=== PATIENT | female | born 1990 | race Caucasian/White ===

== ENCOUNTER → 2023-07-20 12:55 | Outpatient (BNVA) | payer OTHER, SELFPAY | PROVIDERS: PCP Internal Medicine; Visit Provider Physician Assistant Surgical ==

== ENCOUNTER 2023-08-16 13:16 | Outpatient (AMB) | payer OTHER, SELFPAY ==
[2023-08-16 13:33] VITALS: BP 130/92; PULSE 60; TEMP 36.4; O2SAT 100; BMI 37.6
--- NOTE | 2023-08-16 13:33 | MHC.OFFVISWM ---
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 Her goal is to improve her health as she is a single mother & she would like to learn healthy habits to pass to her children.? She reports first being concerned about his/her weight around age 13. She notes that she is at the heaviest of her adult life with the exception of when she was .? He/She has tried multiple methods of weight loss including Weight Watchcer's, multiple diets without permanent results. She lives with her 3 children and is not currently working; she reports her mother, who is on vacation, helps with her children. She does not currently have an established exercise program other than when she takes her children outside to play. The patient knows that a friend of hers named Leonila completed the surgical weight loss program and she is interested in a laparoscopic sleeve gastrectomy. PMH: BHANU, prescribed CPAP, but not compliant PSH: tubal She wakes at:???0600? bed at: 1100pm Breakfast: 0800, toast, eggs, or waffles Lunch: sandwich, mac & cheese Dinner: [place], pasta, After dinner: snacks: candy, chips, pastries Other snacks: sweets Liquids: Fruit juices, water, milk, coffee with sweeteners as a treat, no soda Alcohol intake: ?nil? nicotine: ?denies? marijuana:?denies? drugs:?denies? caffeine: coffee 1-2/day Exercise: nothing established Last mammogram: Last pap smear: control method: tubal Colonoscopy: MARINA: 0 ESS: 3 GERD: 0 QOL 82 PFSH Surgical History (Updated 08/16/23 @ 15:07 by Mitali Bright [facility]) Hx of rhinoplasty Hx of section Social History Alcohol intake: never Patient Tobacco Use Status: Never used Tobacco Review of Systems Const All systems reviewed & are unremarkable except as noted in HPI and below Reports as per HPI Physical Exam On exam, the patient is nontoxic She is in no acute respiratory distress She is anicteric Assessment & Plan Assessment & Plan (1) BMI 37.0-37.9, adult: Code(s): Z68.37 - Body mass index [BMI] 37.0-37.9, adult (2) BHANU (obstructive sleep apnea): Code(s): G47.33 - Obstructive sleep apnea (adult) (pediatric) (3) Non-restorative sleep: Code(s): G47.8 - Other sleep disorders Plan The patient acknowledged non restorative sleep and reports a history of obstructive sleep apnea, while her Howe sleep scale is only 3, I have ordered a sleep study due to her complaints of fatigue 7 non-restorative sleep. The patient also reports difficulty falling and staying asleep due to traumatic events that also interfere with her ability to use CPAP. Will set up with behavioral health. Using a teaching solar sales energy advisor we reviewed normal anatomy and physiology. The patient is interested in a laparoscopic sleeve gastrectomy, so we reviewed handouts regarding healthy diet as well as the need for engagement in diet and exercise or surgical weight loss will fail. The patient noted with her children present she would like to discuss the matter in greater detail since they were quite were restless through the visit. Handouts regarding diet, exercise, protein supplements were provided to the patient in reviewed. She notes that she has Premier protein shakes that her premade at home but seldom uses them. She is instructed to substitute at least 1 meal, preferably 2 and is interested in proceeding with a workup towards laparoscopic sleeve gastrectomy. Given her fixed income, she asked for time to evaluate options regarding the recommended celebrate rebuild protein shakes verses the Premier protein shakes that she has at home and would like to discuss this in greater detail. Handout regarding exercise tracking apps were also provided. I will see the patient back for 1 hour visit in 2 weeks. See orders Orders: Orders Insulin Today G47.33 - Obstructive sleep apnea (adult) (pediatric), G47.8 - Other sleep disorders, Z68.37 - Body mass index [BMI] 37.0-37.9, adult Lipid Panel Today G47.33 - Obstructive sleep apnea (adult) (pediatric), G47.8 - Other sleep disorders, Z68.37 - Body mass index [BMI] 37.0-37.9, adult Vitamin B12 and Folate Today G47.33 - Obstructive sleep apnea (adult) (pediatric), G47.8 - Other sleep disorders, Z68.37 - Body mass index [BMI] 37.0-37.9, adult Zinc Today G47.33 - Obstructive sleep apnea (adult) (pediatric), G47.8 - Other sleep disorders, Z68.37 - Body mass index [BMI] 37.0-37.9, adult Comprehensive Met. Panel Today G47.33 - Obstructive sleep apnea (adult) (pediatric), G47.8 - Other sleep disorders, Z68.37 - Body mass index [BMI] 37.0-37.9, adult Vitamin B1 Today G47.33 - Obstructive sleep apnea (adult) (pediatric), G47.8 - Other sleep disorders, Z68.37 - Body mass index [BMI] 37.0-37.9, adult Vitamin A Today G47.33 - Obstructive sleep apnea (adult) (pediatric), G47.8 - Other sleep disorders, Z68.37 - Body mass index [BMI] 37.0-37.9, adult C Reactive Protein Today G47.33 - Obstructive sleep apnea (adult) (pediatric), G47.8 - Other sleep disorders, Z68.37 - Body mass index [BMI] 37.0-37.9, adult Ferritin Today G47.33 - Obstructive sleep apnea (adult) (pediatric), G47.8 - Other sleep disorders, Z68.37 - Body mass index [BMI] 37.0-37.9, adult PTHI Today G47.33 - Obstructive sleep apnea (adult) (pediatric), G47.8 - Other sleep disorders, Z68.37 - Body mass index [BMI] 37.0-37.9, adult TSH reflex Free T4 Today G47.33 - Obstructive sleep apnea (adult) (pediatric), G47.8 - Other sleep disorders, Z68.37 - Body mass index [BMI] 37.0-37.9, adult H Pylori Breath Test Today G47.33 - Obstructive sleep apnea (adult) (pediatric), G47.8 - Other sleep disorders, Z68.37 - Body mass index [BMI] 37.0-37.9, adult Vitamin D 25-OH Total Today G47.33 - Obstructive sleep apnea (adult) (pediatric), G47.8 - Other sleep disorders, Z68.37 - Body mass index [BMI] 37.0-37.9, adult Hemoglobin A1c Today G47.33 - Obstructive sleep apnea (adult) (pediatric), G47.8 - Other sleep disorders, Z68.37 - Body mass index [BMI] 37.0-37.9, adult ECG 12 lead EKG Today G47.33 - Obstructive sleep apnea (adult) (pediatric), G47.8 - Other sleep disorders, Z68.37 - Body mass index [BMI] 37.0-37.9, adult FL upper GI w air Today G47.33 - Obstructive sleep apnea (adult) (pediatric), G47.8 - Other sleep disorders, Z68.37 - Body mass index [BMI] 37.0-37.9, adult IRON PROFILE Today G47.33 - Obstructive sleep apnea (adult) (pediatric), G47.8 - Other sleep disorders, Z68.37 - Body mass index [BMI] 37.0-37.9, adult Complete Blood Count Auto Diff Today G47.33 - Obstructive sleep apnea (adult) (pediatric), G47.8 - Other sleep disorders, Z68.37 - Body mass index [BMI] 37.0-37.9, adult US abdomen comp w elastography Today G47.33 - Obstructive sleep apnea (adult) (pediatric), G47.8 - Other sleep disorders, Z68.37 - Body mass index [BMI] 37.0-37.9, adult XR chest 2V Today G47.33 - Obstructive sleep apnea (adult) (pediatric), G47.8 - Other sleep disorders, Z68.37 - Body mass index [BMI] 37.0-37.9, adult RT home sleep study Today G47.33 - Obstructive sleep apnea (adult) (pediatric), G47.8 - Other sleep disorders, Z68.37 - Body mass index [BMI] 37.0-37.9, adult Referrals Behavioral Health Referral G47.33 - Obstructive sleep apnea (adult) (pediatric), G47.8 - Other sleep disorders, Z68.37 - Body mass index [BMI] 37.0-37.9, adult Nutrition/Dietitian Referral G47.33 - Obstructive sleep apnea (adult) (pediatric), G47.8 - Other sleep disorders, Z68.37 - Body mass index [BMI] 37.0-37.9, adult Coding Level of Care Code New Pt Level 4 (45487) Diagnoses BMI 37.0-37.9, adult Z68.37 BHANU (obstructive sleep apnea) G47.33 Non-restorative sleep G47.8
[2023-08-25 14:26] LABS: H Pylori Breath Test Negative (Negative)
== END 2023-08-16 15:10 | disposition home or self-care (01) ==
PROVIDERS: PCP Internal Medicine; Visit Provider Surgery
DX: E66.09 Other obesity due to excess calories (principal); Z68.37 Body mass index [BMI] 37.0-37.9, adult; G47.33 Obstructive sleep apnea (adult) (pediatric); G47.8 Other sleep disorders
CPT/HCPCS: 99204

== ENCOUNTER → 2023-08-16 13:16 | Outpatient (BNVA) | payer OTHER, SELFPAY | PROVIDERS: PCP Internal Medicine; Visit Provider Surgery | DX: G47.33 Obstructive sleep apnea (adult) (pediatric) (principal); G47.8 Other sleep disorders; Z11.0 Encounter for screening for intestinal infectious diseases | CPT/HCPCS: 83013; 99202 ==

== ENCOUNTER 2023-08-24 11:00 | Outpatient (AMB) | payer OTHER, SELFPAY ==
--- NOTE | 2023-08-24 11:06 | MHC.OFFVISWM ---
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 Her goal is to improve her health as she is a single mother & she would like to learn healthy habits to pass to her children.? She reports first being concerned about his/her weight around age 13. She notes that she is at the heaviest of her adult life with the exception of when she was .? He/She has tried multiple methods of weight loss including Weight Watchcer's, multiple diets without permanent results. She lives with her 3 children and is not currently working; she reports her mother, who is on vacation, helps with her children. She does not currently have an established exercise program other than when she takes her children outside to play. The patient knows that a friend of hers named Leonila completed the surgical weight loss program and she is interested in a laparoscopic sleeve gastrectomy. PMH: BHANU, prescribed CPAP, but not compliant PSH: tubal She wakes at:???0600? bed at: 1100pm Breakfast: 0800, toast, eggs, or waffles Lunch: sandwich, mac & cheese Dinner: [place], pasta, After dinner: snacks: candy, chips, pastries Other snacks: sweets Liquids: Fruit juices, water, milk, coffee with sweeteners as a treat, no soda Alcohol intake: ?nil? nicotine: ?denies? marijuana:?denies? drugs:?denies? caffeine: coffee 1-2/day Exercise: nothing established Last mammogram: not due Last pap smear: unsure, asymptomatic control method: tubal Colonoscopy: not due/asymptomatic MARINA: 0 ESS: 3 GERD: 0 QOL 82 The patient has lost approximately 10 lb since her initial weight of 247.2 lb/BMI 37.6. At today's weight a.m., she is 237.6 lb with a BMI of 36.1. She is a single mom with toddler aged twins and a 10-year-old at home. 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 She is on a fixed income and notes that she cannot afford Celebrate protein shakes but is using Premier protein which is covered by her assistance. She is also unable to purchase a on body composition scale. Current meal plan: Patient is using 2 premade Premier protein shakes 10 forkfuls protein/vegs Snacks: hardboiled eggs PFSH Surgical History Hx of rhinoplasty Hx of section Social History Alcohol intake: never Patient Tobacco Use Status: Never used Tobacco Review of Systems Const All systems reviewed & are unremarkable except as noted in HPI and below Reports as per HPI Physical Exam Vital Signs: Last Vital Signs Temp 97.3 F 08/24/23 11:21 Pulse 94 08/24/23 11:21 BP 141/92 H 08/24/23 11:21 Pulse Ox 99 08/24/23 11:21 Oxygen Delivery Method Room Air 08/24/23 11:21 BMI result Body Mass Index 36.1 On exam, the patient is nontoxic She is in no acute respiratory distress She is anicteric Assessment & Plan Assessment & Plan (1) BMI 37.0-37.9, adult: Code(s): Z68.37 - Body mass index [BMI] 37.0-37.9, adult (2) BHANU (obstructive sleep apnea): Code(s): G47.33 - Obstructive sleep apnea (adult) (pediatric) (3) Non-restorative sleep: Code(s): G47.8 - Other sleep disorders Plan The patient remains interested in moving forward with laparoscopic sleeve gastrectomy. 71 minutes were spent reviewing the patient's meal plan, exercise options and the importance of following a high-protein/high-fiber diet and avoiding carbohydrates and concentrated fats. The pt had questions re: childcare, activity restrictions that seemed to be answered. Typical postoperative course and the inherent risks of surgery including bleeding, infection, dehydration with the risk of DVT and fatal PE was discussed; the importance of following the diet postoperatively and the risk of weight regain if maladaptive eating and sedentary behavior resume was discussed and apparently understood. As the patient is a single mom, the importance of obtaining assistance regarding her toddlers/twins for a couple weeks postoperatively was reviewed. Activity restrictions were also reviewed and apparently understood. Patient is advised to wean herself off of caffeine since she is currently using caffeinated protein drinks (1/day) before surgery. See orders. The pt will text weekly weights & questions. Meal plan updated at today's visit. The patient will follow-up with me at the end of August. Preop Bariatric Plan 1.?? Nutritional counseling:?Be sure to careful read the number of scoops per shake if you are using powdered mix.? Premier premixed or powdered shakes & the protein bar of your choice.? Remember to be sure the bar has twice as much protein as sugar/carbs! Start with? Premier Protein shakes First shake at 7-9am Second shake, (1 scoops in 8 oz low fat milk) at Noon-2pm 1 protein bar ?bars at 3-4pm. Dinner at 4pm (10 forks of protein and 10 forks of salad/vegetables). Meal to include lean meat (beef, fish, pork, turkey, chicken), cooked vegetables or a salad with olive oil and/or fruits (berries, pears, apples, kiwi). Avoid breads, potatoes, starches, rice, pasta, desserts.? The sooner you decrease carbohydrates & excess fats, the sooner you will reach your goal. 2.?? You must closely monitor your blood glucose/pressure if appropriate due to diabetes or HTN. After dinner snacking should be protein bar if needed. Try to drink 64 oz of water daily and avoid soda and juices. ?2. Each shake would be drunk slowly, like coffee in a period of 2 hours. ?3. Cut each bar in 4 pieces and eat each piece in 30 min to make each bar last 2 hours. ?4. I emphasized the importance of measuring accurately the food portion and measure it carefully when serving the food on the plate ?5. The meal portions include 10 full-size forks of meat and 10 full-size forks of salad. You should always eat the meat portion but you can skip the forks of salad/vegetables and replace with a fruit if you like. The less you do it the better weight loss will be. ?6. One full-size fork is what can be scooped on the fork without falling aside and not what can be bit with the fork. Use regular forks like those you find in a typical restaurant. ?7.? Please send me weight measurements as soon as possible and then once a week. Always include your diet and exercise plan. Alternatively come weekly at the office for weight checks and send me the measurements. ?8. Exercise counseling:? Begin by watching a stretching for beginner?s video.? Start slowly and begin to stretch your muscles.? You should do this before and after each exercise session to prevent injury.? Please use the exercise equipment at your building. Start elliptical with a resistance of 2. Increase resistance by 1 every 3 min to your most comfortable resistance with a max resistance of 8.? Reduce the resistance by 1 every 3 minutes back down to 2 and repeat cycles for 300 calories. Alternatively, start treadmill with a speed of 3.0 and incline of 0, increasing incline by 1 every 3 minutes to the highest comfortable level (max 6 for now) then decrease in the same fashion.? Repeat process to a goal of 300 calories.? Goal of 2000 calories burned or more weekly.? You may also consider use of the stationary bike.? The easiest would be to choose the fat-burn or interval training program on the machine and do this until you reach the 300 calorie goal.? Alternatively, you can manually adjust the resistance in a similar fashion as mentioned above, (resistance of 2-8 with a goal speed of 12 mph).?Tracking calories is essential. 9. Alternatively, start walking outside daily, tracking calories with a goal of 300 calories per day, daily. If [id number] is needed, you can start there, but the goal is DAILY. You can download the [place]?BOND?which can track your time, distance and calories while walking outside.? You press start in the [place] when you start and then stop when you are finished. ? 10.? It is important to avoid and for at least 18 months postoperatively and it has been discussed at the information session 11. Please get labs, EKG and chest X-Ray within 1 week. 12. Discussed and answered all questions regarding?obtained consent to participate in the [facility]?Registry. 13. Please follow the diet plan exactly, without any change.? If you do not like something about the plan or you feel hungry, you need to communicate with me so I can help you revise the plan.? You should not change the plan yourself. 14. Goal is to lose 1.5-2.0 lbs/week 15. Goal is to lose 10% of your weight before surgery, which is about 25 lbs. Ultimate weight goal: 222 lbs before surgery.? Remember that you may need to lose more weight to qualify for surgery if your abdominal ultrasound shows your liver or spleen are enlarged or if your upper GI shows a hiatal hernia. IF YOU EXPERIENCE PAIN, SEVERE SHORTNESS OF BREATH, DIZZINESS OR LIGHTHEADEDNESS, OR SIGNIFICANT CONSTIPATION OR DIARRHEA, (DIARRRHEA CAN OCCUR FROM SOME ARTIFICIAL SWEETENERS) PLEASE NOTIFY THE OFFICE! If you have diabetes, you will need to follow your blood sugars at least twice a day (morning & evening, or as needed if you are shaky/sweaty or feel hypoglycemic).? Please discuss with Dr. Strange.? Text Dr. Strange at [phone] If you have hypertension/high blood pressure, you will need to monitor your blood pressure regarding adjusting medications.? Please discuss with Dr. Strange.? Coding Level of Care Code Tele Est Pt Level 5 (82294) Diagnoses BMI 37.0-37.9, adult Z68.37 BHANU (obstructive sleep apnea) G47.33 Non-restorative sleep G47.8
[2023-08-24 11:21] VITALS: BP 141/92; PULSE 94; TEMP 36.3; O2SAT 99; BMI 36.1
== END 2023-08-24 13:01 | disposition home or self-care (01) ==
PROVIDERS: PCP Internal Medicine; Visit Provider Surgery
DX: E66.9 Obesity, unspecified (principal); Z68.36 Body mass index [BMI] 36.0-36.9, adult; G47.33 Obstructive sleep apnea (adult) (pediatric); G47.8 Other sleep disorders
CPT/HCPCS: 99214

== ENCOUNTER → 2023-08-24 11:00 | Outpatient (BNVA) | payer OTHER, SELFPAY | PROVIDERS: PCP Internal Medicine; Visit Provider Surgery | DX: G47.33 Obstructive sleep apnea (adult) (pediatric) (principal); G47.8 Other sleep disorders | CPT/HCPCS: 99212 ==

== ENCOUNTER 2023-08-28 08:51 | Outpatient (REF) | payer OTHER, SELFPAY ==
--- NOTE | ~2023-08-28 | XR_ITS ---
EXAMINATION: XR CHEST CLINICAL INFORMATION: Overweight COMPARISON: None available. TECHNIQUE: 2 views of the chest were obtained. FINDINGS: No significant abnormality is noted involving the heart, lungs, mediastinum, bony thorax or soft tissues. XR/XR chest 2V IMPRESSION: Unremarkable examination.
--- NOTE | 2023-08-28 08:57 | ECG_ITS ---
Test Reason : bmi 37.6 37.9 Blood Pressure : / mmHG Vent. Rate : 078 BPM Atrial Rate : 078 BPM P-R Int : 168 ms QRS Dur : 084 ms QT Int : 392 ms P-R-T Axes : 014 006 050 degrees QTc Int : 446 ms Normal sinus rhythm Normal ECG No previous ECGs available Referred By: Humza Strange Electronically Signed By:STEPHANIE VAZQUEZ
[2023-08-28 09:42] LABS: MANUAL DIFF FLAG NO
[2023-08-28 10:32] LABS: Basophils Percent Auto 0.5 % (0-2); Eosinophils Absolute Auto 0.1 X10*3/uL (0.0-0.4); Eosinophils Percent Auto 1.4 % (0-4); Hematocrit 42.9 % (37.0-47.0); Hemoglobin 14.1 g/dl (12.0-16.0); Imm Gran Abs Auto 0.02 X10*3/uL (0.00-0.03); Imm Gran Pct Auto 0.3 % (0.0-0.4); Lymphocytes Percent Auto 31.6 % (20-40); Mean Corpuscular HGB Conc 32.9 g/dl (31.0-35.0); Mean Corpuscular Hemoglobin 29.6 pg (27.0-33.0); Mean Corpuscular Volume 89.9 fL (80.0-98.0); Mean Platelet Volume 9.8 fL (9.4-12.3); Monocytes Absolute Auto 0.4 X10*3/uL (0.1-1.2); Monocytes Percent Auto 5.6 % (2-11); Neutrophils Absolute Auto 3.9 x10*3/uL (2.0-8.3); Neutrophils Percent Auto 60.6 % (45-73); Platelet Count 390 X10*3/uL (160-400); Red Blood Count 4.77 X10*6/uL (4.20-5.50); Red Cell Distribution Width 12.6 % (11.0-16.0); White Blood Count 6.4 X10*3/uL (4.8-10.8)
[2023-08-28 10:43] LABS: Estimated Average Glucose 94 mg/dL; Hemoglobin A1c % 4.9 % (<6.0)
[2023-08-28 11:22] LABS: Alanine Aminotransferase 16 U/L (0-31); Albumin Level 4.1 g/dL (3.5-5.0); Alkaline Phosphatase 93 U/L (39-117); Anion Gap 11 (12-20); Aspartate Amino Transferase 17 U/L (5-31); Bilirubin Total 0.4 mg/dL (0.0-1.0); Blood Urea Nitrogen 18 mg/dL (9-16); C Reactive Protein 0.56 mg/dL (< or = 0.50); Calcium 9.4 mg/dL (8.4-10.2); Carbon Dioxide 25 mmol/L (22-29); Chloride 106 mmol/L (96-108); Cholesterol 165 mg/dL (<200); Estimated Glomerular Filt Rate > 60; Glucose Random 83 mg/dL (60-115); HDL Cholesterol 44 mg/dL (>40); Iron 75 mcg/dL (30-160); LDL Cholesterol Calculated 103 mg/dL (<100); Percent Iron Saturation 23 % (15-50); Potassium 3.9 mmol/L (3.3-5.1); Sodium 138 mmol/L (135-145); Total Iron Binding Capacity 325 mcg/dL (228-428); Total Protein 7.7 g/dL (6.5-8.0); Triglycerides 90 mg/dL (<150); Unsaturated Iron Binding 250 ug/dL
[2023-08-28 11:28] LABS: Ferritin 21 ng/mL (10-122); Insulin 6 uU/mL (2-29); TSH reflex Free T4 0.73 uIU/mL (0.32-4.0); Vitamin D 25-OH Total 42.8 ng/mL (>30)
[2023-08-28 11:32] LABS: Folate 14.9 ng/mL (> or = 4.0); Vitamin B12 485 pg/mL (200-900)
[2023-08-29 16:09] LABS: Calcium (PTHI) 9.5 mg/dL (8.6-10.2); PTHI 30 pg/mL (16-77)
[2023-08-31 14:53] LABS: Zinc 78 mcg/dL (60-130)
[2023-09-01 16:18] LABS: Vitamin A 44 mcg/dL (38-98)
[2023-09-02 08:44] LABS: Vitamin B1 12 nmol/L (8-30)
== END 2023-08-28 08:52 | disposition home or self-care (01) ==
LOC: HO.XRAY 08:51
PROVIDERS: PCP Internal Medicine; Visit Provider Surgery
DX: G47.33 Obstructive sleep apnea (adult) (pediatric) (principal); G47.8 Other sleep disorders; E66.9 Obesity, unspecified
CPT/HCPCS: 36415; 71046; 80053; 80061; 82306; 82607; 82728; 82746; 83036; 83525; 83540; 83970; 84425; 84443; 84590; 84630; 85025; 86140; 93005

== ENCOUNTER 2023-08-30 12:13 | Outpatient (AMB) | payer OTHER, SELFPAY ==
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
== END 2023-08-30 12:38 | disposition home or self-care (01) ==
LOC: HO.HBST 12:14
PROVIDERS: PCP Internal Medicine; Visit Provider Counselor Mental Health
DX: F41.1 Generalized anxiety disorder (principal); Z68.37 Body mass index [BMI] 37.0-37.9, adult
CPT/HCPCS: 90791

== ENCOUNTER → 2023-08-30 12:13 | Outpatient (BNVA) | payer OTHER, SELFPAY | PROVIDERS: PCP Internal Medicine; Visit Provider Counselor Mental Health ==

== ENCOUNTER 2023-09-19 12:06 | Outpatient (AMB) | payer OTHER, SELFPAY ==
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
== END 2023-09-19 14:52 | disposition home or self-care (01) ==
LOC: HO.HBST 12:06
PROVIDERS: PCP Internal Medicine; Visit Provider Counselor Mental Health
DX: F41.1 Generalized anxiety disorder (principal); Z68.37 Body mass index [BMI] 37.0-37.9, adult
CPT/HCPCS: 90832

== ENCOUNTER → 2023-09-19 12:06 | Outpatient (BNVA) | payer OTHER, SELFPAY | PROVIDERS: PCP Internal Medicine; Visit Provider Counselor Mental Health ==

== ENCOUNTER → 2023-09-21 11:03 | Outpatient (BNVA) | payer OTHER, SELFPAY | PROVIDERS: PCP Internal Medicine; Visit Provider Dietitian, Registered | DX: E66.9 Obesity, unspecified (principal) | CPT/HCPCS: 97802 ==

== ENCOUNTER → 2023-09-24 11:08 | Outpatient (BNVA) | payer OTHER, SELFPAY | PROVIDERS: PCP Internal Medicine; Visit Provider Surgery ==

== ENCOUNTER → 2023-09-27 14:00 | Outpatient (REF) | payer OTHER, SELFPAY | LOC: HO.SL 14:00 | PROVIDERS: PCP Internal Medicine; Visit Provider Surgery | DX: G47.33 Obstructive sleep apnea (adult) (pediatric) (principal) | CPT/HCPCS: 95806 ==

== ENCOUNTER → 2023-09-27 14:08 | Outpatient (BNV) | payer OTHER, SELFPAY | PROVIDERS: PCP Internal Medicine; Visit Provider Internal Medicine | DX: R06.83 Snoring (principal) | CPT/HCPCS: 95806 ==

== ENCOUNTER 2023-10-03 11:04 | Outpatient (AMB) | payer OTHER, SELFPAY ==
--- NOTE | 2023-10-03 11:11 | MHC.OFFVISWM ---
Intake VS Expanded 10/03/23 11:21 BP 119/56 L Blood Pressure Location Rt brachial Blood Pressure Position Sitting Pulse 67 Pulse Source Pulse Oximeter Temp 96.9 F Temperature Source Tympanic Pulse Oximetry 97 Oxygen Delivery Method Room Air Height 5 ft 8 in Weight 229 lb 3.2 oz BMI 34.8 Body Fat % 42.1 Body Fat Mass 96.4 Fat Free Mass 132.8 Visceral Fat Rating 9.0 Body Water % 41.5 Body Water Mass 95.0 Muscle Mass/Score 126.2 Basal Metabolic Rate/Score 1,864 Intake Visit Reasons: ov f/u SWL Allergies No Known Allergies Allergy (Verified 10/03/23 11:17) HPI HPI Comments History of Present Illness Details This is a 32 year old woman who is here to start SWL program with SWL classes. Her goal is to improve her health as she is a single mother & she would like to learn healthy habits to pass to her children.? She reports first being concerned about his/her weight around age 13. She notes that she is at the heaviest of her adult life with the exception of when she was .? He/She has tried multiple methods of weight loss including Weight Watchcer's, multiple diets without permanent results. She lives with her 3 children and is not currently working; she reports her mother, who is on vacation, helps with her children. She does not currently have an established exercise program other than when she takes her children outside to play. The patient knows that a friend of hers named Leonila completed the surgical weight loss program and she is interested in a laparoscopic sleeve gastrectomy. PMH: BHANU, prescribed CPAP, but not compliant PSH: tubal Preop work-up SWL classes BH f/u pending RD cleared Labs MVI wnl, CRP 0.56 H. pylori neg EKG NSR CXR NAD Abd U/S UGI MARINA: 0 ESS: 3 GERD: 0 QOL 82 The patient has lost 18 lb since her initial weight of 247.2 lb/BMI 37.6. At today's weight a.m., she is 229.2/BMI 34.8 & is congratulated on her 18 lb weight loss since entering the program. She denies any hunger or concerns regarding the meal plan. We reviewed her goal of 25 lb weight loss and weight of 222 lb. She is a single mom with toddler-aged twins and a 10-year-old at home. 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 She is on a fixed income and notes that she cannot afford Celebrate protein shakes but is using Premier protein which is covered by her assistance. She is also unable to purchase a on body composition scale. Current meal plan: Patient is using 2 premade Premier protein shakes 10 forkfuls protein/vegs Snacks: hardboiled eggs Using Flintstones chewable MVI 2/day She's drinking about 30 oz of water/day Exercise: She is exercising several times a week, mostly at home with videos and exercise equipment due to childcare. She goes to the gym roughly twice a week, per her exercise watch, is burning approximately 250-350 kcal per exercise session. At this time, she is exercising approximately 4 times a week but not trending calories each time. [facility] Surgical History Hx of rhinoplasty Hx of section Social History Alcohol intake: never Patient Tobacco Use Status: Never used Tobacco Review of Systems Const All systems reviewed & are unremarkable except as noted in HPI and below Results Reviewed Results Reviewed: labs 08/28/23 Hb 14.4 N/N Fe wnl; wbc 6.4, Plts 390K H pylori neg CRP elevated at 0.56, Insulin 6, HbA1C 4.9, LDL slightly high, Chol 165 MVI WNL BUN 18 (elevated), Cr 0.65 CXR NAD U/S pending UGI pending Repeat sleep study was negative for BHANU, but the patient carries the diagnosis from previous sleep study Assessment & Plan Assessment & Plan (1) BMI 34.0-34.9,adult: Code(s): Z68.34 - Body mass index [BMI] 34.0-34.9, adult (2) Non-restorative sleep: Code(s): G47.8 - Other sleep disorders (3) BHANU (obstructive sleep apnea): Code(s): G47.33 - Obstructive sleep apnea (adult) (pediatric) Plan No changes are made to the patient's meal plan. Because of her limited funds, she again noted that she will not be able to afford celebrate rebuild at this time and cannot afford a body composition scale nor protein products other than what she is using. The importance of hydration to minimize risk of dehydration and DVT/fatal PE was discussed and apparently understood. The importance of more accurately tracking calorie burned by exercise was discussed. Patient is congratulated on her ongoing healthy lifestyle changes and the importance of diet and exercise as part of surgical weight loss was again reviewed. The patient remains interested in a laparoscopic sleeve gastric and will follow-up with me in 3 weeks. Coding Level of Care Code Est Pt Level 4 (61688) Diagnoses BMI 34.0-34.9,adult Z68.34 Non-restorative sleep G47.8 BHANU (obstructive sleep apnea) G47.33
[2023-10-03 11:21] VITALS: BP 119/56; PULSE 67; TEMP 36.1; O2SAT 97; BMI 34.8
== END 2023-10-03 12:02 | disposition home or self-care (01) ==
PROVIDERS: PCP Internal Medicine; Visit Provider Surgery
DX: E66.9 Obesity, unspecified (principal); Z68.34 Body mass index [BMI] 34.0-34.9, adult; G47.8 Other sleep disorders; G47.33 Obstructive sleep apnea (adult) (pediatric)
CPT/HCPCS: 99214

== ENCOUNTER → 2023-10-03 11:04 | Outpatient (BNVA) | payer OTHER, SELFPAY | PROVIDERS: PCP Internal Medicine; Visit Provider Surgery | DX: G47.8 Other sleep disorders (principal); G47.33 Obstructive sleep apnea (adult) (pediatric) | CPT/HCPCS: 99212 ==

== ENCOUNTER 2023-10-09 10:25 | Outpatient (AMB) | payer OTHER, SELFPAY ==
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
== END 2023-10-09 10:29 | disposition home or self-care (01) ==
LOC: HO.HBST 10:25
PROVIDERS: PCP Internal Medicine; Visit Provider Counselor Mental Health
DX: F41.1 Generalized anxiety disorder (principal); Z68.37 Body mass index [BMI] 37.0-37.9, adult
CPT/HCPCS: 90832

== ENCOUNTER → 2023-10-09 10:25 | Outpatient (BNVA) | payer OTHER, SELFPAY | PROVIDERS: PCP Internal Medicine; Visit Provider Counselor Mental Health ==

== ENCOUNTER 2023-10-25 11:00 | Outpatient (AMB) | payer OTHER, SELFPAY ==
--- NOTE | 2023-10-25 11:14 | A.OFFVIS_ITS ---
Intake VS Expanded 10/25/23 11:32 BP 146/76 H Blood Pressure Location Rt brachial Blood Pressure Position Sitting Pulse 67 Pulse Source Pulse Oximeter Temp 96.0 F L Temperature Source Tympanic Pulse Oximetry 99 Oxygen Delivery Method Room Air Height 5 ft 8 in Weight 224 lb 6.4 oz BMI 34.1 Body Fat % 41.9 Body Fat Mass 93.0 Fat Free Mass 131.0 Visceral Fat Rating 9.0 Body Water % 41.9 Body Water Mass 94.0 Muscle Mass/Score 124.6 Basal Metabolic Rate/Score 1,836 Intake Visit Reasons: ov f/u SWL Lump Maker Required: No Fare Register Repairer: Fare Register Repairer offered & declined Allergies No Known Allergies Allergy (Verified 10/25/23 11:40) Medication List - Last Reconciled 10/25/23 by Humza Strange MD, FACS, FASMBS ibuprofen 600 mg PO TID oxycodone-acetaminophen 5-325 mg 1 tab PO DAILY PRN sumatriptan succinate mg PO DAILY HPI HPI Comments History of Present Illness Details The patient presents for f/u SWL; initial weight of 247.2 lb/BMI 37.6 and prior h/o BHANU (non-compliant with CPAP) was noted on entry into the program but retesting did not show BHANU. At today's weight she is 224.4/BMI 34.1 & is congratulated on her 23 lb weight loss since entering the program. She denies any hunger or concerns regarding the meal plan. We reviewed her goal of 25 lb weight loss and weight of 222 lb. Her UGI & Abd U/S elastography are scheduled for next week. She is interested in surgery this year, if possible. Her mom will help with her 17 month old children. She is a single mom with toddler-aged twins and a 10-year-old at home. 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 She is on a fixed income and notes that she cannot afford Celebrate protein shakes but is using Premier protein which is covered by her assistance. She is also unable to purchase a on body composition scale. Current meal plan: Patient is using 2 premade Premier protein shakes 10 forkfuls protein/vegs Snacks: hardboiled eggs Using Flintstones chewable MVI 2/day She's drinking about 30 oz of water/day Exercise: She is exercising several times a week, mostly at home with videos and exercise equipment due to childcare. She goes to the gym roughly twice a week, per her exercise watch, is burning approximately 250-350 kcal per exercise session. At this time, she is exercising approximately 4 times a week but not trending calories each time. PMH: BHANU (non-compliant with CPAP) reported PSH: tubal MARINA: 0 ESS: 3 GERD: 0 QOL 82 Preop work-up SWL classes 07/[address] cleared Labs MVI wnl, CRP 0.56 H. pylori neg EKG NSR CXR NAD Abd U/S UGI PFSH Surgical History Hx of rhinoplasty Hx of section Social History Alcohol intake: never Patient Tobacco Use Status: Never used Tobacco Review of Systems Const All systems reviewed & are unremarkable except as noted in HPI and below Physical Exam On exam, the patient is nontoxic She is in no acute respiratory distress She is anicteric Results Reviewed Results Reviewed: labs 08/28/23 Hb 14.4 N/N Fe wnl; wbc 6.4, Plts 390K H pylori neg CRP elevated at 0.56, Insulin 6, HbA1C 4.9, LDL slightly high, Chol 165 MVI WNL BUN 18 (elevated), Cr 0.65 CXR NAD U/S UGI Repeat sleep study was negative for BHANU, but the patient carries the diagnosis from previous sleep study Assessment & Plan Assessment & Plan (1) BMI 34.0-34.9,adult: Code(s): Z68.34 - Body mass index [BMI] 34.0-34.9, adult (2) Generalized anxiety disorder: Code(s): F41.1 - Generalized anxiety disorder (3) Non-restorative sleep: Code(s): G47.8 - Other sleep disorders (4) BHANU (obstructive sleep apnea): Code(s): G47.33 - Obstructive sleep apnea (adult) (pediatric) Plan The patient is congratulated on her ongoing healthy lifestyle changes. She continues to note challenges related to her fixed income and purchasing of protein products. She notes that she is exercising to 300-350 kcal per session, 3 days a week and is interested in proceeding with laparoscopic or open sleeve gastrectomy, possible hiatal hernia repair, possible ventral hernia repair, intraoperative upper endoscopy. We briefly reviewed the typical postoperative course including overnight stay in the hospital as well as the unlikely but possible risks of bleeding or need for reoperation, dehydration that could cause DVT and fatal PE and the option of medical management instead of surgery. The patient is hopeful to proceed with surgery this month. Will submit to insurance Coding Level of Care Code Est Pt Level 4 (00785) Diagnoses BMI 34.0-34.9,adult Z68.34 Generalized anxiety disorder F41.1 Non-restorative sleep G47.8 BHANU (obstructive sleep apnea) G47.33
[2023-10-25 11:32] VITALS: BP 146/76; PULSE 67; TEMP 35.6; O2SAT 99; BMI 34.1
== END 2023-10-25 11:48 | disposition home or self-care (01) ==
PROVIDERS: PCP Internal Medicine; Visit Provider Surgery
DX: E66.9 Obesity, unspecified (principal); Z68.34 Body mass index [BMI] 34.0-34.9, adult; G47.33 Obstructive sleep apnea (adult) (pediatric); F41.1 Generalized anxiety disorder; G47.8 Other sleep disorders
CPT/HCPCS: 99214

== ENCOUNTER → 2023-10-25 11:00 | Outpatient (BNVA) | payer OTHER, SELFPAY | PROVIDERS: PCP Internal Medicine; Visit Provider Surgery | DX: G47.33 Obstructive sleep apnea (adult) (pediatric) (principal); F41.1 Generalized anxiety disorder; G47.8 Other sleep disorders | CPT/HCPCS: 99212 ==

== ENCOUNTER 2023-11-01 15:30 | Outpatient (AMB) | payer OTHER, SELFPAY ==
[2023-11-01 15:39] VITALS: BP 122/72; PULSE 75; TEMP 35.9; O2SAT 99; BMI 33.1
--- NOTE | 2023-11-01 15:39 | MHC.OFFVISWM ---
Intake VS Expanded 11/01/23 15:39 BP 122/72 Blood Pressure Location Rt brachial Blood Pressure Position Sitting Pulse 75 Pulse Source Pulse Oximeter Temp 96.7 F L Temperature Source Temporal Artery Scan Pulse Oximetry 99 Oxygen Delivery Method Room Air Height 5 ft 8 in Weight 218 lb BMI 33.1 Body Fat % 42.1 Body Fat Mass 91.8 Fat Free Mass 126.2 Visceral Fat Rating 9.0 Body Water % 41.5 Body Water Mass 90.4 Muscle Mass/Score 119.8 Basal Metabolic Rate/Score 1,770 Intake Visit Reasons: pre op SWL Chemical Processing Equipment Repairer Required: No Community Music Therapist: Community Music Therapist offered & declined Allergies No Known Allergies Allergy (Verified 11/01/23 15:42) Medication List - Last Reconciled 11/01/23 by Humza Strange MD, FACS, FASS oxycodone-acetaminophen 5-325 mg 1 tab PO DAILY PRN sumatriptan succinate mg PO DAILY HPI HPI Comments History of Present Illness Details The patient presents for f/u SWL; initial weight of 247.2 lb/BMI 37.6 and prior h/o BHANU (non-compliant with CPAP) was noted on entry into the program but retesting did not show BHANU. At today's weight she is 224.4/BMI 34.1 & is congratulated on her 23 lb weight loss since entering the program. She denies any hunger or concerns regarding the meal plan. We reviewed her goal of 25 lb weight loss and weight of 222 lb. Her UGI & Abd U/S elastography are scheduled for next week. She is interested in surgery this year, if possible. Her mom will help with her 17 month old children. She is a single mom with toddler-aged twins and a 10-year-old at home. 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 She is on a fixed income and notes that she cannot afford Celebrate protein shakes but is using Premier protein which is covered by her assistance. She is also unable to purchase a on body composition scale. Current meal plan: Patient is using 2 premade Premier protein shakes Using Flintstones chewable MVI 2/day She's drinking about 50-60 oz of water/day Exercise: She is exercising several times a week, mostly at home with videos and exercise equipment due to childcare. She goes to the gym roughly twice a week, per her exercise watch, is burning approximately 250-350 kcal per exercise session. At this time, she is exercising approximately 4 times a week but not trending calories each time. PMH: BHANU (non-compliant with CPAP) reported PSH: tubal MARINA: 0 ESS: 3 GERD: 0 QOL 82 Preop work-up SWL classes 07/[address] cleared Labs MVI wnl, CRP 0.56 H. pylori neg EKG NSR CXR NAD Abd U/S UGI PFSH Surgical History Hx of rhinoplasty Hx of section Social History Alcohol intake: never Patient Tobacco Use Status: Never used Tobacco Review of Systems Const All systems reviewed & are unremarkable except as noted in HPI and below Reports as per HPI Physical Exam Vital Signs: Last Vital Signs Temp 96.7 F L 11/01/23 15:39 Pulse 75 11/01/23 15:39 BP 122/72 11/01/23 15:39 Pulse Ox 99 11/01/23 15:39 Oxygen Delivery Method Room Air 11/01/23 15:39 BMI result Body Mass Index 33.1 On exam, the patient is nontoxic She is in no acute respiratory distress She is anicteric Results Reviewed Results Reviewed: labs 08/28/23 Hb 14.4 N/N Fe wnl; wbc 6.4, Plts 390K H pylori neg CRP elevated at 0.56, Insulin 6, HbA1C 4.9, LDL slightly high, Chol 165 MVI WNL BUN 18 (elevated), Cr 0.65 CXR NAD U/S UGI Repeat sleep study was negative for BHANU, but the patient carries the diagnosis from previous sleep study Assessment & Plan Assessment & Plan (1) BMI 34.0-34.9,adult: Code(s): Z68.34 - Body mass index [BMI] 34.0-34.9, adult (2) Generalized anxiety disorder: Code(s): F41.1 - Generalized anxiety disorder (3) Non-restorative sleep: Code(s): G47.8 - Other sleep disorders (4) BHANU (obstructive sleep apnea): Code(s): G47.33 - Obstructive sleep apnea (adult) (pediatric) Plan The patient has her upper GI and abdominal ultrasound pending. The patient would like to proceed with a laparoscopic sleeve gastrectomy, possible hiatal hernia repair, intraoperative upper endoscopy and possible ventral hernia repair. Options of medical management were reviewed. At this point in time, we are awaiting input from her insurance. I reviewed the inherent risks of this procedure which include, but are not limited to: Bleeding that could require another operation or blood transfusion; the inherent risks of transfusion reaction infectious disease from blood transfusions; the risk of staple line leaks that could cause sepsis, multi-system organ failure and ; the risk of mesenteric or deep vein thrombosis of the lower extremities that could cause a fatal pulmonary embolism was reviewed; the risk of GERD that could require conversion to gastric bypass was discussed; the risk of recurrent hiatal hernia, especially in the setting of weight regain was reviewed. The risk of weight regain if maladaptive eating and sedentary behavior continue was discussed. The importance of proper diet and increased activity to augment surgical weight loss and the fact that no operation would result in weight loss of poor dietary decisions and sedentary behavior are resumed were discussed at length and apparently understood. The patient had the option of having a frame wirer present and declined this option. The importance of following the recommended meal plan and exercise program were reviewed. Typical preop including 2 day bowel prep, pain management, early ambulation, hydrating to 50-60 oz water per day not including protein shakes was discussed. The risk of weight regain if she resumes maladaptive eating and sedentary behavior was reviewed. Prescriptions were sent as she requested to her pharmacy. Patient notes she is currently having some back issues and is taking oxycodone and Flexeril. The risks of nausea and constipation as well as Sleepiness and my recommendation to postpone surgery until her back issue his settle down was discussed. Patient noted that she will stop taking these medications. She also periodically takes ibuprofen and naproxen her back and also for migraines. The fact that she cannot take this medication due to sleeve gastrectomy was discussed and apparently understood. 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 She will receive Ancef, 2 g IV on-call. Orders: Orders Vitamin B1 Today F41.1 - Generalized anxiety disorder, G47.33 - Obstructive sleep apnea (adult) (pediatric), G47.8 - Other sleep disorders, Z68.34 - Body mass index [BMI] 34.0-34.9, adult Lipid Panel Today F41.1 - Generalized anxiety disorder, G47.33 - Obstructive sleep apnea (adult) (pediatric), G47.8 - Other sleep disorders, Z68.34 - Body mass index [BMI] 34.0-34.9, adult Type and Screen Today F41.1 - Generalized anxiety disorder, G47.33 - Obstructive sleep apnea (adult) (pediatric), G47.8 - Other sleep disorders, Z68.34 - Body mass index [BMI] 34.0-34.9, adult Vitamin B12 Today F41.1 - Generalized anxiety disorder, G47.33 - Obstructive sleep apnea (adult) (pediatric), G47.8 - Other sleep disorders, Z68.34 - Body mass index [BMI] 34.0-34.9, adult Partial Thromboplastin Time Today F41.1 - Generalized anxiety disorder, G47.33 - Obstructive sleep apnea (adult) (pediatric), G47.8 - Other sleep disorders, Z68.34 - Body mass index [BMI] 34.0-34.9, adult Vitamin D 25-OH Total Today F41.1 - Generalized anxiety disorder, G47.33 - Obstructive sleep apnea (adult) (pediatric), G47.8 - Other sleep disorders, Z68.34 - Body mass index [BMI] 34.0-34.9, adult Complete Blood Count Auto Diff Today F41.1 - Generalized anxiety disorder, G47.33 - Obstructive sleep apnea (adult) (pediatric), G47.8 - Other sleep disorders, Z68.34 - Body mass index [BMI] 34.0-34.9, adult IRON PROFILE Today F41.1 - Generalized anxiety disorder, G47.33 - Obstructive sleep apnea (adult) (pediatric), G47.8 - Other sleep disorders, Z68.34 - Body mass index [BMI] 34.0-34.9, adult Comprehensive Met. Panel Today F41.1 - Generalized anxiety disorder, G47.33 - Obstructive sleep apnea (adult) (pediatric), G47.8 - Other sleep disorders, Z68.34 - Body mass index [BMI] 34.0-34.9, adult TSH reflex Free T4 Today F41.1 - Generalized anxiety disorder, G47.33 - Obstructive sleep apnea (adult) (pediatric), G47.8 - Other sleep disorders, Z68.34 - Body mass index [BMI] 34.0-34.9, adult Vitamin A Today F41.1 - Generalized anxiety disorder, G47.33 - Obstructive sleep apnea (adult) (pediatric), G47.8 - Other sleep disorders, Z68.34 - Body mass index [BMI] 34.0-34.9, adult Hemoglobin A1c Today F41.1 - Generalized anxiety disorder, G47.33 - Obstructive sleep apnea (adult) (pediatric), G47.8 - Other sleep disorders, Z68.34 - Body mass index [BMI] 34.0-34.9, adult Prothrombin Time INR Today F41.1 - Generalized anxiety disorder, G47.33 - Obstructive sleep apnea (adult) (pediatric), G47.8 - Other sleep disorders, Z68.34 - Body mass index [BMI] 34.0-34.9, adult C Reactive Protein Today F41.1 - Generalized anxiety disorder, G47.33 - Obstructive sleep apnea (adult) (pediatric), G47.8 - Other sleep disorders, Z68.34 - Body mass index [BMI] 34.0-34.9, adult Ferritin Today F41.1 - Generalized anxiety disorder, G47.33 - Obstructive sleep apnea (adult) (pediatric), G47.8 - Other sleep disorders, Z68.34 - Body mass index [BMI] 34.0-34.9, adult Zinc Today F41.1 - Generalized anxiety disorder, G47.33 - Obstructive sleep apnea (adult) (pediatric), G47.8 - Other sleep disorders, Z68.34 - Body mass index [BMI] 34.0-34.9, adult Medications: New ondansetron HCl 4 mg PO Q6H PRN 20 tabs 0RF nausea and vomiting sucralfate 10 mL PO BID 30 days 600 mL 2RF acetaminophen 500 mg (15 mL) PO Q6H PRN 237 mL 2RF fever or pain polyethylene glycol 3350 (Miralax) Take 7 packets 2 days before surgery and 7 packets 1 day before surgery. Mix each packet with 8 oz's of water before surgery. 14 packets 0RF pantoprazole 40 mg PO QAM 30 days 30 tabs 2RF Coding Level of Care Code Est Pt Level 4 (21943) Diagnoses BMI 34.0-34.9,adult Z68.34 Generalized anxiety disorder F41.1 Non-restorative sleep G47.8 BHANU (obstructive sleep apnea) G47.33
== END 2023-11-01 16:25 | disposition home or self-care (01) ==
PROVIDERS: PCP Internal Medicine; Visit Provider Surgery
DX: E66.9 Obesity, unspecified (principal); Z68.33 Body mass index [BMI] 33.0-33.9, adult; G47.33 Obstructive sleep apnea (adult) (pediatric)
CPT/HCPCS: 99024

== ENCOUNTER → 2023-11-01 15:30 | Outpatient (BNVA) | payer OTHER, SELFPAY | PROVIDERS: PCP Internal Medicine; Visit Provider Surgery | DX: Z01.818 Encounter for other preprocedural examination (principal); G47.33 Obstructive sleep apnea (adult) (pediatric); G47.8 Other sleep disorders; F41.1 Generalized anxiety disorder | CPT/HCPCS: 99212 ==

== ENCOUNTER 2023-11-02 08:32 | Outpatient (REF) | payer OTHER, SELFPAY ==
--- NOTE | ~2023-11-02 | US_ITS ---
EXAMINATION: US COMPLETE ABDOMEN WITH LIVER ELASTOGRAPHY CLINICAL INFORMATION: Obesity COMPARISON: None available. TECHNIQUE: Real-time imaging of the abdominal viscera. Noninvasive ultrasound liver fibrosis assessment is performed using Angela ElastPQ point quantification shear wave elastography (2D-SWE) with a C5-2 MHz transducer. Multiple elastography samples are obtained. FINDINGS: PANCREAS: Normal. ABDOMINAL AORTA: The proximal, middle, and distal aortic segments are normal in caliber. INFERIOR VENA CAVA: Visualized portions are normal. LIVER: The liver demonstrates normal size, contour and echogenicity. No intrahepatic biliary duct dilatation. 2.7 x 2.2 x 2.9 cm echogenic lesion in the right lobe of the liver probably representing a hemangioma. The right lobe measures 15 cm in length. The left lobe measures 9.6 cm in length. Portal flow is normal/hepatopedal Shear wave liver elastography median stiffness is 1.27 m/s (reference: normal median stiffness is 1.3 m/s or less). IQR/median stiffness to assess sampling precision is 0.06 (reference: good quality data set is IQR/median stiffness of 0.15 or less). GALLBLADDER: Small gallstones. The gallbladder is otherwise normal. COMMON BILE DUCT: Normal in caliber measuring 0.2 cm in diameter. RIGHT KIDNEY: Normal. No hydronephrosis. No renal calculi or focal parenchymal lesions. The kidney measures 9.4 cm in maximum dimension. LEFT KIDNEY: Normal. No hydronephrosis. No renal calculi or focal parenchymal lesions. The kidney measures 11 cm in maximum dimension. SPLEEN: Normal. The spleen measures 10 cm in maximum dimension. FREE FLUID: None. US/US abdomen comp w elastography IMPRESSION: 1. Impression: 2.7 x 2.2 x 2.9 cm echogenic lesion in the right lobe of the liver. This probably represents a benign hemangioma. This could be confirmed with liver MRI if clinically indicated. Gallstones. 2. Liver elastography: Adequate liver sampling. Normal liver stiffness. REFERENCE: Society of Radiologists in Ultrasound Liver Stiffness Thresholds (2020): LIVER STIFFNESS THRESHOLDS: *Liver Stiffness equal or less than 1.3 m/s: High probability of being normal. *Liver Stiffness less than 1.7 m/s: In the absence of other known clinical signs, rules out compensated advanced chronic liver disease. *Liver Stiffness 1.7-2.1 m/s: Suggestive of compensated advanced chronic liver disease but need further test for confirmation. *Liver Stiffness over 2.1 m/s: Rules in compensated advanced chronic liver disease. *Liver Stiffness over 2.4 m/s: Suggestive of clinically significant portal hypertension. QUALITY OF DATA SET: *IQR/Median value equal or less than 0.15 implies a quality data set. *IQR/Median value over 0.15 implies a poor quality data set. SIGNIFICANT CHANGE FROM PRIOR EXAM: Significant change if liver stiffness measurement is 10% or greater from prior exam. OTHER CONSIDERATIONS: The stage of liver fibrosis may be overestimated in the setting of acute hepatitis, liver inflammation, elevated liver function tests, hepatic vascular congestion, obstructive cholestasis, non-fasting state, and infiltrative diseases such as amyloidosis and lymphoma. In some patients with NAFLD, the liver stiffness thresholds for compensated advanced chronic liver disease may be lower. In causes other than viral hepatitis and NAFLD, liver stiffness thresholds are not well established.
--- NOTE | ~2023-11-02 | FL_ITS ---
EXAMINATION: XR FLUOROSCOPY UPPER GI WITH AIR CLINICAL INFORMATION: Preop evaluation prior to back surgery COMPARISON: None TECHNIQUE: Fluoroscopic air contrast upper GI examination was performed utilizing standard techniques with thin and thick barium and effervescent granules. Numerous spot images were obtained. FINDINGS: Lateral cine images of the oropharynx and hypopharynx demonstrate normal swallow mechanism with normal epiglottic inversion and soft palate elevation. No tracheal penetration, glottic or subglottic aspiration identified. No nasopharyngeal reflux present. Hypopharyngeal structures appear normal without evidence of mass or diverticulum. There was no significant cricopharyngeal achalasia. Dual and single contrast images of the esophagus demonstrate normal caliber, contour, and mucosal pattern. No evidence of stricture, mass, or ulcerations identified. Esophageal peristalsis was normal. No evidence of hiatus hernia identified. Gastroesophageal reflux is seen up to the midesophagus. Dual contrast and single contrast images of the stomach demonstrated normal contour and mucosal pattern without evidence of mass, ulceration, or other abnormality. Contrast freely passed into the gastric antrum and duodenal bulb without delay. Single and air-contrast images of the duodenal bulb demonstrate no abnormality. The duodenal sweep has a normal appearance, course, and mucosal fold appearance. The imaged proximal jejunum has a normal fold pattern and caliber. FLUOROSCOPY TIME: 4 minutes 10 seconds Number of Spot Images: 9 Number of Cine: 10 DOSE AREA PRODUCT: 2986 uGy-m2 (microgray-meter squared) FL/FL upper GI w air IMPRESSION: Gastroesophageal reflux, otherwise unremarkable examination This procedure was performed by Jaya Blanco PA-C, and supervised by Dr. Reveles
== END 2023-11-02 08:33 | disposition home or self-care (01) ==
LOC: HO.US 08:32
PROVIDERS: PCP Internal Medicine; Visit Provider Surgery
DX: Z01.818 Encounter for other preprocedural examination (principal); G47.33 Obstructive sleep apnea (adult) (pediatric); K21.9 Gastro-esophageal reflux disease without esophagitis; G47.8 Other sleep disorders
CPT/HCPCS: 74246; 76705; 76981

== ENCOUNTER → 2023-11-02 08:34 | Outpatient (BNV) | payer OTHER, SELFPAY | PROVIDERS: PCP Internal Medicine; Visit Provider Radiology Diagnostic Radiology | DX: Z01.818 Encounter for other preprocedural examination (principal) | CPT/HCPCS: 74246 ==

== ENCOUNTER 2023-11-03 08:52 | Outpatient (REF) | payer OTHER, SELFPAY ==
[2023-11-03 09:35] LABS: MANUAL DIFF FLAG NO
[2023-11-03 09:58] LABS: Basophils Percent Auto 0.5 % (0-2); Eosinophils Absolute Auto 0.1 X10*3/uL (0.0-0.4); Hematocrit 44.4 % (37.0-47.0); Imm Gran Abs Auto 0.01 X10*3/uL (0.00-0.03); Imm Gran Pct Auto 0.2 % (0.0-0.4); Lymphocytes Percent Auto 31.6 % (20-40); Mean Corpuscular HGB Conc 33.8 g/dl (31.0-35.0); Mean Corpuscular Hemoglobin 29.7 pg (27.0-33.0); Mean Corpuscular Volume 87.9 fL (80.0-98.0); Mean Platelet Volume 9.6 fL (9.4-12.3); Monocytes Absolute Auto 0.4 X10*3/uL (0.1-1.2); Neutrophils Absolute Auto 3.7 x10*3/uL (2.0-8.3); Neutrophils Percent Auto 59.7 % (45-73); Platelet Count 375 X10*3/uL (160-400); Red Blood Count 5.05 X10*6/uL (4.20-5.50); Red Cell Distribution Width 12.3 % (11.0-16.0); White Blood Count 6.2 X10*3/uL (4.8-10.8)
[2023-11-03 10:04] LABS: Estimated Average Glucose 97 mg/dL
[2023-11-03 10:06] LABS: Prothrombin Time 11.9 SEC (11.1-13.3)
[2023-11-03 10:08] LABS: Partial Thromboplastin Time 38.4 SEC (26.0-36.4)
[2023-11-03 10:27] LABS: Alanine Aminotransferase 19 U/L (0-31); Albumin Level 4.3 g/dL (3.5-5.0); Alkaline Phosphatase 99 U/L (39-117); Anion Gap 18 (12-20); Aspartate Amino Transferase 22 U/L (5-31); Bilirubin Total 0.5 mg/dL (0.0-1.0); Blood Urea Nitrogen 17 mg/dL (9-16); C Reactive Protein 0.88 mg/dL (< or = 0.50); Calcium 9.8 mg/dL (8.4-10.2); Carbon Dioxide 23 mmol/L (22-29); Chloride 104 mmol/L (96-108); Cholesterol 169 mg/dL (<200); Estimated Glomerular Filt Rate > 60; Glucose Random 62 mg/dL (60-115); HDL Cholesterol 46 mg/dL (>40); Iron 95 mcg/dL (30-160); LDL Cholesterol Calculated 106 mg/dL (<100); Percent Iron Saturation 30 % (15-50); Potassium 4.1 mmol/L (3.3-5.1); Sodium 141 mmol/L (135-145); Total Iron Binding Capacity 321 mcg/dL (228-428); Total Protein 8.1 g/dL (6.5-8.0); Triglycerides 88 mg/dL (<150); Unsaturated Iron Binding 226 ug/dL
[2023-11-03 10:46] LABS: Ferritin 44 ng/mL (10-122); Vitamin D 25-OH Total 55.9 ng/mL (>30)
[2023-11-03 10:51] LABS: Vitamin B12 1308 pg/mL (200-900)
[2023-11-06 06:18] LABS: Zinc 99 mcg/dL (60-130)
[2023-11-08 04:58] LABS: Vitamin A 39 mcg/dL (38-98)
[2023-11-10 15:28] LABS: Vitamin B1 10 nmol/L (8-30)
== END 2023-11-03 08:53 | disposition home or self-care (01) ==
LOC: HO.LAB 08:52
PROVIDERS: Visit Provider Surgery
DX: G47.33 Obstructive sleep apnea (adult) (pediatric) (principal); F41.1 Generalized anxiety disorder; G47.8 Other sleep disorders
CPT/HCPCS: 36415; 80053; 80061; 82306; 82607; 82728; 83036; 83540; 84425; 84443; 84590; 84630; 85025; 85610; 85730; 86140

== ENCOUNTER 2023-11-05 11:21 | Inpatient (IN) | payer OTHER, SELFPAY ==
--- NOTE | 2023-11-02 12:01 | P.CONAN_ITS ---
Documented by User: Abida Dumont NP 11/02/23 12:03 HPI - Anesthesia Eval Consult details Narrative: 33yo F for Gastrectomy Sleeve-EGD, possible diaphragmatic hernia, possible ventral hernia, possible open PMFSH Active Problems Active Problems: All Active Problems (Updated 10/03/23 @ 12:21 by Humza Strange MD, FACS, FASMBS) BMI 34.0-34.9,adult (Acute) Generalized anxiety disorder (Acute) Non-restorative sleep (Acute) BHANU (obstructive sleep apnea) (Acute) BMI 37.0-37.9, adult (Acute) Surgical History Surgical History (Updated 11/06/23 @ 07:09 by Humza Strange MD, FACS, FASMBS) Hx of tubal ligation Hx of rhinoplasty Hx of section Social History Social History Household Members: Family Housing: House Do you presently have visiting nurse or other home services: No Alcohol intake: never Patient Tobacco Use Status: Never used Tobacco service: No Meds Allergies Allergy/AdvReac Type Severity Reaction Status Date / Time No Known Allergies Allergy Verified 11/05/23 11:31 Home Medications Medication Instructions Recorded Confirmed Last Taken Type loratadine 10 mg tablet 10 mg PO DAILY 11/05/23 11/05/23 Unknown History Exam Pertinent Lab Results Pertinent Lab Results: Laboratory Tests 08/28/23 09:39 WBC 6.4 Hgb 14.1 Hct 42.9 Plt Count 390 Sodium 138 Potassium 3.9 Chloride 106 Carbon Dioxide 25 BUN 18 H Creatinine 0.65 Narrative Narrative: EKG 08/2023 Vent. Rate : 078 BPM Atrial Rate : 078 BPM P-R Int : 168 ms QRS Dur : 084 ms QT Int : 392 ms P-R-T Axes : 014 006 050 degrees QTc Int : 446 ms Normal sinus rhythm Normal ECG No previous ECGs available Assessment and Plan Assessment Anesthesia Assessment: Chart Reviewed Documented by User: Gonzalo Paiz MD 11/08/23 13:45 [facility] Past Medical History Patient : No Family History Family history of problems with anesthesia: No Surgical History Surgical History (Updated 11/06/23 @ 07:09 by Humza Strange MD, FACS, [facility]) Hx of tubal ligation Hx of rhinoplasty Hx of section History of Problems with Anesthesia: No Social History Social History Household Members: Family Housing: House Do you presently have visiting nurse or other home services: No Alcohol intake: never Patient Tobacco Use Status: Never used Tobacco service: No Meds Allergies Allergy/AdvReac Type Severity Reaction Status Date / Time No Known Allergies Allergy Verified 11/05/23 11:31 Home Medications Medication Instructions Recorded Confirmed Last Taken Type loratadine 10 mg tablet 10 mg PO DAILY 11/05/23 11/05/23 Unknown History Exam Airway Mallampati Class: II TM Dist: >3cm Neck ROM: Full Loose/Missing/Broken Teeth: No Heart: OK Lungs: OK Assessment and Plan Assessment Anesthesia Assessment: Anesthesia Plan Discussed Final Anesthetic Review Family History of Problems with Anesthesia: No History of Problems with Anesthesia: No NPO: Yes ASA Class: III Final Preanesthetic Review: No Changes in Pt Med Stat, Meds/Allgs Chart Reviewed, Consent Obtained/Reviewed and Anes Risks/Benef Reviewed Patient Risk: Intermediate Procedure Risk: Intermediate Anesthetic Plan Anesthetic Plan: GA and Agree w/ Assess. and Plan Disposition: Standard PACU
--- NOTE | 2023-11-04 07:12 | P.OP_ITS ---
Operative Note Operative Note Date of Service: 11/05/23 Narrative: Preop diagnosis: [Obesity, BHANU] Postop diagnosis: [same] Procedure: [Laparoscopic sleeve gastrectomy, gastropexy and intraoperative upper endoscopy] Surgeon: Humza Strange MD, FACS, [facility] Assist: [Shin Wood PA-C] Anesthesia: [GET, Marcaine, 0.5% plain] Estimated blood loss: [3cc] Specimen: [Portion of stomach with fundus] Intraoperative findings: [No evidence of hiatal hernia, no gross liver anomaly, grossly normal stomach] Indications: [The patient presents for f/u SWL; initial weight of 247.2 lb/BMI 37.6 and prior diagnosis of BHANU (non-compliant with CPAP) at her heaviest weight, however on entry into the SWL program following weight loss, retesting did not show BHANU which demonstrated her health benefit with weight loss as well as a more durable weight loss from sleeve gastrectomy. 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 After demonstrating healthy lifestyle choices with resultant weight loss and resolution of her BHANU, the patient had long discussion regarding options including medical management versus laparoscopic sleeve gastrectomy, possible hiatal hernia repair, intraoperative upper endoscopy and possible ventral hernia repair. She wished to proceed with surgical recommendations. The inherent risks of this procedure which include, but are not limited to: Bleeding that could require another operation or blood transfusion; the inherent risks of transfusion reaction infectious disease from blood transfusions; the risk of staple line leaks that could cause sepsis, multi-system organ failure and ; the risk of mesenteric or deep vein thrombosis of the lower extremities that could cause a fatal pulmonary embolism was reviewed; the risk of GERD that could require conversion to gastric bypass was discussed; the risk of recurrent hiatal hernia, especially in the setting of weight regain was reviewed. The risk of weight regain if maladaptive eating and sedentary behavior continue was discussed. The importance of proper diet and increased activity to augment surgical weight loss and the fact that no operation would result in weight loss of poor dietary decisions and sedentary behavior are resumed were discussed at length and apparently understood. The patient was also advised to post operative diet/hydration and activity restrictions and made arrangements with her mother to help care for her toddler aged children. The patient wanted to proceed with the surgical plan is recommended. Procedure: The patient was identified in the preoperative holding area by myself and again in the operating suite 6 by myself and the OR team. Patient was placed supine on the operating table. Safety straps were utilized and a footboard utilized. The patient was induced in general endotracheal anesthesia administered with excellent effect. An appropriate time-out was performed. The patient's abdomen was then widely prepped and draped in the usual manner for surgery using chlorprep. Antibiotics per protocol were administered by Anesthesia. After infiltrating preemptive local in the skin and subcutaneous tissues in the left upper quadrant, a stab incision was made sharply in the left subcostal abdomen and the Veress needle inserted without incident. An appropriate drop test was performed then a pneumoperitoneum of 15 mmHg was obtained using carbon dioxide. Opening pressures were 6 mmHg. Next, a 5 mm 0 degree scope over a 5 mm Optiview trocar was used to access the abdomen via the epigastric incision in the midline. Once the abdomen was entered, the the trocar obturator was removed and the laparoscope was used to confirm there was no injury from the Veress needle nor trocar insertion injury to the bowel or mesentery, then the scope was switched to a 5 mm 45 degree laparoscope. Next, using preemptive local, additional 5 mm trocars were placed under direct laparoscopic vision on the patient's left abdomen, then right and the 5 mm midline trocar upsized to a 12 mm to accommodate the stapler. The patient was then positioned in reverse Trendelenburg and the liver retractor deployed through the right lateral 5 mm trocar and secured. A 40 Montenegrin ViSiGi bougie was inserted by Anesthesia per os and advanced to the stomach to decompress. It was then withdrawn to the GE junction all under direct laparoscopic vision. Dissection was begun along the greater curvature using the 5 mm [place] LigaSure for hemostasis and continued to the left dottie of the diaphragm. Dissection was then carried towards the pylorus to 3-4 cm from the pylorus and retro gastric adhesions lysed. The gastroesophageal fat pad was carefully mobilized taking care to avoid injury to the esophagus and stomach and dissection carried towards the short gastrics taking care to avoid injury to the spleen and splenic artery. The diaphragmatic hiatus was carefully examined for a hernia, and no apparent hernia was appreciated. Next, the 40 Fr ViSiGi bougie was advanced by anesthesia under direct vision and laparoscopic guidance and positioned in the antrum approximately 3 cm from the pylorus using laparoscopic graspers to serve as a guide for a stapled sleeve gastrectomy. Stapling was performed with bMobilized power stapler Endo-TALITA stapler with a purple 45 and 60 loads as needed to keep the sleeve morphology uniform. The bougie served as a guide to maintain the same sleeve caliber to avoid stricture & sleeve distortion. The 10 mm clip store merchandiser was used to apply additional clips to the staple line. Care was taken to be sure that the sleeve laid flat and was without stricture. Once the sleeve was complete, the portion of stomach was placed in the lower abdomen to be sent for removal and permanent section. The staple line, gastrocolic omentum, spleen and short gastric areas were all inspected for hemostasis which was found to be good. The ViSiGi bougie used for a leak test by reducing the reverse Trendelenburg and instilling sterile tc ine. Next, the bougie was withdrawn under laparoscopic vision used to suction the esophagus and hypopharynx and then discarded. After inspecting again for hemostasis, a gastropexy was performed using 2-0 Polysorb suture to secure the sleeve gastrectomy to the gastrocolic omentum with intracorporeal suturing technique. Next, I broke scrub perform an on-table upper endoscopy to assess the sleeve and the esophagus and stomach. The patient was returned to neutral position and the Olympus 160 gastroscope was advanced per os taking care to preserve the endotracheal tube. The esophagus was intubated without incident. Minimal air was insufflated and the scope advanced into the newly formed sleeve. The staple line was inspected for hemostasis and the morphology of the sleeve appeared straight with a uniform diameter. Intraoperatively, there was no evidence of staple line leak seen during laparoscopy as air was insufflated via endoscope. The scope was then used to aspirate the air from the sleeve withdrawn and removed. I then rescrubbed to return to the operative field and again inspected the field for hemostasis. After final assessment for hemostasis, the patient was returned to neutral position, a Thea used to withdraw the resected gastric specimen which was sent for permanent section. The fascia of the 12 mm midline was closed using an 0 Polysorb figure of 8 on a suture passer under direct laparoscopic vision. The abdomen was then deflated and all trocars removed. The suture was then tied and the skin closed with 4-0 Monocryl subcuticular sutures. The abdomen was then washed and dried, benzoin and Steri-Strips applied followed by Tegaderms. The patient tolerated the procedure well was then extubated the recover in stable condition. All sponge needle and instrument counts were correct x2. At the patient's request, I called her mother Gemini at [phone] to apprise her of the operation and perioperative plan. Her questions seemed to be satisfactorily answered.]
--- NOTE | 2023-11-04 07:12 | MHC.SHP ---
Pre-Procedural Eval Section A Date of Service: 11/04/23 The patient is an INPATIENT: Yes The History & Physical has been completed within 30 days and I have reviewed it.: Yes Section B Chief Complaint: Obesity, unspecified Allergies: Allergies Allergy/AdvReac Type Severity Reaction Status Date / Time No Known Allergies Allergy Verified 11/01/23 15:42 Plan I have reviewed the history and physical and performed a pertinent physical examination on my patient. No changes have occurred unless specified. Time Spent With Patient Time: Total time managing care of this patient today ____ minutes.
[2023-11-05] VITALS (11 sets, daily range): BP systolic 108–152; BP diastolic 63–100; PULSE 66–93; RESP 11–18; TEMP 35.8–36.9; O2SAT 94–100; BMI 31.6
--- OUTSIDE RECORDS SUMMARY | 2023-11-05 11:28 | XMS_ITS | Continuity of Care Document ---
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 Name Role Phone Carmel Salguero MD Primary Care Physician Encounter [facility] Date(s): 01/03/22 - 02/02/[facility] [address] [place] [id number] Allergies, Adverse Reactions, Alerts No Known Allergies Immunizations Given and Recorded Vaccine Date Status Refusal Reason SARS-CoV-2 (COVID-19) mRNA BNT-162b2 vac 06/10/21 Recorded Influenza Virus Vaccine (oldterm) 09/07/19 Recorde d tetanus/diphtheria/pertussis, acel(Tdap) 1 05/16/13 Given 1Admin Note: 12/22/2011 Medications acetaminophen-HYDROcodone 325 mg-5 mg oral tablet 1-2 tablet, By Mouth, Every 6 hours, PRN for pain, May partial fill BS [id number], # 12 tablet, 0 Refills, Maintenance, 05/12/21 1:03:00 EDT, Tablet, [id number], Partial fill upon patient request if the prescription is for a schedule II opioid d... Start Date: 05/12/21 Status: Ordered Allergy = 25 mg, By Mouth, 3 times a day, 0 Refills, Maintenance, 03/01/17 10:39:34 Start Date: 03/01/17 Status: Ordered benzonatate 200 mg oral capsule 1 capsule = 200 mg, By Mouth, 3 times a day, PRN as needed for cough, # 40 capsule, 0 Refills, Maintenance, 09/13/21 12:29:00 EDT, Capsule, [id number], 175, cm, 05/12/21 1:24:00 EDT, Height, 114, kg, 05/11/21 23:04:00 EDT, Dry Weight Start Date: 09/13/21 Status: Ordered ferrous sulfate 325 mg oral tablet 1 tablet = 325 mg, By Mouth, 2 times a day, Take 1 daily with food x 1 week, if tolerates then take1 two times/day with food, # 60 tablet, 0 Refills, Maintenance, 03/28/17 13:07:37, Tablet Start Date: 03/28/17 Status: Ordered Mirena 52 mg intrauteral device 1 each = 52 mg, Once, 0 Refills, Maintenance, 03/01/17 11:59:06 Start Date: 03/01/17 Status: Ordered naproxen sodium Start Date: 03/01/17 Status: Ordered oxyCODONE 5 mg oral capsule 1 capsule = 5 mg, By Mouth, Every 6 hours, 0 Refills, Maintenance, 03/01/17 10:40:35 Start Date: 03/01/17 Status: Ordered ProAir HFA 90 mcg/inh inhalation aerosol 2 puffs, Inhalation, Every 6 hours, PRN Wheezing/Shortness of Breath, # 8.5 Gm, 0 Refills, Maintenance, 09/13/21 12:29:00 EDT, [id number], Partial fill upon patient request if the prescription is for a schedule II opioid drug., 2 puffs Inhalat... Start Date: 09/13/21 Status: Ordered SUMAtriptan 100 mg oral tablet See Instructions, TAKE 1 TABLET BY MOUTH ONCE, # 9 tablet, 4 Refills, Soft Stop, [id number], 175, cm, 07/09/19 15:48:00 EDT, Height, 113, kg, 07/09/19 15:48:00 EDT, Dry Weight Start Date: 12/27/20 Status: Ordered Problem List Condition Effective Dates Status Health Status Inform ant Amenorrhea(Confirmed) Active Obstructive sleep apnea(Confirmed) Active Healthcare maintenance(Confirmed) Active COVID-19 virus detected(Confirmed) Active Social History Social History Type Response Smoking Status Former smoker; Other : quit 2012; entered on: 03/01/17 Sex
--- OUTSIDE RECORDS SUMMARY | 2023-11-05 11:28 | XMS_ITS | Continuity of Care Document ---
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 Name Role Phone Carmel Salguero MD Primary Care Physician Encounter [facility] Date(s): 02/23/22 - 02/24/[address] [id number] Discharge Disposition: A-D/C Home Attending Physician: Jorge Holly MD Admitting Physician: Jorge Holly MD Referring Physician: Jorge Holly MD Allergies, Adverse Reactions, Alerts No Known Allergies Immunizations Given and Recorded Vaccine Date Status Refusal Reason SARS-CoV-2 (COVID-19) mRNA BNT-162b2 vac 06/10/21 Recorded Influenza Virus Vaccine (oldterm) 09/07/19 Recorde d tetanus/diphtheria/pertussis, acel(Tdap) 1 05/16/13 Given 1Admin Note: 12/22/2011 Medications acetaminophen-HYDROcodone 325 mg-5 mg oral tablet 1-2 tablet, By Mouth, Every 6 hours, PRN for pain, May partial fill [id number], # 12 tablet, 0 Refills, Maintenance, 05/12/21 [...] 0 Refills, Maintenance, 09/13/21 12:29:00 EDT, Capsule, [facility] #[id number], 175, cm, 05/12/21 1:24:00 EDT, Height, [...] Gm, 0 Refills, Maintenance, 09/13/21 12:29:00 EDT, [facility]pharm[facility] #[id number], Partial fill upon patient request if the prescription is for a schedule II opioid drug., 2 puffs Inhalat... Start Date: 09/13/21 Status: Ordered SUMAtriptan 100 mg oral tablet See Instructions, TAKE 1 TABLET BY MOUTH ONCE, # 9 tablet, 4 Refills, Soft Stop, [id number], 175, cm, 07/09/19 15:48:00 EDT, Height, 113, kg, 07/09/19 15:48:00 EDT, Dry Weight Start Date: 12/27/20 Status: Ordered Problem List Condition Effective Dates Status Health Status Inform ant Amenorrhea(Confirmed) Active Obstructive sleep apnea(Confirmed) Active Healthcare maintenance(Confirmed) Active COVID-19 virus detected(Confirmed) Active Vital Signs Most recent to oldest [Reference Range]: 1 Weight 119.6 kg (02/23/22 10:15 PM) Oxygen Saturation [94-100 %] 97 % (3/31/22 10:28 PM) Pulse Rate [55-90 bpm] 96 bpm *H* (02/23/22 10:28 PM) Blood Pressure [90-138/55-84 mm Hg] 112/ 53mm Hg (02/23/22 10:28 PM) Respiratory Rate [16-30 br/min] 18 br/mi n (02/23/22 10:28 PM) Temperature [96.8-100.4 DegF] 97.6 DegF (02/23/22 10:15 PM) Mode of Delivery (Oxygen) Room air (02/23/22 10:28 PM) Blood pressure sites Arm, left (02/23/22 10:28 PM) Temperature Route Oral (02/23/22 10:15 PM) Dry Weight 119.6 kg (02/23/22 10:15 PM) Weight Obtained Via Standing scale (02/23/22 10:15 PM) Dry Weight Obtained Via Standing scale (02/23/22 10:15 PM) Social History Social History Type Response Smoking Status Former smoker; Other : quit 2012; entered on: 03/01/17 Sex
--- OUTSIDE RECORDS SUMMARY | 2023-11-05 11:28 | XMS_ITS | Continuity of Care Document ---
Author Name Unknown Organization [facility] [employer] ter Address [address] [place] [id number]- Care Team Providers Care Leisure Studies Professor Name Role Phone Carmel Salguero MD Primary Care Physician [place] [facility] [place] Date(s): 06/09/23 - 06/11/[address] [id number] Discharge Disposition: A-D/C Home Attending Physician: Becka Mahajan MD Admitting Physician: Jean Pierre Sears DO Referring Physician: Not on Staff, Referring MD Allergies, Adverse Reactions, Alerts No Known Allergies Immunizations Given and Recorded Vaccine Date Status Refusal Reason influenza virus vaccine, inactivated 09/16/22 Ck rded influenza virus vaccine, inactivated 08/07/18 Ck rded influenza virus vaccine, inactivated 09/18/17 Ck rded influenza virus vaccine, inactivated 09/04/11 Ck rded [id number] 12y+ bivalent booster vax 09/16/22 Recorded SARS-CoV-2 mRNA ([id number]) vax 06/16/22 Recorded SARS-CoV-2 (COVID-19) mRNA BNT-162b2 vac 06/10/21 Recorded SARS-CoV-2 (COVID-19) mRNA BNT-162b2 vac 05/20/21 Recorded Influenza Virus Vaccine (oldterm) 09/07/19 Recorde d tetanus/diphtheria/pertussis, acel(Tdap) 1 05/16/13 Given 1Admin Note: 12/22/2011 Medications amoxicillin 500 mg oral capsule = 500 mg, By Mouth, Every 8 hours, for 3 days, # 10 capsule, 0 Refills, Acute 06/14/23 8:51:00 EDT,06/11/23 8:51:00 EDT, Capsule, [id number], Partial fill upon patient request if the prescription is for a schedule II opioid drug., 175, cm, 07... Start Date: 06/11/23 Stop Date: 06/14/23 Status: Ordered gabapentin 100 mg oral capsule 100 mg, Capsule, By Mouth, 06/11/23 9:00:00 EDT Start Date: 06/11/23 Stop Date: 06/11/23 Status: Completed Knee Support See Instructions, # 1 each, Maintenance, Left knee splint Dx M25.562 M23.50 dx, 01/19/23 10:25:00 EST, Supply, 175, cm, 12/25/22 13:55:00 EST, Height, 116, kg, 08/12/22 18:32:00 EDT, Dry Weight Start Date: 01/19/23 Status: Ordered oxyCODONE 5 mg oral tablet 5 mg, By Mouth, Every 6 hours, for 3 days, # 10 tablet, Refills 0, Tot. Refills 0, Acute 06/14/23 8:37:00 EDT, 06/11/23 8:37:00 EDT, Route to Pharmacy Electronically, [facility] #[id number], Partial fillupon patient request if the prescription is for a s... Start Date: 06/11/23 Stop Date: 06/14/23 Status: Ordered oxyCODONE 5 mg oral tablet 5 mg, Tablet, By Mouth, Hold for: lethargy, acute respiratory distress, 06/11/23 9:00:00 EDT Start Date: 06/11/23 Stop Date: 06/11/23 Status: Completed Splint See Instructions, # 1 each, Maintenance, Left carpal tunnel splint Dx R20.2 DX g56.00, 01/19/23 10:26:00 EST, Supply, 175, cm, 12/25/22 13:55:00 EST, Height, 116, kg, 08/12/22 18:32:00 EDT, Dry Weight Start Date: 01/19/23 Status: Ordered SUMAtriptan 100 mg oral tablet See Instructions, TAKE 1 TABLET BY MOUTH ONCE, # 9 tablet, 4 Refills, Maintenance, 05/24/23 18:58:00 EDT, [facility] STORE [id number], 175, cm, 12/25/22 13:55:00 EST, Height, 116, kg, 08/12/22 18:32:00 EDT, Dry Weight Start Date: 05/24/23 Status: Ordered tiZANidine 2 mg oral tablet 2 mg, By Mouth, 3 times a day, PRN, # 9 tablet, Refills 0, Tot. Refills 0, Maintenance, Spasm, 06/11/23 8:38:00 EDT, Route to Pharmacy Electronically, [facility]/pharmacy #[id number], Partial fill upon patient request if the prescription is for a schedule II opioi... Start Date: 06/11/23 Stop Date: 06/14/23 Status: Ordered Tylenol Extra Strength 500 mg oral tablet 2 tablet = 1,000 mg, By Mouth, 3 times a day, PRN for fever, for 5 days, # 30 tablet, 0 Refills, Acute 06/16/23 8:39:00 EDT, 06/11/23 8:39:00 EDT, Tablet, [facility]/pharmacy #[id number], Partial fill upon patient request if the prescription is for a schedule II o... Start Date: 06/11/23 Stop Date: 06/16/23 Status: Ordered Problem List Condition Confirmation Course Effective Dates Status H ealth Status Informant Abdominal pain Confirmed Active Elevated alkaline phosphatase level Confirmed Active Amenorrhea Confirmed Active Congenital vascular abnormality Confirmed Active Vaccine counseling Confirmed Active Ovarian cyst Confirmed Active Family history of glaucoma in mother Confirmed Active Hemangioma Confirmed Active History of COVID-19 Confirmed Active Liver mass Confirmed Active Polyarthralgia Confirmed Active Nausea Confirmed Active Obese class I Confirmed Active Obstructive sleep apnea Confirmed Active Pelvic pain Confirmed Active Left knee pain Confirmed Active Left hand paresthesia Confirmed Active Healthcare maintenance Confirmed Active Results Orders for Microbiology Reports Name Date Blood Culture 06/09/23 Blood Culture #2 06/09/23 Group A Strep Screen and Culture 06/09/23 Microbiology Reports TEST:Blood Culture, Second Order STATUS:Unauthenticated BODY SITE: SOURCE:Blood COLLECTED DATE/TIME:06/09/23 5:45 AM Blood Culture, Second Order SPECIMEN DESCRIPTION : BLOOD NONE SPECIAL REQUESTS : NONE CULTURE : NO GROWTH AFTER 48 HOURS REPORT STATUS : PRELIMINARY REPORT TEST:Group A Strep Screen and Culture STATUS:Modified/Amended/Corrected BODY SITE: SOURCE:THROAT COLLECTED DATE/TIME:06/09/23 5:44 AM Group A Strep Screen and Culture SPECIMEN DESCRIPTION : THROAT SWAB SPECIAL REQUESTS : NONE DIRECT EXAM : RAPID GROUP A RESULT IS NEGATIVE, REFER TO CULTURE RESULT. CULTURE : NO GROUP A BETA HEMOLYTIC STREPTOCOCCI ISOLATED REPORT STATUS : FINAL 06/11/2023 TEST:Blood Culture STATUS:Unauthenticated BODY SITE: SOURCE:Blood COLLECTED DATE/TIME:06/09/23 5:30 AM Blood Culture SPECIMEN DESCRIPTION : BLOOD NONE SPECIAL REQUESTS : NONE CULTURE : NO GROWTH AFTER 48 HOURS REPORT STATUS : PRELIMINARY REPORT Radiology Reports * Exam Date Time Procedure Performing Provider Status 06/09/23 1:12 AM MRI Lumbar Spine W+W/O Contrast Tatyana Burroughs; Auth (Verified) Notes: (MRI Lumbar Spine W+W/O Contrast) Reason For Exam: SEA ruleout - from [facility];Other: RESULT: MRI Lumbar Spine W+W/O Contrast MRI Lumbar Spine W+W/O Contrast INDICATION: Hx of Present Illness: c o back pain x2wks, tx from [facility] for r o sea, needs MRI; Reason: Other:; SEA ruleout - from [facility]; Clinical Question(s): Other:; Order Comment: Please see Reference Text for complete list of contraindications Other: TECHNIQUE: MRI of the lumbar spine was performed with and without intravenous contrast utilizing sagittal T1, sagittal T2, sagittal STIR, axial T1, and fat- saturated axial T2-weighted sequences, and post-contrast sagittal T1 and fat- saturated axial T1-weighted sequences. 20 mL of Clariscan was administered intravenously. COMPARISON: CT abdomen and pelvis 08/12/2022. FINDINGS: NUMBERING: The study assumes 5 [id number] lumbar type vertebral bodies. ALIGNMENT, VERTEBRAE, MARROW, AND DISCS: Alignment is normal. Vertebral body heights are preserved.There are minimal Modic type I signal changes at T11-T12. Otherwise, no significant marrow signal abnormality. Subtle disc desiccation with a posterior annular fissure towards the left of midline at L5-S1. Otherwise, intervertebral discs are maintained. CONUS: The conus is normal in signal and contour, with normal level of termination at L1. There is no abnormal enhancement. PARASPINAL TISSUES: The paraspinal soft tissues are unremarkable. Numerous collateral venous structures are partially imaged in the abdomen and upper pelvis, better assessed on previous CT. Partiallyimaged adnexal cystic structures seen on previous CT and ultrasound from 08/12/2022. 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 L1-L2: Minimal facet spurring and ligamentum flavum thickening. No significant canal stenosis or neural foraminal narrowing. L2-L3: Facet spurring and ligamentum flavum thickening. No significant canal stenosis or neural foraminal narrowing. L3-L4: Minimal disc bulge with facet spurring and ligamentum flavum thickening. Minimal spinal canal narrowing. No significant neural foraminal narrowing. L4-L5: Minimal disc bulge with ligamentum flavum thickening and facet spurring. Minimal spinal canal narrowing. Minimal bilateral neural foraminal narrowing. L5-S1: Minimal disc bulge and facet spurring. Mild left and minimal right neural foraminal narrowing. No significant canal stenosis. IMPRESSION: No evidence of discitis/osteomyelitis or epidural abscess. Minimal degenerative changes of the lumbar spine as described above. A similar preliminary report was provided by Franky. WSN: [id number] Ordering Physician: Nathaly Laird Dictated By: Lata Cortés MD Dictated Date/Time: 06/09/23 9:12 am Reviewed By: Lata Cortés MD Signed By: Lata Cortés MD Signed Date/Time: 06/09/23 9:12 am Transcribed By: MANNY Transcribed Date/Time: 06/09/23 9:06 am Vital Signs Most recent to oldest [Reference Range]: 1 2 3 Oxygen Saturation [94-100 %] 99 % (06/11/23 7:19 AM) 99 % (06/11/23 5:00 AM) 98 % (06/10/23 11: PM) Pulse Rate [55-90 bpm] 70 bpm (06/11/23 7: AM) 84 bpm (06/11/23 5:00 AM) 84 bpm (06/10/23 11: PM) Blood Pressure [90-138/55-84 mm Hg] 118/76mm Hg (06/11/23 7: AM) 111/65mm Hg (06/11/23 5:00 AM) 122/59mm Hg (06/10/23 11: PM) Respiratory Rate [16-30 br/min] 18 br/min (06/11/23 8:37 AM) 18 br/min (06/11/23 8:37 AM) 18 br/min (06/11/23 8:30 AM) Temperature [96.8-100.4 DegF] 98.0 DegF (06/11/23 7:19 AM) 97.6 DegF (06/11/23 5:00 AM) 97.7 DegF (06/10/23 11:26 PM) Mode of Delivery (Oxygen) Room air (06/11/23 7:19 AM) Room air (06/11/23 5:00 AM) Room air (06/10/23 11:26 PM) Blood pressure sites Arm, left (06/11/23 7:19 AM) Arm, left (06/11/23 5:00 AM) Arm, left (06/10/23 11:26 PM) Temperature Route Oral (06/11/23 7:19 AM) Oral (06/11/23 5:00 AM) Oral (06/10/23 11:26 PM) Social History Social History Type Response Smoking Status Former smoker; Other : quit 2012; entered on: 03/01/17 Sex Admission evaluation note * Fahad uLu MD: PERFORM Event Display: Admission Note Authored Date: [id number] Patient: ??JULIETA TURNER ? Age:??32 Years?Sex:??Female?:??1990?? Chief Complaint/Reason for Consultation cc back pain x2wks, seen at [place] [facility] [place] mri. 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 It was not associated with trauma.?? Denies any fevers.?? Denies any numbness in the groin area.?? Denies any bowel or bladder incontinence.?? Denies any chest pain or shortness of breath.?? Does have sore throat and was diagnosed with strep throat at an urgent care and was prescribed amoxicillin and got 1 dose of amoxicillin prior to presentation to the ER.?? Denies any urinary symptoms otherwise.?? Does take as needed sumatriptan for migraine.?? 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 Denies any dysuria or hematuria.?? Patient has had mildchronic back pain but this is significantly worse.?? During my interview rated her pain at 3/10, atworst before receiving pain medication her pain was 9/10.?? She is alert awake and oriented x4.?? Wants to be full code.?? Patient was initially seen at [place] emergency room and subsequently transferred to [facility] emergency room for urgent MRI. ?? Noted to be afebrile, Tmax 99.1.?? Received a dose of Zosyn at [facility].?? Heart rate initially on arrival was 134, most recently heart rate of 83 at rest during my interview.?? Movement makes her pain worse and heart rate increases.?? Overall no evidence of tachypnea, maintaining saturation on room air.?? On review of labs???noted to have white count of 18.4, hemoglobin 14.1, platelets 335, 83.3% neutrophils, INR 1.0, sodium 137, potassium 3.1, creatinine 0.7, alk phos 129, LFTs unremarkable, CRP 9.3, beta-hCG negative, urine drug screen unremarkable, patient denies any history of drug use.?? Quit smoking at age of 20, drinks alcohol very rarely, no signs of infection on UA.?? MRIwas obtained in the ER with and without contrast.?? Awaiting final read.?? Based on virtual radiology read minimal to mild lumbar spondylosis, multiple chronic findings but no acute infection, arachnoid cyst not excluded per radiology read. Review of Systems Positive for??acute lumbar back pain??and??sore throat??without any fever.?? Denies any chest pain or difficulty breathing.?? Denies any dysuria. ??Rest of the review of system is negative and per HPI Objective ? Vital Signs?? Temperature: 98.2 DegF (06/09/23 05:06:00) Temperature Route: Oral (06/09/23 05:06:00) Pulse Rate:??116 bpm??High (06/09/23 05:06:00) Respiratory Rate: 20 br/min (06/09/23 05:41:00) Systolic Blood Pressure: 138 mm Hg (06/09/23 05:06:00) Diastolic Blood Pressure: 79 mm Hg (06/09/23 05:06:00) Blood pressure sites: Arm, right (06/09/23 05:06:00) Mean Arterial Pressure: 99 mm Hg (06/09/23 05:06:00) Pulse Pressure: 59 mm Hg (06/09/23 05:06:00) Oxygen Saturation: 94 % (06/09/23 05:06:00) Mode of Delivery (Oxygen): Room air (06/09/23 05:06:00) Early Warning Score: 4 (06/09/23 05:42:39) ? Pain Scores 1 - 10 Pain Scale Score: 5 (22:28) ? Intake/Output? No Data Available ? Physical Exam ?? General appearance- alert, cooperative, no distress, appears stated age, oriented to time, placeand person, Head- Normocephalic, without obvious abnormality, atraumatic Eyes-conjunctivae/corneas clear. PERRL, EOM's intact. Nose- Nares normal. Septum midline. Mucosa normal. No drainage or sinus tenderness. Throat-Lips, mucosa, and tongue normal. Neck- supple, symmetrical, trachea midline, no adenopathy, thyroid: not enlarged, symmetric, no tenderness/mass/nodules, no carotid bruit and no JVD Back- symmetric, no curvature. ??No fluctuance or swelling in the lumbar area. ??Mild tenderness topalpation along midline, paraspinal??sensitivity according to patient. Lungs-??clear to auscultation bilaterally Chest wall- no tenderness, no skin rash or lesions or bruising, no crepitance Heart- regular rate and rhythm, S1, S2 normal, no click, rub or gallop Abdomen-??soft, non-tender. Bowel sounds normal. No masses,?? No organomegaly Extremities- extremities normal, atraumatic, no cyanosis or edema, warm and well perfused. Pulses- 2+ and symmetric on dorsal pedal pulses, posterior tibial pulses, radial pulses Skin- Skin color, texture, turgor normal. Neurologic- Normal, nonfocal, no focal weakness Assessment/Plan Diagnoses Intractable back pain ??(M54.9) Strep throat ??(J02.0) ?? Intractable back pain We will use Dilaudid sparingly Adding??gabapentin 100 mg 3 times daily, Zanaflex 2 mg 3 times daily Await final MRI read ?? Tonsillopharyngitis Reports that??strep test was positive at urgent care. We will repeat??strep??test here Switching antibiotics to amoxicillin 500 mg every 8 hours Blood cultures and lactate ordered ?? Morbid obesity Outpatient follow-up ?? Migraine Currently not an active issue We will consider ordering sumatriptan??as needed??if she has headache while inpatient ?? DVT prophylaxis???heparin subcu ?? CODE STATUS???full code ?? Diet???regular ?? Fahad Luu MD [facility] Medicine Date-June 09, 2023. ??Patient seen at 5 AM ?? IMPORTANT: This document was created by voice recognition software. A conscious effort has been made to improve accuracy of the geometrician. Any obvious errors or omissions should be clarified with the authorof this document. ? Histories Allergies Allergies ?(Active and Proposed Allergies Only) NKA? (Severity: Unknown severity, Onset: Unknown) ? Past Medical History/Problem List Active Problems??(18) Abdominal pain Amenorrhea Congenital vascular abnormality Elevated alkaline phosphatase level Family history of glaucoma in mother Healthcare maintenance Hemangioma History of COVID-19 Left hand paresthesia Left knee pain Liver mass Nausea Obese class I Obstructive sleep apnea Ovarian cyst Pelvic pain Polyarthralgia Vaccine counseling ? Past Surgical History delivery only;: 05/07/22 Bunionectomy Nose ? Social History Alcohol Details:??Use: Never. Employment/School Details:??Status: Unemployed. Exercise Details:??Self assessment: Poor condition. Home/Environment Details:??Living situation: Home/Independent. ??Lives with: Children. Nutrition/Health Details:??Diet: Regular. Sexual Details:??Sexually involved in last 6 months: No. Substance Abuse Details:??Use: Never. Tobacco Details:??Former smoker, Other: quit 2012. Electronic Cigarette/Vaping Details:??Electronic Cigarette Use: Never. ? Psychosocial History ? Family History Mother: Glaucoma ? Travel History Travel Outside [facility]: No ?? Medications Home Medications Diclofenac Topical (Voltaren 1% topical gel)?2?gram?Topically?3 times a day Durable Medical Equipment (Knee Support)?See Instructions?Left knee splint Dx M25.562M23.50 dx Durable Medical Equipment (Splint)?See Instructions?Left carpal tunnel splint Dx R20.2DX g56.00 Multivitamin, ( Multivitamins)?By Mouth?Daily Sumatriptan (SUMAtriptan 100 mg oral tablet)?See Instructions?TAKE 1 TABLET BY MOUTH ONCE ? Results Recent Labs BLOOD COUNT & DIFF WBC 18.4 k/mm3 (High)?? 06/08/2023 19:32 RBC 4.65 m/mm3 ()?? 06/08/2023 19:32 Hgb 14.1 Gm/dL ()?? 06/08/2023 19:32 Hct 41.0 % ()?? 06/08/2023 19:32 MCV 88.2 femtoliters ()?? 06/08/2023 19:32 MCH 30.3 pg ()?? 06/08/2023 19:32 MCHC 34.4 g/dL ()?? 06/08/2023 19:32 Platelet Count 335 k/mm3 ()?? 06/08/2023 19:32 RDW-SD 40.7 femtoliters ()?? 06/08/2023 19:32 MPV 9.5 femtoliters ()?? 06/08/2023 19:32 Nucleated RBC (Automated) 0.0 #/100 WBC'S ()?? 06/08/2023 19:32 Abs. NRBC 0.0 k/mm3 ()?? 06/08/2023 19:32 Abs. Neut 15.4 k/mm3 (High)?? 06/08/2023 19:32 Abs. Lymph 1.8 k/mm3 ()?? 06/08/2023 19:32 Abs. [place] 1.2 k/mm3 (High)?? 06/08/2023 19:32 Abs. Eo 0.0 k/mm3 ()?? 06/08/2023 19:32 Abs. Baso 0.0 k/mm3 ()?? 06/08/2023 19:32 Neut % 83.3 % (High)?? 06/08/2023 19:32 Lymph % 9.8 % (Low)?? 06/08/2023 19:32 [place] % 6.2 % ()?? 06/08/2023 19:32 Eos % 0.1 % ()?? 06/08/2023 19:32 Baso % 0.2 % ()?? 06/08/2023 19:32 Imm Gran 0.4 % ()?? 06/08/2023 19:32 Abs. Imm Gran 0.1 k/mm3 ()?? 06/08/2023 19:32 ?? CHEM GENERAL Sodium 137 mmol/L ()?? 06/08/2023 19:32 Potassium 3.7 mmol/L ()?? 06/08/2023 19:32 Chloride 102 mmol/L ()?? 06/08/2023 19:32 Bicarbonate Level 23 mmol/L ()?? 06/08/2023 19:32 Anion Gap 12 ()?? 06/08/2023 19:32 Glucose Level 94 mg/dL ()?? 06/08/2023 19:32 BUN 16 mg/dL ()?? 06/08/2023 19:32 Creatinine-Blood 0.7 mg/dL ()?? 06/08/2023 19:32 Estimated GFR Creatinine 116 ML/MIN/1.73 M2 ()?? 06/08/2023 19:32 Calcium 9.2 mg/dL ()?? 06/08/2023 19:32 Protein, Total 8.1 Gm/dL ()?? 06/08/2023 19:32 Albumin 4.2 Gm/dL ()?? 06/08/2023 19:32 AG Ratio 1.1 ()?? 06/08/2023 19:32 Alkaline Phosphatase 129 units/L (High)?? 06/08/2023 19:32 AST (SGOT) 13 units/L ()?? 06/08/2023 19:32 ALT (SGPT) <5 units/L ()?? 06/08/2023 19:32 Bilirubin, Total 0.4 mg/dL ()?? 06/08/2023 19:32 Lactate 0.7 mmol/L ()?? 06/08/2023 19:32 C-Reactive Protein 9.3 mg/dL (High)?? 06/08/2023 19:32 ?? COAG INR 1.0 ()?? 06/08/2023 19:32 Protime (PT) 10.9 seconds ()?? 06/08/2023 19:32 APTT 31.8 seconds ()?? 06/08/2023 19:32 ?? ENDOCRINE/TUMOR MARKER Beta HCG-serum, Qual NEGATIVE ()?? 06/08/2023 19:32 ?? TOXICOLOGY/TDM Barbiturate Screen, Urine NONE DETECTED ()?? 06/08/2023 20:45 Cannabinoid Screen, Urine NONE DETECTED ()?? 06/08/2023 20:45 Cocaine Metabolite Screen, Urine NONE DETECTED ()?? 06/08/2023 20:45 Benzodiazepine Screen, Urine NONE DETECTED ()?? 06/08/2023 20:45 Amphetamine Screen, Urine NONE DETECTED ()?? 06/08/2023 20:45 Opiate Screen, Urine NONE DETECTED ()?? 06/08/2023 20:45 ?? UA/URINALYSIS Appear/Color, Urine YELLOW ()?? 06/08/2023 20:45 Clarity CLEAR ()?? 06/08/2023 20:45 Specific Lewis, Urine 1.025 ()?? 06/08/2023 20:45 pH, Urine 6.0 ()?? 06/08/2023 20:45 Albumin, Urine 1+ (Abnormal)?? 06/08/2023 20:45 Glucose, Urine NEGATIVE ()?? 06/08/2023 20:45 Ketones, Urine 2+ (Abnormal)?? 06/08/2023 20:45 Bilirubin, Urine NEGATIVE ()?? 06/08/2023 20:45 Hemoglobin, Urine TRACE (Abnormal)?? 06/08/2023 20:45 Nitrite, Urine NEGATIVE ()?? 06/08/2023 20:45 Leukocyte, Urine NEGATIVE ()?? 06/08/2023 20:45 Urobilinogen NORMAL mg/dL ()?? 06/08/2023 20:45 WBC's, Urine 2 /HPF ()?? 06/08/2023 20:45 RBC's, Urine 2 /HPF ()?? 06/08/2023 20:45 Bacteria SLIGHT HPF (Abnormal)?? 06/08/2023 20:45 Squamous Epith 5 /HPF ()?? 06/08/2023 20:45 Mucus SLIGHT /LPF ()?? 06/08/2023 20:45 Hold Urine Culture Testing available 48 hours from time of collection. ()?? 06/08/2023 20:45 ?? URINE OTHER Est Creatinine Clearance 117.92 mL/min ()?? 06/08/2023 20:12 ?? VIROLOGY COVID-19 by RT-PCR NEGATIVE ()?? 06/08/2023 20:17 ? Abnormal Labs No lab data available. ? CBC, CBC w/Diff?? No qualifying data available. ?? BMP, Mg, and Phos?? No qualifying data available. ?? Coagulation Profile?? No qualifying data available. ?? LFT?? No qualifying data available. ?? Urinalysis?? No qualifying data available. ?? Microbiology ?? COVID-19 (2019 Novel Coronavirus) PCR?? Collected?? Source: Nasal Body Site: Nose Collected Dt/Tm: 06/09/2023 01:20 Last Updated Dt/Tm: 06/09/2023 01:20 Group A Strep Screen and Culture?? Collected?? Source: Throat Swab Body Site: ?? Collected Dt/Tm: 06/09/2023 05:35 Last Updated Dt/Tm: 06/09/2023 05:35 ? Blood Gases?? No qualifying data available. ?? Uric/LDH?? No qualifying data available. ?? Cardiology * Event Display: Cardiac Rhythm Strips Authored Date: Hospital Progress note * Nuris CHO, Alonso: PERFORM Event Display: Progress Note Hospital Authored Date: [id number] Patient: ??JULIETA TURNER ? Age:??32 Years?Sex:??Female?:??1990?? Subjective patient seen and examined at bedside Patient denies any chest pain nausea vomiting abdominal pain Patient complains of dizziness on and off while she walked with PT Orthostatic vitals negative Patient complains of back pain, radiating to her inner??thigh Denies lifting any heavy weights Still requiring IV pain medications MRI lumbar spine??negative for any??acute findings Review of Systems A full review of systems was completed and is otherwise negative except as mentioned in history of present illness. Objective Vital Signs?? Temperature: 97.9 DegF (06/10/23 11:27:00) Temperature Route: Oral (06/10/23 11:27:00) Pulse Rate: 69 bpm (06/10/23 11:27:00) Pulse Rate, Lyin bpm (06/10/23 13:51:00) Systolic Blood Pressure, Lyin mm Hg (06/10/23 13:51:00) Diastolic Blood Pressure, Lyin mm Hg (06/10/23 13:51:00) Pulse Rate, Sittin bpm (06/10/23 13:51:00) Systolic Blood Pressure, Sittin mm Hg (06/10/23 13:51:00) Diastolic Blood Pressure, Sittin mm Hg (06/10/23 13:51:00) Pulse Rate, Standin bpm (06/10/23 13:51:00) Systolic Blood Pressure, Standin mm Hg (06/10/23 13:51:00) Diastolic Blood Pressure, Standin mm Hg (06/10/23 13:51:00) Respiratory Rate: 20 br/min (06/10/23 13:24:00) Systolic Blood Pressure: 113 mm Hg (06/10/23 11:27:00) Diastolic Blood Pressure: 56 mm Hg (06/10/23 11:27:00) Blood pressure sites: Arm, left (06/10/23 11:27:00) Mean Arterial Pressure: 75 mm Hg (06/10/23 11:27:00) Pulse Pressure: 57 mm Hg (06/10/23 11:27:00) Oxygen Saturation: 99 % (06/10/23 11:27:00) Mode of Delivery (Oxygen): Room air (06/10/23 11:27:00) Early Warning Score: 2 (06/10/23 14:23:31) ? Intake/Output? No Data Available ? Physical Exam Constitutional: Alert, in no acute distress. Head EENT: Extraocular muscle movement intact.??Moist mucous membranes.?? Respiratory: Clear to auscultation. No wheezing or crackles. No use of accessory muscles. Cardiovascular: S1S2 regular. No murmurs, rubs or gallops. Gastrointestinal: Abdomen soft, non-tender, non-distended. Normal bowel sounds. Extremities: No lower extremity pitting??edema. No cyanosis or clubbing. Neurologic: AAOx3, Speech normal. No focal neurological deficits. Psychiatric: Normal mood and affect _ Home Medications Durable Medical Equipment (Knee Support)?See Instructions?Left knee splint Dx M25.562M23.50 dx Durable Medical Equipment (Splint)?See Instructions?Left carpal tunnel splint Dx R20.2DX g56.00 Sumatriptan (SUMAtriptan 100 mg oral tablet)?See Instructions?TAKE 1 TABLET BY MOUTH ONCE ? Inpatient Medications Medications (19) Active SCHEDULED: (9) Acetaminophen 325 mg Tablet (Tylenol 325 mg oral tablet) ??975 mg, By Mouth, 3 times a day Amoxicillin 250 mg Capsule (Amoxicillin Capsule) ??500 mg, By Mouth, Every 8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 excellent experience for our patients and their families. PLEASE ENSURE YOU FOLLOW-UP PER THE INSTRUCTIONS BELOW! ?? YOUR OPINION IS IMPORTANT TO US! Please complete the survey you may receive by mail or email. Your feedback will be used to make improvements to the healthcare experiences of our patients and their families. Surveys are administered by [employer], [employer]. ?? If further treatment with your primary care physician or another doctor is recommended, it is important for you to keep the appointment. Call your primary care physician or return to the Emergency Department immediately if your condition worsens, fails to improve, or new symptoms develop. If you need to find a doctor, you can call [facility] for a referral at [phone] or toll free at [phone]) or log in to [email or web address] [employer] [facility] [email or web address].. ?? You can view and manage your care through the patient portal or by using a health care [place] of your choosing. [employer] is a website that allows you to securely view your medical information including your hospital discharge summary, office visit summaries, medications and follow-up visits. You can also request appointments, renew medications, and request access to your medical information using a health care [place] of your choosing, or just ask a question. You can enroll at [email or web address] or register during your next office visit. You have been discharged from [facility], Patient Care Unit: D3B. If you have any questions regarding these instructions after you leave, please call us and we will be happy to assist you. [facility] Your Care Team Attending Physician Keyshawn CHO, Becka Consulting Providers Keyshawn CHO, Becka Discharging Providers Becka Mahajan MD Reason for Admission cc back pain x2wks, [place] [facility] [facility] [place]. 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 You may have had other tests and procedures not included in this list. Please discuss all test results with your provider. BUN Calcium Level CBC CBC w/ Differential COVID-19 (2019 Novel Coronavirus) PCR Creatinine CRP Electrolytes Glucose Level HOLD GEL TUBE Lactate Level MRI Lumbar Spine W+W/O Contrast Primary Care Provider Carmel Salguero MD Advance Directive Health Care Proxy on File Yes - Health Care Proxy Discharge Vitals Temperature: 98 DegF Pulse Rate: 70 bpm Respiratory Rate: 18 br/min Respiratory Rate: 18 br/min Systolic Blood Pressure: 118 mm Hg Diastolic Blood Pressure: 76 mm Hg Oxygen Saturation: 99 % Studies Pending All tests and labs ordered during this hospital stay have been completed unless listed below. Please discuss all pending results with your provider listed above in these instructions. ?? Blood Culture Blood Culture #2 What to do next Instructions From Your Doctor Discharge Orders You Need to Schedule the Following Appointments Follow Up with??Carmel Salguero MD When:??Within 1 to 2 weeks Discharge Medications JULIETA TURNER :1990 Visit Date:06/09/2023 Medications: Please continue your medications until treatment is completed or stopped by your provider. Medications not listed below should be discontinued. Discuss any questions related to medications with your provider. What How Much When Instructions Next Dose New Acetaminophen (Tylenol Extra Strength 500 mg oral tablet) 2 tab(s) Oral 3 times a day as needed for for fever Duration: 5 Days Pickup at [facility]/pharmacy #1234 06/11 11:30 New Amoxicillin (amoxicillin 500 mg oral capsule) 500 Milligram Oral Every 8 hours Duration: 3 Days Pickup at [facility]/pharmacy #1234 06/11 4:30 New Oxycodone (oxyCODONE 5 mg oral tablet) 5 Milligram Oral Every 6 hours Duration: 3 Days Pickup at [facility]/pharmacy #1234 06/11 2:30 New Tizanidine (tiZANidine 2 mg oral tablet) 2 Milligram Oral 3 times a day as needed for Spasm Duration: 3 Days Pickup at [facility]/pharmacy #1234 3 times a day as needed Unchanged Durable Medical Equipment (Knee Support) See instructions Left knee splint Dx M25.562 M23.50 dx ?? Unchanged Durable Medical Equipment (Splint) See instructions Left carpal tunnel splint Dx R20.2 DX g56.00 ?? Unchanged Sumatriptan (SUMAtriptan 100 mg oral tablet) See instructions TAKE 1 TABLET BY MOUTH ONCE ?? as prescribed Pharmacy Information [id number]: [address], [place] [id number] [phone] Test Results Below is a partial list of the most recent Laboratory test results done prior to this discharge. You may have had other tests and procedures not included in this list. Please discuss all test resultswith your provider. BUN (06/11/2023) ???BUN - 24 mg/dL Calcium Level (06/11/2023) ???Calcium - 8.8 mg/dL CBC (06/10/2023) ???WBC - 9.3 k/mm3???RBC - 4.29 m/mm3???Hgb - 12.7 Gm/dL???Hct - 39.0 %???MCV - 90.9 femtoliters???MCH - 29.6 pg???MCHC - 32.6 g/dL???Platelet Count - 239 k/mm3???RDW-SD - 42.5 femtoliters???MPV - 10.0 femtoliters???Nucleated RBC (Automated) - 0.0 #/100 WBC'S???Abs. NRBC - 0.0 k/mm3 CBC w/ Differential (06/11/2023) ???WBC - 8.0 k/mm3???RBC - 4.21 m/mm3???Hgb - 12.3 Gm/dL???Hct - 38.3 %???MCV - 91.0 femtoliters???MCH - 29.2 pg???MCHC - 32.1 g/dL???Platelet Count - 356 k/mm3???RDW-SD - 41.0 femtoliters???MPV - 9.6 femtoliters???Nucleated RBC (Automated) - 0.0 #/100 WBC'S???Abs. NRBC - 0.0 k/mm3???Abs. Neut - 3.5 k/mm3???Abs. Lymph - 3.5 k/mm3???Abs. [place] - 0.7 k/mm3???Abs. Eo - 0.2 k/mm3???Abs. Baso - 0.0 k/mm3???Neut % - 44.4 %???Lymph % - 43.3 %???[place] % - 8.8 %???Eos % - 2.6 %???Baso % - 0.5 %???Imm Gran- 0.4 %???Abs. Imm Gran - 0.0 k/mm3 COVID-19 (2019 Novel Coronavirus) PCR (06/09/2023) ???COVID-19 PCR Specimen Source - NASAL???COVID-19 PCR Result - NEGATIVE Creatinine (06/11/2023) ???Creatinine-Blood - 0.7 mg/dL???Estimated GFR Creatinine - 114 ML/MIN/1.73 M2 CRP (06/10/2023) ???C-Reactive Protein - 8.5 mg/dL Electrolytes (06/11/2023) ???Sodium - 136 mmol/L???Potassium - 4.5 mmol/L???Chloride - 104 mmol/L???Bicarbonate Level - 22 mmol/L???Anion Gap - 10 Glucose Level (06/11/2023) ???Glucose Level - 94 mg/dL HOLD GEL TUBE (06/09/2023) ???Hold Gel Top - SPECIMEN DISCARDED AFTER 1 WEEK Lactate Level (06/09/2023) ???Lactate - 0.6 mmol/L Allergies (NKA means No Known Allergies) NKA Problems Active Problems??(18) Abdominal pain?? Amenorrhea?? Congenital vascular abnormality?? Elevated alkaline phosphatase level?? Family history of glaucoma in mother?? Healthcare maintenance?? Hemangioma?? History of COVID-19?? Left hand paresthesia?? Left knee pain?? Liver mass?? Nausea?? Obese class I?? Obstructive sleep apnea?? Ovarian cyst?? Pelvic pain?? Polyarthralgia?? Vaccine counseling?? Education Materials Below is the list of Educational Leaflet Providered with your Discharge Instructions. Valuables and Belongings I fully understand and agree that [facility] accepts no responsibility for all my personal property including clothing, toilet articles, radios, jewelry, dentures, hearing aids, rings, money, or any other property that is in my possession or is brought to me after admission. I understand certain valuables may be placed in a hospital safe for a short period of time. I understand that the hospital is not liable for loss or damage due to accident, fire, or other natural occurrence while said property is in the safe. I accept full responsibility for any personal property that I keep with me, and will not hold the hospital responsible in case of loss or disappearance. I acknowledge that i have been encouraged to send valuables and belongings home. ?? Review of Valuable and Belonging List: With patient Possessions released to: No ??Medical ??Advices Date for Pt to Sign Valuables/Belongings: 06/09/23 00:14:00 ?? Other Discharge Information ? Pulmonary Rehab Status?? Pulmonary Rehab Discharge Status?? Respiratory Rate: 18 br/min Respiratory Rate: 18 br/min ? Common Emergency Awareness Tips IS IT A STROKE? Act FAST and Check for these signs: FACE Does the face look uneven? ARM Does one arm drift down? SPEECH Does their speech sound strange? TIME Call at any sign of stroke ?? Heart Attack Signs Chest discomfort: Most heart attacks involve discomfort in the center of the chest and lasts more than a few minutes, or goes away and comes back. It can feel like uncomfortable pressure, squeezing, fullness or pain. Discomfort in upper body: Symptoms can include pain or discomfort in one or both arms, back, neck, jaw or stomach. Shortness of breath: With or without discomfort. Other signs: Breaking out in a cold sweat, nausea, or lightheaded. Remember, MINUTES DO MATTER. If you experience any of these heart attack warning signs, call to get immediate medical attention! ?? Smoking can increase your chances of developing chronic health problems and can cause harmful effects to other family members in your house. If you smoke, you are strongly encouraged to quit. Please call [employer] at [phone] or [phone] ([phone]) or log in to [email or web address] for referrals to smoking cessation programs. ?? 411 Suicide & Crisis Lifeline is available 18/06 if you or someone you know needs to find a reason to keep living. By calling 988 you'll be connected to a skilled, trained counselor at a crisis center in your area. INPATIENT DISCHARGE INSTRUCTIONS SIGNATURE PAGE JULIETA TURNER Location:[facility] Registration Date and Time:06/09/2023 01:18 EDT Primary Care Physician: Carmel Salguero MD, Attending Physician: Becka Mahajan MD, I TURNERJULIETA, have received the above patient education materials/instructions and have verbalized understanding. If ambulance or transport services are being used I further acknowledge being given a choice of service. ?? If you need to contact me, please call me at this number: . 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 [address] Oxycodone Oral Tablet Brands: Roxicodone Uses For pain. ?? Instructions This medicine may be taken with or without food. Swallow with a full glass (8 oz) of water unless your doctor gives you different instructions. Store at room temperature away from heat, light, and moisture. Do not keep in the bathroom. Please ask your doctor, nurse, or pharmacist how to discard unused medicines safely. To reduce constipation, eat high fiber foods, drink plenty of water and exercise. Avoid grapefruit juice while on this medicine. Drug interactions can change how medicines work or increase risk for side effects. Tell your healthcare providers about all medicines taken. Include prescription and xdgw-chs-tfrgbik medicines, vitamins, and herbal medicines. Speak with your doctor or pharmacist before starting or stopping any medicine. Tell your doctor if symptoms do not get better or if they get worse. ?? Cautions This medicine has an opioid. Opioids help many people but may cause addiction, especially if used for a long time. The addiction risk is higher if you have a substance use disorder (overuse of or addiction to drugs or alcohol). Ask your doctor about the benefits and risks. Ask your doctor or pharmacist if you should have naloxone on hand to treat opioid overdose. Teach your family or household members about the signs of an opioid overdose and how to treat it. If you stop this medicine suddenly after using it for a long time, you may have withdrawal. Your doctor may slowly lower your dose before stopping it. Tell your doctor right away if you have symptoms, such as unusual sweating, watering eyes, runny nose, chills, diarrhea, yawning, muscle aches, restlessness, anxiety, trouble sleeping, or thoughts of suicide. Tell your doctor and pharmacist if you ever had an allergic reaction to a medicine. Do not use the medication any more than instructed. This medicine may cause dizziness or fainting, especially after exercising or in hot weather. Be very careful when standing or sitting up quickly. If possible, avoid using with alcohol, marijuana, or other medicines that can cause dizziness or drowsiness. These include allergy/cold products, muscle relaxers, sleep aids, and pain relievers. Your ability to stay alert or to react quickly may be impaired by this medicine. Do not drive or operate machinery until you know how this medicine will affect you. This medicine passes into breast milk. Ask your doctor before . This medicine can hurt a new baby in the womb. If you become while on this medicine, tell your doctor immediately. Your doctor may switch you to a different medicine. This medicine should be used with caution in patients with breathing difficulties. Call your doctor right away if you notice slow or shallow breathing. Do not share this medicine with anyone who has not been prescribed this medicine. Some patients have serious side effects from this medicine. Ask your pharmacist to show you the information from the Food and Drug Administration (FDA) and discuss it with you. ?? Side Effects The following is a list of some common side effects from this medicine. Please speak with your doctor about what you should do if you experience these or other side effects. ??? decreased appetite ??? constipation ??? dizziness or drowsiness ??? lightheadedness ??? nausea and vomiting If you have any of the following side effects, you may be getting too much medicine. Please contactyour doctor to let them know about these side effects. ??? confusion ??? fainting ??? unusual or unexplained tiredness or weakness ??? difficulty or discomfort urinating Call your doctor or get medical help right away if you notice any of these more serious side effects: ??? agitated feeling or trouble sleeping ??? decreased awareness or responsiveness ??? breathing interruption during sleep ??? shallow, irregular breathing ??? hallucinations (unusual thoughts, seeing or hearing things that are not real) ??? seizures ??? severe stomach or bowel pain ??? weight loss A few people may have an allergic reaction to this medicine. Symptoms can include difficulty breathing, skin rash, itching, swelling, or severe dizziness. If you notice any of these symptoms, seek medical help quickly. ?? Extra Please speak with your doctor, nurse, or pharmacist if you have any questions about this medicine. ?? [email or web address] IMPORTANT NOTE: This document tells you briefly how to take your medicine, but it does not tell youall there is to know about it. Your doctor or pharmacist may give you other documents about your medicine. Please talk to them if you have any questions. Always follow their advice. There is a more complete description of this medicine available in [place]. Scan this code on your smartphone or tablet or use the web address below. You can also ask your pharmacist for a printout. If you have any questions, please ask your pharmacist. The display and use of this drug information is subject to Terms of Use. Copyright(c) 2022 [employer]. ?? [employer]. All rights reserved. This information is not intended as a substitute for professional medical care. Always follow your healthcare professional's instructions. ?? * Sisi Silva RN: PERFORM Event Display: Patient Education Leaflets Authored Date: [id number] Amoxicillin Oral Tablet ?? [id number] Amoxicillin Oral Tablet Uses For treating bacterial infection. ?? Instructions This medicine may be taken with or without food. Keep the medicine at room temperature. Avoid heat and direct light. It is important that you keep taking each dose of this medicine on time even if you are feeling well. If you forget to take a dose on time, take it as soon as you remember. If it is almost time for thenext dose, do not take the missed dose. Return to your normal schedule. Do not take 2 doses at one time. Tell your doctor and pharmacist about all your medicines. Include prescription and otow-lkp-bfjdjtkrgvbikpre, vitamins, and herbal medicines. Keep using this medicine for the full number of days that it is prescribed. Do not stop the medicine even if you start to feel better. If you have diabetes and use urine glucose tests, this medicine may cause incorrect results. Pleasecheck with your doctor before making any changes to your diabetes treatment plan. ?? Cautions Tell your doctor and pharmacist if you ever had an allergic reaction to a medicine. Do not use the medication any more than instructed. Please tell your doctor if you have moderate to severe diarrhea while on this medicine. Do not treat the diarrhea with knsu-pml-akpuvov diarrhea medicine. Tell the doctor or pharmacist if you are , planning to be , or . Do not start or stop any other medicines without first speaking to your doctor or pharmacist. Do not share this medicine with anyone who has not been prescribed this medicine. ?? Side Effects The following is a list of some common side effects from this medicine. Please speak with your doctor about what you should do if you experience these or other side effects. ??? diarrhea ??? mouth sores or irritation ??? nausea and vomiting ??? stomach upset or abdominal pain Call your doctor or get medical help right away if you notice any of these more serious side effects: ??? severe or persistent abdominal pain ??? severe, watery or bloody diarrhea ??? signs of liver damage (such as yellowing of eye or skin, dark urine, or unusual tiredness) ??? red, burning, or itchyskin ??? yeast infection of mouth ??? vaginal itching or discharge A few people may have an allergic reaction to this medicine. Symptoms can include difficulty breathing, skin rash, itching, swelling, or severe dizziness. If you notice any of these symptoms, seek medical help quickly. ?? Extra Please speak with your doctor, nurse, or pharmacist if you have any questions about this medicine. ?? [email or web address] IMPORTANT NOTE: This document tells you briefly how to take your medicine, but it does not tell youall there is to know about it. Your doctor or pharmacist may give you other documents about your medicine. Please talk to them if you have any questions. Always follow their advice. There is a more complete description of this medicine available in [place]. Scan this code on your smartphone or tablet or use the web address below. You can also ask your pharmacist for a printout. If you have any questions, please ask your pharmacist. The display and use of this drug information is subject to Terms of Use. Copyright(c) 2022 [employer]. ?? [employer]. All rights reserved. This information is not intended as a substitute for professional medical care. Always follow your healthcare professional's instructions. ?? Patient Care team information Care Team Personnel Name: Carmel Salguero MD Position: [facility] Physician - Primary Care Member Role: PCP Address: Address: [address], [address] [place] [address]- Name: Ivory Aldana RN Position: [facility] RN Member Role: Primary Care Nurse Name: Jed ESPINOSA Attending Position: [facility] NIDA Mitchell MD Name: Naomy Bender Position: [facility] Member Role: Soap Mixer Name: Mesfin Cardona RN Position: [facility] ED RN W/OE and Tasks Member Role: Patient Care Provider Care Team Related Persons Name: ISRRAELJESSI JUAN Address: home [address] [place] [address] Name: LATA REESE Address: [employer] Address: [place] [address] Name: GINA REESE Address: [employer] Address: home [address] [address]
--- OUTSIDE RECORDS SUMMARY | 2023-11-05 11:28 | XMS_ITS | Continuity of Care Document ---
Author Name Unknown Organization [facility] ter Address [address] [place] [id number]- Care Team Providers Care Communications Technician Name Role Phone Carmel Salguero MD Primary Care Physician Encounter [facility] Date(s): 02/04/22 - 02/04/[address] [id number] Discharge Disposition: A-D/C Home Attending Physician: [...] hours, PRN for pain, May partial fill [id number], # 12 tablet, 0 Refills, Maintenance, 05/12/21 1:03:00 EDT, Tablet, [facility]/pharmacy #1234, Partial fill upon patient request [...] 0 Refills, Maintenance, 09/13/21 12:29:00 EDT, Capsule, [facility]/pharmacy #1234, 175, cm, 05/12/21 1:24:00 EDT, Height, [...] 13:07:37, Tablet Start Date: 03/28/17 Status: Ordered Fioricet Tablet 1 tablet, Tablet, By Mouth, Once, PRN for Headache, Routine, 02/04/22 13:54:00 EST Notes: Butalbital 50mg, APAP 325mg, Caffeine 40mg per tablet Start Date: 02/04/22 Stop Date: 02/04/22 Status: Completed Fioricet Tablet 1 tablet, Tablet, By Mouth, Once, PRN for Headache, Routine, 02/04/22 14:07:00 EST Notes: Butalbital 50mg, Not to exceed 4000mg of Acetaminophen per 24 hours. 325mg, Caffeine 40mg per tablet Start Date: 02/04/22 Stop Date: 02/04/22 Status: Completed Mirena 52 mg intrauteral device 1 each [...] Gm, 0 Refills, Maintenance, 09/13/21 12:29:00 EDT, [facility]/pharmacy #1234, Partial fill upon patient request if the prescription is for a schedule II opioid drug., 2 puffs Inhalat... Start Date: 09/13/21 Status: Ordered SUMAtriptan 100 mg oral tablet See Instructions, TAKE 1 TABLET BY MOUTH ONCE, # 9 tablet, 4 Refills, Soft Stop, [facility], 175, cm, 07/09/19 15:48:00 EDT, Height, 113, kg, 07/09/19 15:48:00 EDT, Dry Weight Start Date: 12/27/20 Status: Ordered Problem List Condition Effective Dates Status Health Status Inform ant Amenorrhea(Confirmed) Active Obstructive sleep apnea(Confirmed) Active Healthcare maintenance(Confirmed) Active COVID-19 virus detected(Confirmed) Active Vital Signs Most recent to oldest [Reference Range]: 1 2 3 Weight 117.7 kg (02/04/22 12:39 PM) Oxygen Saturation [94-100 %] 94 % (02/04/22 12:39 PM) Blood Pressure [90-138/55-84 mm Hg] 122/69mm Hg (02/04/22 6:08 PM) 111/61mm Hg (02/04/22 12:39 PM) Respiratory Rate [16-30 br/min] 16 br/min (02/04/22 2:41 PM) 16 br/min (02/04/22 2:27 PM) 18 br/min (02/04/22 1:41 PM) Temperature [96.8-100.4 DegF] 98.0 DegF (02/04/22 12:39 PM) Temperature Route Oral (02/04/22 12:39 PM) Dry Weight 117.7 kg (02/04/22 12:39 PM) Weight Obtained Via Standing scale (02/04/22 12:39 PM) Dry Weight Obtained Via Standing scale (02/04/22 12:39 PM) Social History Social History Type Response Smoking Status Former smoker; Other : quit 2012; entered on: 03/01/17 Sex
--- OUTSIDE RECORDS SUMMARY | 2023-11-05 11:28 | XMS_ITS | Continuity of Care Document ---
Author Name Unknown Organization [facility] Address [address] [place] [address]- Care Team Providers Care Apns Name Role Phone Carmel Salguero MD Primary Care Physician [place] [facility] [id number] Date(s): 09/12/21 - 10/12/21 [facility] [address] [place], [place] [address] Attending Physician: Not on Staff, Attending MD Referring Physician: Carmel Salguero MD Allergies, Adverse Reactions, Alerts Substance Reaction Severity Status NKA Active Immunizations Given and Recorded Vaccine Date Status Refusal Reason SARS-CoV-2 (COVID-19) mRNA BNT-162b2 vac 06/10/21 Recorded Influenza Virus Vaccine (oldterm) 09/07/19 Recorde d tetanus/diphtheria/pertussis, acel(Tdap) 1 05/16/13 Given 1Admin Note: 12/22/2011 Medications acetaminophen-HYDROcodone 325 mg-5 mg oral tablet 1-2 tablet, By Mouth, Every 6 hours, PRN for pain, May partial fill [id number], # 12 tablet, 0 Refills, Maintenance, 05/12/21 [...] Gm, 0 Refills, Maintenance, 09/13/21 12:29:00 EDT, [facility]/pharmacy #[id number], Partial fill upon patient request if the prescription is for a schedule II opioid drug., 2 puffs Inhalat... Start Date: 09/13/21 Status: Ordered SUMAtriptan 100 mg oral tablet See Instructions, TAKE 1 TABLET BY MOUTH ONCE, # 9 tablet, 4 Refills, Soft Stop, [facility] STORE [id number], 175, cm, 07/09/19 15:48:00 EDT, Height, 113, [...]
--- OUTSIDE RECORDS SUMMARY | 2023-11-05 11:28 | XMS_ITS | Continuity of Care Document ---
Author Name Unknown Organization [facility] Address [address] [place] [address]- Care Team Providers Care Director Of Kids Name Role Phone Noemy CHO, Carmel Castro Primary Care Physician [phone] Encounter [facility] Date(s): 04/28/22 - 05/28/22 [facility] [address] [place] [id number] Allergies, Adverse Reactions, Alerts No Known Allergies Immunizations Given and Recorded Vaccine Date Status Refusal Reason SARS-CoV-2 (COVID-19) mRNA BNT-162b2 vac 06/10/21 Recorded Influenza Virus Vaccine (oldterm) 09/07/19 Recorde d tetanus/diphtheria/pertussis, acel(Tdap) 1 05/16/13 Given 1Admin Note: 12/22/2011 Medications acetaminophen 325 mg oral tablet 650 mg, By Mouth, Every 4 hours, (1-3), may give 325mg per patient preference and re-dose with 325mg within 4 hours, if needed. Patient should only receive a total of 650mg of Acetaminophen every 4 hours., # 50 tablet, Refills 0, Tot. Refills 0, Nely... Start Date: 05/10/22 Status: Ordered docusate sodium 100 mg oral capsule 100 mg, 1, capsule, By Mouth, 2 times a day, # 60 capsule, Refills 0, Tot. Refills 0, Maintenance, 05/10/22 7:05:00 EDT, Route to Pharmacy Electronically, [facility]/pharmacy #[id number], Partial fill upon patient request if the prescription is for a schedule II o... Start Date: 05/10/22 Status: Ordered ibuprofen 800 mg oral tablet 800 mg, 1, tablet, By Mouth, Every 8 hours, (4-6), may give 400mg per patient preference and re-dose with 400mg within 8 hours, if needed. Patient should only receive a total of 800mg of Ibuprofen every 8 hours., # 30 tablet, Refills 0, Tot. Refills... Start Date: 05/10/22 Status: Ordered oxyCODONE 5 mg oral tablet 5 mg, 1, tablet, By Mouth, Every 6 hours, PRN, # 10 tablet, Refills 0, Tot. Refills 0, Maintenance,as needed for pain, 05/13/22 7:58:00 EDT, Route to Pharmacy Electronically, [facility]/pharmacy #[id number], Partial fill upon patient request if the prescription i... Start Date: 05/13/22 Status: Ordered Multivitamins By Mouth, Daily, 0 Refills, Maintenance, 03/16/22 19:12:00 EDT, Partial fill upon patient request if the prescription is for a schedule II opioid drug. Start Date: 03/16/22 Status: Ordered simethicone 80 mg oral tablet, chewable 80 mg, Chew, 3 times a day, PRN, # 90 tablet, Refills 0, Tot. Refills 0, Maintenance, Gas, 227:05:00 EDT, Route to Pharmacy Electronically, [facility]/pharmacy #[id number], Partial fill upon patient request if the prescription is for a schedule II opioid Start Date: 05/10/22 Status: Ordered SUMAtriptan 100 mg oral tablet See Instructions, TAKE 1 TABLET BY MOUTH ONCE, # 9 tablet, 4 Refills, [facility] STORE [id number], 175, cm, 05/10/22 12:34:00 EDT, Height, 138, kg, 05/07/22 22:59:00 EDT, Dry Weight Start Date: 05/24/22 Status: Ordered Problem List Condition Effective Dates Status Health Status Inform ant Amenorrhea(Confirmed) Active Obstructive sleep apnea(Confirmed) Active Healthcare maintenance(Confirmed) Active COVID-19 virus detected(Confirmed) Active Severe obesity(Confirmed) Active Social History Social History Type Response Smoking Status Former smoker; Other : quit 2012; entered on: 03/01/17 Sex
--- OUTSIDE RECORDS SUMMARY | 2023-11-05 11:28 | XMS_ITS | Continuity of Care Document ---
Author Name Unknown Organization [facility] ter Address [address] [place] [address]- Care Team Providers Care Transit Vehicle Inspector Name Role Phone Carmel Salguero MD Primary Care Physician [place] [facility] [place] - 04/25/[address] [id number] Discharge Disposition: A-D/C Home Attending Physician: Gabriela Wood CNM Admitting Physician: Gabriela Wood CNM Referring Physician: Gabriela Wood CNM Allergies, Adverse Reactions, Alerts No Known Allergies Immunizations Given and Recorded Vaccine Date Status Refusal Reason SARS-CoV-2 (COVID-19) mRNA BNT-162b2 vac 06/10/21 Recorded Influenza Virus Vaccine (oldterm) 09/07/19 Recorde d tetanus/diphtheria/pertussis, acel(Tdap) 1 05/16/13 Given 1Admin Note: 12/22/2011 Medications acetaminophen-HYDROcodone 325 mg-5 mg oral tablet 1-2 tablet, By Mouth, Every 6 hours, PRN for pain, May partial fill [id number], # 12 tablet, 0 Refills, Maintenance, 05/12/21 1:03:00 EDT, Tablet, [facility]/pharmacy #[id number], Partial fill upon patient request if the prescription is for a schedule II opioid d... Start Date: 05/12/21 Status: Ordered Allergy = 25 mg, By Mouth, 3 times a day, 0 Refills, Maintenance, 03/01/17 10:39:34 Start Date: 03/01/17 Status: Ordered aspirin 162.5 mg oral capsule, extended release 1 capsule = 162.5 mg, By Mouth, Daily, at the same time every day, # 30 capsule, 0 Refills, Maintenance, 03/16/22 19:12:00 EDT, ER Capsule, Partial fill upon patient request if the prescription is for a schedule II opioid drug. Start Date: 03/16/22 Status: Ordered benzonatate 200 mg oral capsule 1 capsule = 200 mg, By Mouth, 3 times a day, PRN as needed for cough, # 40 capsule, 0 Refills, Maintenance, 09/13/21 12:29:00 EDT, Capsule, [facility]/pharmacy #[id number], 175, cm, 05/12/21 1:24:00 EDT, Height, [...] 13:07:37, Tablet Start Date: 03/28/17 Status: Ordered metroNIDAZOLE 500 mg oral tablet 1 tablet = 500 mg, By Mouth, Every 12 hours, # 14 tablet, 0 Refills, Maintenance, 02/26/22 20:57:00EDT, Tablet, [facility]/pharmacy #1234, Partial fill upon patient request if the prescription is for a schedule II opioid drug., 175, cm, 05/12/21 1:24:00 EDT... Start Date: 02/26/22 Stop Date: 03/05/22 Status: Ordered Mirena 52 mg intrauteral device 1 each = 52 mg, Once, 0 Refills, Maintenance, 03/01/17 11:59:06 Start Date: 03/01/17 Status: Ordered naproxen sodium Start Date: 03/01/17 Status: Ordered oxyCODONE 5 mg oral capsule 1 capsule = 5 mg, By Mouth, Every 6 hours, 0 Refills, Maintenance, 03/01/17 10:40:35 Start Date: 03/01/17 Status: Ordered Multivitamins By Mouth, Daily, 0 Refills, Maintenance, 03/16/22 19:12:00 EDT, Partial fill upon patient request if the prescription is for a schedule II opioid drug. Start Date: 03/16/22 Status: Ordered ProAir HFA 90 mcg/inh inhalation aerosol 2 puffs, Inhalation, Every 6 hours, PRN Wheezing/Shortness of Breath, # 8.5 Gm, 0 Refills, Maintenance, 09/13/21 12:29:00 EDT, [facility]/pharmacy #[id number], Partial fill upon patient request if the prescription is for a schedule II opioid drug., 2 puffs Inhalat... Start Date: 09/13/21 Status: Ordered SUMAtriptan 100 mg oral tablet See Instructions, TAKE 1 TABLET BY MOUTH ONCE, # 9 tablet, 4 Refills, Soft Stop, [facility] [id number], 175, cm, 07/09/19 15:48:00 EDT, Height, 113, [...]
--- OUTSIDE RECORDS SUMMARY | 2023-11-05 11:28 | XMS_ITS | Continuity of Care Document ---
Author Name Unknown Organization [facility] Address [address] [place] [phone]- Care Team Providers Care Plc Programmer Name Role Phone Carmel Salguero MD Primary Care Physician [place] [facility] [place] 10[place]17[place]21 - 11/16/21 [facility] [address] [place] [id number] Allergies, Adverse Reactions, Alerts Substance Reaction Severity Status NKA Active Immunizations Given and Recorded Vaccine Date Status Refusal Reason SARS-CoV-2 (COVID-19) mRNA BNT-162b2 vac 06/10/21 Recorded Influenza Virus Vaccine (oldterm) 09/07/19 Recorde d tetanus/diphtheria/pertussis, acel(Tdap) 1 05/16/13 Given 1Admin Note: 12/22/2011 Medications acetaminophen-HYDROcodone 325 mg-5 mg oral tablet 1-2 tablet, By Mouth, Every 6 hours, PRN for pain, May partial fill BS [id number], # 12 tablet, 0 Refills, Maintenance, 05/12/21 [...] Gm, 0 Refills, Maintenance, 09/13/21 12:29:00 EDT, [facility]/pharmacy #1234, Partial fill upon patient request if the prescription is for a schedule II opioid drug., 2 puffs Inhalat... Start Date: 09/13/21 Status: Ordered SUMAtriptan 100 mg oral tablet See Instructions, TAKE 1 TABLET BY MOUTH ONCE, # 9 tablet, 4 Refills, Soft Stop, [facility] [id number], 175, cm, 07/09/19 15:48:00 EDT, Height, 113, [...]
--- OUTSIDE RECORDS SUMMARY | 2023-11-05 11:28 | XMS_ITS | Continuity of Care Document ---
Author Name Unknown Organization [facility] Address [address] [place] [address]- Care Team Providers Care Industrial Sales Manager Name Role Phone Noemy CHO, Carmel Castro Primary Care Physician [phone] [place] [facility] [id number] Date(s): 11/14/21 - 12/14/21 [facility] [address] [place] [id number] Attending Physician: Admcosme, Maryann Admitting Physician: Admtr, Ar8 Referring Physician: Admtr, Ar8 Allergies, Adverse Reactions, Alerts No Known Allergies Immunizations Given and Recorded Vaccine Date Status Refusal Reason SARS-CoV-2 (COVID-19) mRNA BNT-162b2 vac 06/10/21 Recorded Influenza Virus Vaccine (oldterm) 09/07/19 Recorde d tetanus/diphtheria/pertussis, acel(Tdap) 1 05/16/13 Given 1Admin Note: 12/22/2011 Medications acetaminophen-HYDROcodone 325 mg-5 mg oral tablet 1-2 tablet, By Mouth, Every 6 hours, PRN for pain, May partial fill [id number], # 12 tablet, 0 Refills, Maintenance, 05/12/21 [...] Gm, 0 Refills, Maintenance, 09/13/21 12:29:00 EDT, [facility]/pharmacy #[id number], Partial fill upon patient request if the prescription is for a schedule II opioid drug., 2 puffs Inhalat... Start Date: 09/13/21 Status: Ordered SUMAtriptan 100 mg oral tablet See Instructions, TAKE 1 TABLET BY MOUTH ONCE, # 9 tablet, 4 Refills, Soft Stop, [facility]ORE 16555, 175, cm, 07/09/19 15:48:00 EDT, Height, 113, [...]
--- OUTSIDE RECORDS SUMMARY | 2023-11-05 11:29 | XMS_ITS | Continuity of Care Document ---
Author Name Unknown Organization [facility] Address [address] [place] [address]- Care Team Providers Care Curb Worker Name Role Phone Carmel Salguero MD Primary Care Physician Encounter [facility] Date(s): 01/03/22 - 02/02/22 [facility] [address] [place] [id number] Allergies, Adverse Reactions, Alerts No Known Allergies Immunizations Given and Recorded Vaccine Date Status Refusal Reason SARS-CoV-2 (COVID-19) mRNA BNT-162b2 vac 06/10/21 Recorded Influenza Virus Vaccine (oldterm) 09/07/19 Recorde d tetanus/diphtheria/pertussis, acel(Tdap) 1 05/16/13 Given 1Admin Note: 12/22/2011 Medications acetaminophen-HYDROcodone 325 mg-5 mg oral tablet 1-2 tablet, By Mouth, Every 6 hours, PRN for pain, May partial fill [id number], # 12 tablet, 0 Refills, Maintenance, 05/12/21 [...] 0 Refills, Maintenance, 09/13/21 12:29:00 EDT, [facility]/pharmacy #[id number], Partial fill upon patient request if the prescription is for a schedule II opioid drug., 2 puffs Inhalat... Start Date: 09/13/21 Status: Ordered SUMAtriptan 100 mg oral tablet See Instructions, TAKE 1 TABLET BY MOUTH ONCE, # 9 tablet, 4 Refills, Soft Stop, [facility], 175, cm, 07/09/19 15:48:00 EDT, Height, 113, [...]
--- OUTSIDE RECORDS SUMMARY | 2023-11-05 11:29 | XMS_ITS | Continuity of Care Document ---
Author Name Unknown Organization [facility] ter Address [address] [place] [address]- Care Team Providers Care Concrete Pipe Plant Supervisor Name Role Phone Carmel Salguero MD Primary Care Physician [place] [facility] [place] Date(s): 04/10/22 - 04/10/[address] [address] Discharge Disposition: A-D/C Home Attending Physician: Gabriela [...] hours, PRN for pain, May partial fill [id number], # 12 tablet, 0 Refills, Maintenance, 05/12/21 [...] 0 Refills, Maintenance, 09/13/21 12:29:00 EDT, Capsule, [facility]/pharmacy #1234, 175, cm, 05/12/21 1:24:00 [...] tablet, 0 Refills, Maintenance, 02/26/22 20:57:00EDT, Tablet, [facility]/pharmacy #1234, Partial fill upon patient [...] Gm, 0 Refills, Maintenance, 09/13/21 12:29:00 EDT, [facility]/pharmacy #1234, Partial fill upon patient request if the prescription is for a schedule II opioid drug., 2 puffs Inhalat... Start Date: 09/13/21 Status: Ordered SUMAtriptan 100 mg oral tablet See Instructions, TAKE 1 TABLET BY MOUTH ONCE, # 9 tablet, 4 Refills, Soft Stop, [facility] STORE 50984, 175, cm, 07/09/19 15:48:00 EDT, Height, 113, [...]
--- OUTSIDE RECORDS SUMMARY | 2023-11-05 11:29 | XMS_ITS | Continuity of Care Document ---
Author Name Unknown Organization [facility] Address [address] [place] [address]- Care Team Providers Care Agile Project Manager Name Role Phone Carmel Salguero MD Primary Care Physician Encounter [facility] Date(s): 01/31/22 - 03/02/22 [facility] [address] [place] [address] [place] Allergies, Adverse Reactions, Alerts No Known Allergies Immunizations Given and Recorded Vaccine Date Status Refusal Reason SARS-CoV-2 (COVID-19) mRNA BNT-162b2 vac 06/10/21 Recorded Influenza Virus Vaccine (oldterm) 09/07/19 Recorde d tetanus/diphtheria/pertussis, acel(Tdap) 1 05/16/13 Given 1Admin Note: 12/22/2011 Medications acetaminophen-HYDROcodone 325 mg-5 mg oral tablet 1-2 tablet, By Mouth, Every 6 hours, PRN for pain, May partial fill BS [id number], # 12 tablet, 0 Refills, Maintenance, 05/12/21 [...] tablet, 0 Refills, Maintenance, 02/26/22 20:57:00EDT, Tablet, [facility]/pharmacy #1234, Partial fill upon patient request if [...] Gm, 0 Refills, Maintenance, 09/13/21 12:29:00 EDT, [facility]/pharmacy #1234, Partial fill upon patient request if the prescription is for a schedule II opioid drug., 2 puffs Inhalat... Start Date: 09/13/21 Status: Ordered SUMAtriptan 100 mg oral tablet See Instructions, TAKE 1 TABLET BY MOUTH ONCE, # 9 tablet, 4 Refills, Soft Stop, [facility] 00451, 175, cm, 07/09/19 15:48:00 EDT, Height, 113, [...]
--- OUTSIDE RECORDS SUMMARY | 2023-11-05 11:29 | XMS_ITS | Continuity of Care Document ---
Author Name Unknown Organization [facility] Address [address] [place] [address]- Care Team Providers Care Bag Washer Name Role Phone Carmel Salguero MD Primary Care Physician [place] [facility] [place] 04/05/22 - 05/05/22 [facility] [address] [place] [id number] Attending Physician: Admtr, Maryann Admitting Physician: Admtr, Hilario8 Referring Physician: Admtr, Ar8 Allergies, Adverse Reactions, Alerts No Known Allergies Immunizations Given and Recorded Vaccine Date Status Refusal Reason SARS-CoV-2 (COVID-19) mRNA BNT-162b2 vac 06/10/21 Recorded Influenza Virus Vaccine (oldterm) 09/07/19 Recorde d tetanus/diphtheria/pertussis, acel(Tdap) 1 05/16/13 Given 1Admin Note: 12/22/2011 Medications acetaminophen-HYDROcodone 325 mg-5 mg oral tablet 1-2 tablet, By Mouth, Every 6 hours, PRN for pain, May partial fill [id number], # 12 tablet, 0 Refills, Maintenance, 05/12/21 1:03:00 EDT, Tablet, [facility]/pharmacy #1234, Partial fill upon patient [...] 0 Refills, Maintenance, 09/13/21 12:29:00 EDT, Capsule, [facility]/pharmacy #1234, 175, cm, 05/12/21 1:24:00 [...] tablet, 0 Refills, Maintenance, 02/26/22 20:57:00EDT, Tablet, [facility]/pharmacy #1234, Partial fill upon patient [...] Gm, 0 Refills, Maintenance, 09/13/21 12:29:00 EDT, [facility]/pharmacy #1234, Partial fill upon patient request if the prescription is for a schedule II opioid drug., 2 puffs Inhalat... Start Date: 09/13/21 Status: Ordered SUMAtriptan 100 mg oral tablet See Instructions, TAKE 1 TABLET BY MOUTH ONCE, # 9 tablet, 4 Refills, Soft Stop, [facility]ORE 06410, 175, cm, 07/09/19 15:48:00 EDT, Height, 113, [...]
--- OUTSIDE RECORDS SUMMARY | 2023-11-05 11:29 | XMS_ITS | Continuity of Care Document ---
Author Name Unknown Organization [facility] ter Address [address] [place] [address]- Care Team Providers Care Feed Manager Name Role Phone Noemy CHO, Carmel Castro Primary Care Physician [phone] Encounter [facility] [place] Date(s): 02/24/22 - 06/07/[address] [id number] Attending Physician: Jorge Holly MD Referring Physician: Jorge [...] 05/10/22 7:05:00 EDT, Route to Pharmacy Electronically, [facility]/pharmacy #[id number], Partial fill upon patient request if the [...] 05/13/22 7:58:00 EDT, Route to Pharmacy Electronically, [facility]/pharmacy #1234, Partial fill upon patient request [...] Refills 0, Tot. Refills 0, Maintenance, Gas, :05:00 EDT, Route to Pharmacy Electronically, [facility]/pharmacy #1234, Partial fill upon patient request if the prescription is for a schedule II opioid dr... Start Date: 05/10/22 Status: Ordered SUMAtriptan 100 mg oral tablet See Instructions, TAKE 1 TABLET BY MOUTH ONCE, # 9 tablet, 4 Refills, [facility] 16871, 175, cm, 05/10/22 12:34:00 EDT, Height, 138, [...]
--- OUTSIDE RECORDS SUMMARY | 2023-11-05 11:29 | XMS_ITS | Continuity of Care Document ---
Author Name Unknown Organization [facility] Address [address] [place] [address]- Care Team Providers Care Air Carrier Inspector Name Role Phone Noemy CHO, Carmel Castro Primary Care Physician [phone] [place] [facility] [place] 09/19/21 [facility] [address] [place] [address]- Encounter Diagnosis Viral URI(Discharge Diagnosis) - 09/12/21 Attending Physician: Carol Castellanos MD Referring Physician: Carmel Salguero MD Allergies, [...] hours, PRN for pain, May partial fill [id number], # 12 tablet, 0 Refills, Maintenance, 05/12/21 [...] 0 Refills, Maintenance, 09/13/21 12:29:00 EDT, Capsule, [facility]/pharmacy #1234, 175, cm, 05/12/21 1:24:00 EDT, Height, [...] Gm, 0 Refills, Maintenance, 09/13/21 12:29:00 EDT, [facility], Partial fill upon patient request if the prescription is for a schedule II opioid drug., 2 puffs Inhalat... Start Date: 09/13/21 Status: Ordered SUMAtriptan 100 mg oral tablet See Instructions, TAKE 1 TABLET BY MOUTH ONCE, # 9 tablet, 4 Refills, Soft Stop, [facility] 92384, 175, cm, 07/09/19 15:48:00 EDT, Height, 113, kg, 07/09/19 15:48:00 EDT, Dry Weight Start Date: 12/27/20 Status: Ordered Problem List Condition Effective Dates Status Health Status Inform ant Cough(Confirmed) Active Headache(Confirmed) Active Obstructive sleep apnea(Confirmed) Active COVID-19 virus detected(Confirmed) Active Diagnosis Diagnosis Type Effective Dates Health Status Clini jayna Service Informant Viral URI Discharge Diagnosis 09/12/21 Social History Social History Type Response Smoking Status Former smoker; Other : quit 2012; entered on: 03/01/17 Sex
--- OUTSIDE RECORDS SUMMARY | 2023-11-05 11:29 | XMS_ITS | Continuity of Care Document ---
Author Name Unknown Organization [facility] Address [address] [place] [address]- Care Team Providers Care Pleater Name Role Phone Noemy CHO, Carmel Castro Primary Care Physician [phone] [facility] [facility] [place] [id number] Date(s): 09/12/21 - 10/12/21 [facility] [address] [place], [place] [address] Attending Physician: Maryann Saba Admitting Physician: AdmtrMaryann Referring Physician: Admtr ArSam Allergies, Adverse Reactions, Alerts Substance Reaction Severity Status NKA Active Immunizations Given and Recorded Vaccine Date Status Refusal Reason SARS-CoV-2 (COVID-19) mRNA BNT-162b2 vac 06/10/21 Recorded Influenza Virus Vaccine (oldterm) 09/07/19 Recorde d tetanus/diphtheria/pertussis, acel(Tdap) 1 05/16/13 Given 1Admin Note: 12/22/2011 Medications acetaminophen-HYDROcodone 325 mg-5 mg oral tablet 1-2 tablet, By Mouth, Every 6 hours, PRN for pain, May partial fill [id number], # 12 tablet, 0 Refills, Maintenance, 05/12/21 [...] Gm, 0 Refills, Maintenance, 09/13/21 12:29:00 EDT, [facility]/pharmacy #1234, Partial fill upon patient request if the prescription is for a schedule II opioid drug., 2 puffs Inhalat... Start Date: 09/13/21 Status: Ordered SUMAtriptan 100 mg oral tablet See Instructions, TAKE 1 TABLET BY MOUTH ONCE, # 9 tablet, 4 Refills, Soft Stop, [facility] 56517, 175, cm, 07/09/19 15:48:00 EDT, Height, 113, [...]
--- OUTSIDE RECORDS SUMMARY | 2023-11-05 11:29 | XMS_ITS | Continuity of Care Document ---
Author Name Unknown Organization [facility] Address [address] [place] [address]- Care Team Providers Care Fashion Patternmaker Name Role Phone Carmel Salguero MD Primary Care Physician En[place] [facility] [place] Date(s): 04/05/22 - 05/05/22 [facility] [address] [place] [id number] Referring Physician: Jo-Ann Banda Allergies, Adverse Reactions, Alerts No Known Allergies Immunizations Given and Recorded Vaccine Date Status Refusal Reason SARS-CoV-2 (COVID-19) mRNA BNT-162b2 vac 06/10/21 Recorded Influenza Virus Vaccine (oldterm) 09/07/19 Recorde d tetanus/diphtheria/pertussis, acel(Tdap) 1 05/16/13 Given 1Admin Note: 12/22/2011 Medications acetaminophen-HYDROcodone 325 mg-5 mg oral tablet 1-2 tablet, By Mouth, Every 6 hours, PRN for pain, May partial fill [id number], # 12 tablet, 0 Refills, Maintenance, 05/12/21 1:03:00 EDT, Tablet, [facility]/pharmacy #1234, Partial fill upon patient request [...] Refills, Maintenance, 09/13/21 12:29:00 EDT, Capsule, [facility]/pharmacy #1234, 175, cm, 05/12/21 1:24:00 EDT, [...] 0 Refills, Maintenance, 02/26/22 20:57:00EDT, Tablet, [facility]/pharmacy #1234, Partial fill upon patient request [...] Breath, # 8.5 Gm, 0 Refills, Maintenance, 10/19/21 12:29:00 EDT, [facility]/pharmacy #1234, Partial fill upon patient request if the prescription is for a schedule II opioid drug., 2 puffs Inhalat... Start Date: 09/13/21 Status: Ordered SUMAtriptan 100 mg oral tablet See Instructions, TAKE 1 TABLET BY MOUTH ONCE, # 9 tablet, 4 Refills, Soft Stop, [facility] STORE [address]45, 175, cm, 07/09/19 15:48:00 EDT, Height, 113, [...]
--- OUTSIDE RECORDS SUMMARY | 2023-11-05 11:30 | XMS_ITS | Continuity of Care Document ---
Author Name Unknown Organization [facility] Address [address] [place] [id number]- Care Team Providers Care Router Tender Name Role Phone Carmel Salguero MD Primary Care Physician Encounter [facility] Date(s): 03/08/22 - 04/07/22 [facility] [address] [place] [id number] Allergies, Adverse Reactions, Alerts No Known Allergies Immunizations Given and Recorded Vaccine Date Status Refusal Reason SARS-CoV-2 (COVID-19) mRNA BNT-162b2 vac 06/10/21 Recorded Influenza Virus Vaccine (oldterm) 09/07/19 Recorde d tetanus/diphtheria/pertussis, acel(Tdap) 1 05/16/13 Given 1Admin Note: 12/22/2011 Medications acetaminophen-HYDROcodone 325 mg-5 mg oral tablet 1-2 tablet, By Mouth, Every 6 hours, PRN for pain, May partial fill BS [id number], # 12 tablet, 0 Refills, Maintenance, 05/12/21 [...] 0 Refills, Maintenance, 09/13/21 12:29:00 EDT, Capsule, [facility]/pharmacy #[id number], 175, cm, 05/12/21 1:24:00 EDT, Height, [...] tablet, 0 Refills, Maintenance, 02/26/22 20:57:00EDT, Tablet, [facility]/pharmacy #[id number], Partial fill upon patient request if [...] Gm, 0 Refills, Maintenance, 09/13/21 12:29:00 EDT, [facility]/pharmacy #[id number], Partial fill upon patient request if the prescription is for a schedule II opioid drug., 2 puffs Inhalat... Start Date: 09/13/21 Status: Ordered SUMAtriptan 100 mg oral tablet See Instructions, TAKE 1 TABLET BY MOUTH ONCE, # 9 tablet, 4 Refills, Soft Stop, [facility] [id number], 175, cm, 07/09/19 15:48:00 EDT, Height, 113, [...]
--- OUTSIDE RECORDS SUMMARY | 2023-11-05 11:30 | XMS_ITS | Continuity of Care Document ---
Author Name Unknown Organization [facility] Address [address] [place] [phone]- Care Team Providers Care Retail Parts Professional Name Role Phone Carmel Salguero MD Primary Care Physician Encounter [facility] Date(s): 10/13/21 - 11/12/21 [facility] [address] [place] [id number] Allergies, Adverse Reactions, Alerts Substance Reaction Severity Status NKA Active Immunizations Given and Recorded Vaccine Date Status Refusal Reason SARS-CoV-2 (COVID-19) mRNA BNT-162b2 vac 06/10/21 Recorded Influenza Virus Vaccine (oldterm) 09/07/19 Recorde d tetanus/diphtheria/pertussis, acel(Tdap) 1 05/16/13 Given 1Admin Note: 12/22/2011 Medications acetaminophen-HYDROcodone 325 mg-5 mg oral tablet 1-2 tablet, By Mouth, Every 6 hours, PRN for pain, May partial fill BS [id number], # 12 tablet, 0 Refills, Maintenance, 05/12/21 [...] Refills, Maintenance, 09/13/21 12:29:00 EDT, [facility]/pharmacy #[id number], Partial fill upon patient request if the prescription is for a schedule II opioid drug., 2 puffs Inhalat... Start Date: 09/13/21 Status: Ordered SUMAtriptan 100 mg oral tablet See Instructions, TAKE 1 TABLET BY MOUTH ONCE, # 9 tablet, 4 Refills, Soft Stop, [facility] [id number], 175, cm, 07/09/19 15:48:00 EDT, Height, 113, [...]
--- OUTSIDE RECORDS SUMMARY | 2023-11-05 11:30 | XMS_ITS | Continuity of Care Document ---
Author Name Unknown Organization [facility] ter Address [address] [place] [id number]- Care Team Providers Care Cloth Examiner Name Role Phone Noemy CHO, Carmel Castro Primary Care Physician Encounter [facility] Date(s): 04/10/22 - 05/10/[address] [id number] Attending Physician: Gabriela Wood CNM Admitting Physician: [...] 05/10/22 7:05:00 EDT, Route to Pharmacy Electronically, [facility]/pharmacy #[id number], Partial fill upon patient request if the [...] 5 mg, 1, tablet, By Mouth, Every 3 hours, PRN, (7-10), # 10 tablet, Refills 0, Tot. Refills 0, Acute 05/18/22 0:00:00 EDT, Pain , Severe, 05/10/22 7:05:00 EDT, Route to Pharmacy Electronically, [facility]/pharmacy #[id number], Partial fill upon patient request if... Start Date: 05/10/22 Stop Date: 05/18/22 Status: Ordered Multivitamins By Mouth, Daily, 0 Refills, Maintenance, 03/16/22 19:12:00 EDT, Partial fill upon patient request if the prescription is for a schedule II opioid drug. Start Date: 03/16/22 Status: Ordered simethicone 80 mg oral tablet, chewable 80 mg, Chew, 3 times a day, PRN, # 90 tablet, Refills 0, Tot. Refills 0, Maintenance, Gas, :05:00 EDT, Route to Pharmacy Electronically, [facility]/pharmacy #[id number], Partial fill upon patient request if the prescription is for a schedule II opioid Start Date: 05/10/22 Status: Ordered Problem List Condition Effective Dates Status Health Status Inform ant Amenorrhea(Confirmed) Active Obstructive sleep apnea(Confirmed) Active Healthcare maintenance(Confirmed) Active COVID-19 virus detected(Confirmed) Active Severe obesity(Confirmed) Active Social History Social History Type Response Smoking Status Former smoker; Other : quit 2012; entered on: 03/01/17 Sex
--- OUTSIDE RECORDS SUMMARY | 2023-11-05 11:30 | XMS_ITS | Continuity of Care Document ---
Author Name Unknown Organization [facility] ter Address [address] [place] [id number]- Care Team Providers Care Client Liaison Name Role Phone Noemy CHO, Carmel Castro Primary Care Physician Encounter [facility] Date(s): 05/07/22 - 05/10/[address] [id number] Discharge Disposition: A-D/C Home Attending [...] 0, Nely... Start Date: 05/10/22 Status: Ordered Acetaminophen Tablet 650 mg, Tablet, By Mouth, (1-3), may give 325mg per patient preference and re- dose with 325mg within 4 hours, if needed. Patient should only receive a total of 650mg of Acetaminophen every 4 hours., 05/10/22 10:00:00 EDT Start Date: 05/10/22 Stop Date: 05/10/22 Status: Completed docusate sodium 100 mg oral capsule 100 mg, 1, capsule, By Mouth, 2 times a day, # 60 capsule, Refills 0, Tot. Refills 0, Maintenance, 05/10/22 7:05:00 EDT, Route to Pharmacy Electronically, [facility]/pharmacy #[id number], Partial fill upon [...] 05/10/22 7:05:00 EDT, Route to Pharmacy Electronically, [facility]/pharmacy #[id number], Partial fill upon patient request if... Start Date: 05/10/22 Stop Date: 05/18/22 Status: Ordered OxyCODONE IR Tablet 5 mg, Tablet, By Mouth, Every 3 hours, PRN for Pain , Severe, (7-10), Routine, 05/09/22 0:45:00 EDT Start Date: 05/09/22 Stop Date: 05/11/22 Status: Discontinued Multivitamins By Mouth, Daily, 0 Refills, Maintenance, 03/16/22 19:12:00 EDT, Partial fill upon patient request if the prescription is for a schedule II opioid drug. Start Date: 03/16/22 Status: Ordered simethicone 80 mg oral tablet, chewable 80 mg, Chew, 3 times a day, PRN, # 90 tablet, Refills 0, Tot. Refills 0, Maintenance, Gas, :05:00 EDT, Route to Pharmacy Electronically, [facility]/pharmacy #[id number], Partial fill upon patient request if the prescription is for a schedule II opioid dr... Start Date: 05/10/22 Status: Ordered Problem List Condition Effective Dates Status Health Status Inform ant Amenorrhea(Confirmed) Active Obstructive sleep apnea(Confirmed) Active Healthcare maintenance(Confirmed) Active COVID-19 virus detected(Confirmed) Active Severe obesity(Confirmed) Active Procedures Procedure Date Related Diagnosis Body Site Status delivery only; 05/07/22 C ompleted Vital Signs Most recent to oldest [Reference Range]: 1 2 3 Height 175 cm (05/10/22 11:00 AM) 175 cm (05/10/22 8:55 AM) 175 cm (05/10/22 12:00 AM) Weight 138 kg (05/07/22 10:50 PM) 138.1 kg (05/07/22 10:11 PM) Oxygen Saturation [94-100 %] 96 % (05/10/22 8:55 AM) 99 % (05/10/22 12:00 AM) 95 % (05/09/22 4:00 PM) Pulse Rate [55-90 bpm] 85 bpm (05/10/22 8:55 AM) 97 bpm *H* (05/10/22 12:00 AM) 95 bpm *H* (05/09/22 4:00 PM) Body Mass Index [18.5-24.99] 45.06 *>HHI* (05/07/22 10:50 PM) Blood Pressure [90-138/55-84 mm Hg] 125/75mm Hg (05/10/22 8:55 AM) 135/70mm Hg (05/10/22 12:00 AM) 141/73mm Hg *H* (05/09/22 4:00 PM) Respiratory Rate [16-30 br/min] 18 br/min (05/10/22 3:11 PM) 18 br/min (05/10/22 3:11 PM) 18 br/min (05/10/22 11:03 AM) Temperature [96.8-100.4 DegF] 97.7 DegF (05/10/22 8:55 AM) 98.2 DegF (05/10/22 12:00 AM) 98.4 DegF (05/09/22 4:00 PM) Mode of Delivery (Oxygen) Room air (05/10/22 12:00 AM) Room air (05/09/22 4:00 PM) Room air (05/09/22 8:00 AM) Blood pressure sites Arm, left (05/10/22 8:55 AM) Arm, right (05/10/22 12:00 AM) Arm, right (05/09/22 4:00 PM) Temperature Route Oral (05/10/22 8:55 AM) Oral (05/10/22 12:00 AM) Oral (05/09/22 4:00 PM) Dry Weight 138 kg (05/07/22 10:50 PM) Weight Obtained Via Standing scale (05/07/22 10:11 PM) Social History Social History Type Response Smoking Status Former smoker; Other : quit 2012; entered on: 03/01/17 Sex
--- OUTSIDE RECORDS SUMMARY | 2023-11-05 11:30 | XMS_ITS | Continuity of Care Document ---
Author Name Unknown Organization [facility] Address [address] [place] [address]- Care Team Providers Care Bundling Machine Operator Name Role Phone Carmel Salguero MD Primary Care Physician Encounter [facility] Date(s): 03/22/22 - 04/21/22 [facility] [address] [place] [id number] Allergies, Adverse Reactions, Alerts No Known Allergies Immunizations Given and Recorded Vaccine Date Status Refusal Reason SARS-CoV-2 (COVID-19) mRNA BNT-162b2 vac 06/10/21 Recorded Influenza Virus Vaccine (oldterm) 09/07/19 Recorde d tetanus/diphtheria/pertussis, acel(Tdap) 1 05/16/13 Given 1Admin Note: 12/22/2011 Medications acetaminophen-HYDROcodone 325 mg-5 mg oral tablet 1-2 tablet, By Mouth, Every 6 hours, PRN for pain, May partial fill BS [id number], # 12 tablet, 0 Refills, Maintenance, 05/12/21 [...] 0 Refills, Maintenance, 09/13/21 12:29:00 EDT, Capsule, [facility]/pharmacy #[id number], 175, cm, 05/12/21 1:24:00 EDT, [...] tablet, 0 Refills, Maintenance, 02/26/22 20:57:00EDT, Tablet, [facility]/pharmacy #[id number], Partial fill upon patient request [...] Gm, 0 Refills, Maintenance, 09/13/21 12:29:00 EDT, [facility]/pharmacy #[id number], Partial fill upon patient request if the prescription is for a schedule II opioid drug., 2 puffs Inhalat... Start Date: 09/13/21 Status: Ordered SUMAtriptan 100 mg oral tablet See Instructions, TAKE 1 TABLET BY MOUTH ONCE, # 9 tablet, 4 Refills, Soft Stop, [facility] ST[facility] [id number], 175, cm, 07/09/19 15:48:00 EDT, Height, 113, [...]
--- OUTSIDE RECORDS SUMMARY | 2023-11-05 11:30 | XMS_ITS | Continuity of Care Document ---
Author Name Unknown Organization [facility] Address [address] [place] [id number]- Care Team Providers Care Auto Machinist Name Role Phone Noemy CHO, Carmel Castro Primary Care Physician Encounter [facility] Date(s): 03/20/22 - 04/19/[address] [id number]- Allergies, Adverse Reactions, Alerts No Known Allergies Immunizations Given and Recorded Vaccine Date Status Refusal Reason SARS-CoV-2 (COVID-19) mRNA BNT-162b2 vac 06/10/21 Recorded Influenza Virus Vaccine (oldterm) 09/07/19 Recorde d tetanus/diphtheria/pertussis, acel(Tdap) 1 05/16/13 Given 1Admin Note: 12/22/2011 Medications acetaminophen-HYDROcodone 325 mg-5 mg oral tablet 1-2 tablet, By Mouth, Every 6 hours, PRN for pain, May partial fill [id number], # 12 tablet, 0 Refills, Maintenance, 05/12/21 [...] 0 Refills, Maintenance, 09/13/21 12:29:00 EDT, Capsule, [facility]/pharmacy #[id number], 175, cm, 05/12/21 1:24:00 EDT, [...] tablet, 0 Refills, Maintenance, 02/26/22 20:57:00EDT, Tablet, [facility]/pharmacy #1234, Partial fill upon patient request [...] Gm, 0 Refills, Maintenance, 09/13/21 12:29:00 EDT, [facility]/pharmacy #[id number], Partial fill upon patient request if the prescription is for a schedule II opioid drug., 2 puffs Inhalat... Start Date: 09/13/21 Status: Ordered SUMAtriptan 100 mg oral tablet See Instructions, TAKE 1 TABLET BY MOUTH ONCE, # 9 tablet, 4 Refills, Soft Stop, [facility] ST[facility] [id number], 175, cm, 07/09/19 15:48:00 EDT, Height, 113, [...]
[2023-11-05] MEDS: Lactated Ringers 1,000 ML 150 ML IVCONT (12:12)
[2023-11-05] MEDS: Aprepitant 32 MG/4.4 ML VIAL IVPUSH (12:13)
--- NOTE | 2023-11-05 13:19 | PHA.MEDREC ---
Pharmacy Consult ? Medication Reconciliation Pharmacy has completed the medication reconciliation.
--- NOTE | 2023-11-05 17:51 | P.DS_ITS ---
DS: Providers Provider Date of Service: 11/06/23 Date of admission: 11/05/23 11:21 Primary care physician: Carmel Salguero MD DS: Summary Hospital Course Hospital Course: ADMITTING DIAGNOSIS: obesity, anxiety, corbin ? DISCHARGE DIAGNOSIS: same, s/p laparoscopic sleeve gastrectomy ? PAST SURGICAL HISTORY: tubal ligation, rhinoplasty, cesarian section ? PROCEDURE: upper endoscopy, laparoscopic sleeve gastrectomy ? DISCHARGE SUMMARY: ? History of Present Illness: ? The patient is a?33 year-old woman with a BMI of?37.6 kg/m2 and associated co- morbidities as described above. The patient had extensive work-up,lost?32.8 lbs preoperatively and was electively scheduled for laparoscopic, possible open sleeve gastrectomy and gastropexy. Risks and complications of the surgery were discussed with the patient in advance, particularly the possibility of , pulmonary embolism, anastomotic leak, bleeding, bowel injury, GERD, cardiac, renal or pulmonary complications. The patient understood all the risks and was in agreement with the surgical plan. ? Hospital Course: ? The patient underwent an uneventful laparoscopic sleeve gastrectomy with gastropexy on the day of admission. Postoperatively, the patient was transferred to the surgical floor. The patient received IV Acetaminophen and IV dilaudid for pain control. Patient was started on bariatric phase 1 diet POD #0. On postoperative day one, the patient was feeling well without nausea, vomiting, fevers, or tachycardia. The patient had some mild incisional pain and the abdomen was soft. ? On the morning of postoperative day one, the patient was continued on 1 ounce of water or ice every half hour. During the day, the patient did fairly well, having some incisional pain, but able to ambulate adequately and to tolerate liquids well. ? Since the patient is doing well, we decided that the patient was ready to be discharged. The patient was given instructions to follow-up with me next week and to call my office for any fever over 101, persistent abdominal pain, nausea, vomiting, GERD, symptoms of DVT such as calf tenderness, or leg swelling, or pulmonary embolism such as chest pain or shortness of breath. The patient was also instructed to drink 40-60 ounces of liquids per day using the 1-ounce cups. The patient had been given prescriptions for Tylenol for pain, Zofran prn for nausea, and pantoprazole and carafate previously. The patient was encouraged to ambulate and use the incentive spirometer. The patient was allowed to shower, but no baths, and encouraged to stay active at home. All of these instructions were given to the patient personally. All questions were answered and the patient understood all instructions, the instructions were also given to the patient in print. Time Attestation Discharge coordination time: Less than 30 minutes Quality: Safe Use of Opioids Does Pt have an Active Cancer Diagnosis on the Problem List?: No Quality: Stroke Does the patient have a stroke diagnosis?: No Physical Exam Vital Signs: Vital Signs: Last Vital Signs Temp 96.5 F L 11/05/23 11:58 Pulse 82 11/05/23 11:58 Resp 16 11/05/23 11:58 BP 108/63 11/05/23 11:58 Pulse Ox 98 11/05/23 11:58 O2 Del Method Room Air 11/05/23 11:58 BMI result Body Mass Index 31.6 DS: Data Data Completed and Pending Pending studies at discharge: Pending at discharge 11/05/23 17:28 Surgical [PTH] Routine Discharge Plan Discharge Anticipated Discharge Date/Time: 11/06/23 10:00 Patient Disposition: Home, Self-Care Discharge Diagnosis: s/p laparoscopic sleeve gastrectomy Referrals: Carmel Salguero MD [Primary Care Provider] - 1 Week Humza Strange MD, [facility], [facility] [Physician] - 1 Week Discharge Medications: Continued loratadine 10 mg tablet 10 mg PO DAILY ondansetron HCl 4 mg tablet 4 mg PO Q6H PRN (Reason: nausea and vomiting) Qty: 20 0RF pantoprazole 40 mg tablet,delayed release (DR/EC) 40 mg PO QAM 30 Days Qty: 30 2RF sucralfate 100 mg/mL suspension 10 ml PO BID 30 Days Qty: 600 2RF acetaminophen 500 mg/15 mL liquid 500 mg PO Q6H PRN (Reason: fever or pain) Qty: 237 2RF Discontinued polyethylene glycol 3350 [Miralax] 17 gram powder in packet See Rx Instructions PO DAILY Qty: 14 0RF Rx Instructions: Take 7 packets 2 days before surgery and 7 packets 1 day before surgery. Mix each packet with 8 oz's of water before surgery. Discharge Orders: Discharge Order (Routine); Ordered 11/06/23 Ordered By: Shin Wood Diet: Bariatric diet Activity on Discharge: No heavy lifting Stand Alone Forms: Patient Portal Discharge page Care Plan Goals: weight loss Health Concerns: obesity Plan of Treatment: YOU MUST NOT TAKE NAPROSYN/ALEVE OR [id number] MEDICINES EXCEPT FOR TYLENOL FOR PAIN. YOU MUST NOT TAKE OXYCODONE SINCE THIS WILL CAUSE NAUSEA AND CONSTIPATION AND INCREASE HER RISK FOR DEHYDRATION AND DEEP VEIN THROMBOSIS/FATA L PULMONARY EMBOLUS Follow the postoperative meal plan and hydration goals reviewed in the office and provided in writing. No tub baths, sex or returning to work until discussed at first post op a ppointment. No exercise, alcohol, tobacco or illegal drug use. Continue to use incentive spirometer hourly while awake. Walk in home for 5- 10 minutes every 2 hours during the first week. Follow all instructions in the bariatric handbook and call with any questions.Discharge Instructions 1. Please call your doctor or come back to the emergency room should any new symptoms arise. 2. You will receive a courtesy call from [facility] 24-48 hours after discharge. 3. Activity: abstain from alcohol, practice limited stair climbing, no bending, no driving, no exercise, no illicit substances, no lifting, no sex, no tub bath, no work. 4. Diet: continue as discussed with Dr. Strange. 5. Dressing Change/Wound Care: Your incision is covered by clear bandages and guaze underneath. If the area is tender, you may apply an ice pack for short intervals (no more than 20 minutes on, followed by at least 20 minutes off). Do not apply heat. Do not use creams, lotions, or topical antibiotics unless instructed to do so by your surgeon. These can cause infection or allergic reaction. 6. Call your doctor if: - Your temperature exceeds 101.5 F - You experience excessive pain or swelling - You have an unexpected reaction to medication - You have excessive bleeding - You experience continued vomiting/nausea - Your incision begins to separate - Your incision shows signs of infection such as increased redness, swelling, excessive pain, heat, or drainage (light blood or clear fluid is normal) 7. General instructions: No lifting greater than 5 lbs for 1 week and not more than 20lbs the next 3?weeks. No driving until seen at the office in 5-7 days after surgery. If you do not move your bowels in the next 2 days, please tell?Dr. Strange. Please walk around your home every hour or two to prevent blood clots from forming in your legs. You do not need to wake from sleeping to walk. Please sleep in a bed or couch to prevent kinking at the hips and knees. Please take your incentive spirometer (your lung back tender pulp drier) home with you and use it for the next few days to prevent pneumonia. You may shower, no hot tubs, baths or swimming pools.?Please follow the post op diet instructions you are?given by Dr Strange? and text me daily at 5-6pm for an update.?If you have any issues or concerns or questions please communicate this to him via text.? The Celebrate casey [employer]onnell have all of the bariatric vitamins you need if you consume these shakes. If you are drinking other protein shakes, you will need to purchase the Celebrate multivitamins and calcium that are available in the hospital gift shop on the first floor of the [facility].??Do not take anything without first discussing with Dr Strange. Please make sure you are consuming at least 40 ounces of fluids per day starting the?day AFTER your discharge from the hospital. Always drink 1- 2 ml per minute using the 5ml?syringe. If you drink faster you may experience?bloating,?gas pain, burping, nausea or heartburn. In that case please slow down your pace and use the syringe to?understand better the?proper?pace and volume of drinking. Do not hesitate to contact the office with any questions at . The patient's medical history has been reviewed and they are considered low risk for post op DVT and therefore DVT prophylaxis is not considered necessary. Travel after surgery was reviewed. The patient has not disclosed any travel plans during the first 30 days after surgery and they have been advised that within the first 30 days after surgery any bus, plane, train or car travel over 2 hours in duration is contraindicated due to the possibility of developing blood clots from immobility. Any travel, needs to include periods of ambulation of 10 minutes in duration every 2 hours.? The patient was instructed to discuss any plans for travel during this period with their bariatric surgeon. Assessment: stable s/p laparoscopic sleeve gastrectomy
[2023-11-05 18:26] LABS: Hematocrit 42.5 % (37.0-47.0)
[2023-11-05 18:44] LABS: Anion Gap 22 (12-20); Blood Urea Nitrogen 11 mg/dL (9-16); Calcium 8.7 mg/dL (8.4-10.2); Carbon Dioxide 14 mmol/L (22-29); Chloride 107 mmol/L (96-108); Creatinine Clr Calc Pharmacy 131.6; Estimated Glomerular Filt Rate > 60; Glucose Random 83 mg/dL (60-115); Potassium 4.1 mmol/L (3.3-5.1); Sodium 139 mmol/L (135-145)
[2023-11-05] MEDS: Lactated Ringers 1,000 ML 100 ML IVCONT (19:37)
[2023-11-05] MEDS: HYDROmorphone HCl 0.5 MG/0.5 ML SYRINGE 0.25 MG IVPUSH (20:17)
[2023-11-05] MEDS: Metoclopramide HCl 10 MG/2 ML VIAL IVPUSH (20:17)
[2023-11-05] MEDS: Famotidine/PF 20 MG/2 ML VIAL IVPUSH (20:17)
[2023-11-05] MEDS: 0.9 % Sodium Chloride Flush 3 ML SYRINGE IVFLUSH (20:18)
[2023-11-05] MEDS: ceFAZolin Sodium/Dextrose,Iso 2 GM/50 ML PIGGYBACK IV (21:20)
[2023-11-05] MEDS: Acetaminophen 1,000 MG/100 ML PIGGYBACK 16.7 MG IV (22:56)
[2023-11-06] MEDS: HYDROmorphone HCl 0.5 MG/0.5 ML SYRINGE 0.25 MG IVPUSH (03:25)
[2023-11-06 04:00] VITALS: BP 134/80; PULSE 80; RESP 16; TEMP 36.8; O2SAT 99
[2023-11-06] MEDS: Lactated Ringers 1,000 ML 100 ML IVCONT (05:06)
[2023-11-06] MEDS: Acetaminophen 1,000 MG/100 ML PIGGYBACK 16.7 MG IV ×2 (05:06→11:04)
[2023-11-06 06:49] LABS: MANUAL DIFF FLAG NO
[2023-11-06 06:54] LABS: Basophils Percent Auto 0.2 % (0-2); Eosinophils Percent Auto 0.1 % (0-4); Hematocrit 43.3 % (37.0-47.0); Hemoglobin 14.1 g/dl (12.0-16.0); Imm Gran Abs Auto 0.06 X10*3/uL (0.00-0.03); Imm Gran Pct Auto 0.5 % (0.0-0.4); Lymphocytes Absolute Auto 1.1 X10*3/uL (1.2-4.9); Lymphocytes Percent Auto 8.6 % (20-40); Mean Corpuscular HGB Conc 32.6 g/dl (31.0-35.0); Mean Corpuscular Volume 92.1 fL (80.0-98.0); Mean Platelet Volume 9.7 fL (9.4-12.3); Monocytes Absolute Auto 0.7 X10*3/uL (0.1-1.2); Monocytes Percent Auto 5.5 % (2-11); Neutrophils Absolute Auto 10.8 x10*3/uL (2.0-8.3); Neutrophils Percent Auto 85.1 % (45-73); Platelet Count 377 X10*3/uL (160-400); Red Cell Distribution Width 12.8 % (11.0-16.0); White Blood Count 12.7 X10*3/uL (4.8-10.8)
--- NOTE | 2023-11-06 07:06 | PM.PNGS ---
Subjective Subjective Date of Service: 11/06/23 Patient reports: still having pain and tolerating liquids well Interval history: The patient reports incisional pain and some nausea but denies any vomiting. She notes that she is tolerating water and denies any GERD, regurgitation, and denies shortness of breath. She had questions regarding the use of Naprosyn again as well as her home prescription for oxycodone and Flexeril which we again reviewed that I do not recommend using these medicines since they can cause significant, potentially fatal complications. Physical Exam Vital Signs: Vital Signs: Last Vital Signs Temp 98.2 F 11/06/23 04:00 Pulse 80 11/06/23 04:00 Resp 16 11/06/23 04:00 BP 134/80 11/06/23 04:00 Pulse Ox 99 11/06/23 04:00 O2 Del Method Room Air 11/06/23 04:00 O2 Flow Rate 1 11/05/23 20:00 BMI result Body Mass Index 31.6 On exam she is nontoxic She is having no respiratory distress Expected abdominal pain/incisional tenderness with no peritoneal sign is demonstrated on today's exam Objective Data Active Medications Famotidine (Famotidine/Pf 20 Mg/2 Ml Vial) 20 mg IVPUSH BID [facility] Last Admin: 11/05/23 20:17 Dose: 20 mg Documented By: MARCEL Fentanyl (Fentanyl Citrate/Pf 100 Mcg/2 Ml Vial) 50 mcg IVPUSH Q5M PRN; Protocol PRN Reason: Pain, Severe (Pain Scale 7-10) Hydromorphone HCl (Hydromorphone Hcl 0.5 Mg/0.5 Ml Syringe) 0.5 mg IVPUSH Q5M PRN; Protocol PRN Reason: Pain, Severe (Pain Scale 7-10) Hydromorphone HCl (Hydromorphone Hcl 0.5 Mg/0.5 Ml Syringe) 0.25 mg IVPUSH Q4H PRN; Protocol PRN Reason: Pain, Moderate(Pain Scale 4-6) Last Admin: 11/06/23 03:25 Dose: 0.25 mg Documented By: MARCEL Comments: downtime Lactated Ringer's (Lr) 1,000 mls @ 100 mls/hr IVCONT .Q10H [facility] Last Admin: 11/06/23 05:06 Dose: 100 mls/hr Documented By: MARCEL Acetaminophen (Ofirmev) 1,000 mg in 100 mls @ 16.7 mls/hr IV .Q6H [facility] Last Admin: 11/06/23 05:06 Dose: 16.7 mls/hr Documented By: MARCEL Loratadine (Loratadine 10 Mg Tablet) 10 mg PO DAILY [facility] Metoclopramide HCl (Metoclopramide Hcl 10 Mg/2 Ml Vial) 10 mg IVPUSH Q6H PRN PRN Reason: Nausea Last Admin: 11/05/23 20:17 Dose: 10 mg Documented By: MARCEL Ondansetron HCl (Ondansetron Hcl 4 Mg/2 Ml Vial) 4 mg IVPUSH ONCE PRN PRN Reason: Nausea and Vomiting Ondansetron HCl (Ondansetron Hcl 4 Mg/2 Ml Vial) 4 mg IVPUSH Q8H PRN PRN Reason: Nausea Sodium Chloride (0.9 % Sodium Chloride Flush 3 Ml Syringe) 3 ml IVFLUSH QSHIFT [facility] Last Admin: 11/05/23 20:18 Dose: 3 ml Documented By: MARCEL Labs 11/06/23 06:28 11/05/23 18:21 Labs: Laboratory Results - last 24 hr 11/05/23 11/06/23 18:21 06:28 MCV 92.1 MCH 30.0 MCHC 32.6 RDW 12.8 Plt Count 377 MPV 9.7 Immature Gran % (Auto) 0.5 H Neut % (Auto) 85.1 H Lymph % (Auto) 8.6 L [place] % (Auto) 5.5 Eos % (Auto) 0.1 Baso % (Auto) 0.2 Lymph # (Auto) 1.1 L [place] # (Auto) 0.7 Eos # (Auto) 0.0 Baso # (Auto) 0.0 Abs Immat Gran (auto) 0.06 H Absolute Neuts (auto) 10.8 H Absolute Nucleated RBC 0.000 Nucleated RBC % (auto) 0.0 Anion Gap 22 H Estim Creat Clear Calc 131.6 Estimated GFR > 60 Random Glucose 83 Calcium 8.7 D Procedures Date of Service Date of Service: 11/06/23 Progress Note: A&P Assessment and plan (1) S/P laparoscopic sleeve gastrectomy: Status: Acute (2) Generalized anxiety disorder: Status: Acute (3) Non-restorative sleep: Status: Acute (4) BHANU (obstructive sleep apnea): Status: Acute Plan Written instructions regarding diet and postoperative meal plan were provided to the patient and verbally reviewed. Patient was again instructed to avoid Naprosyn and all NSAIDs, narcotics and muscle relaxants. Her hemoglobin is stable, however her electrolytes are still pending. Continue to work on hydration and ambulation. Will reassess for discharge later this morning. Time Spent With Patient Time: Total time managing care of this patient today ____ minutes. Quality Stroke Does the patient have a stroke diagnosis?: No VTE Prior VTE?: No VTE Risk Level:: Surgical - moderate VTE Device Contraindication: N/A - Device Ordered VTE Drug Contraindication: Treatment Not Indicated
[2023-11-06 07:13] LABS: Anion Gap 18 (12-20); Blood Urea Nitrogen 8 mg/dL (9-16); Calcium 8.8 mg/dL (8.4-10.2); Carbon Dioxide 15 mmol/L (22-29); Chloride 109 mmol/L (96-108); Creatinine Clr Calc Pharmacy 113.2; Estimated Glomerular Filt Rate > 60; Glucose Random 130 mg/dL (60-115); Potassium 4.9 mmol/L (3.3-5.1); Sodium 137 mmol/L (135-145)
[2023-11-06 07:24] VITALS: BP 137/75; PULSE 64; RESP 16; TEMP 36.1; O2SAT 99
[2023-11-06] MEDS: Famotidine/PF 20 MG/2 ML VIAL IVPUSH (08:48)
[2023-11-06] MEDS: Loratadine 10 MG TABLET PO (08:48)
--- NOTE | 2023-11-06 08:55 | HO.POSTANES ---
Post Anesthesia Evaluation Post Anesthesia Evaluation Date of Service: 11/06/23 Vital Signs: Vital Signs Temp Pulse Resp BP Pulse Ox O2 Del Method 11/06/23 07:24 96.9 F 64 16 137/75 99 Room Air 11/06/23 04:00 98.2 F 80 16 134/80 99 Room Air 11/05/23 23:58 98.2 F 66 18 135/75 98 Room Air 11/05/23 23:27 98.5 F 93 16 141/92 H 98 Room Air Anesthesia: General Endotracheal-GETA Mental Status: Awake Pain Control: Satisfactory Nausea/Vomiting: None Hydration: Adequate Anesthesia-Related Issues: No Anes. Related Issues
--- NOTE | 2023-11-06 09:29 | MHC.CM.PN ---
Addendum entered by Tomeka Galaviz RN 11/06/23 13:23: MEDICALLY CLEARED FOR DC. MOTHER WILL TRANSPORT HOME AROUND 3PM. RN AWARE. Original Note: IMM DELIVERED. PATIENT FROM HOME WITH YOUNG CHILDREN. INDEPENDENT, NO SERVICES OR EQUIPMENT. PCP: DAYDAY ARAIZA MD HCP: CM COMPLETED WITH PATIENT. PATIENT NAMED MOTHER JUAN AGENT DCP: HOME, SELF CARE, MOTHER TO TRANSPORT. POTENTIAL DC THIS AFTERNOON. CM WILL CONTINUE TO FOLLOW.
[2023-11-06] MEDS: ondansetron HCL 4 MG/2 ML VIAL IVPUSH (11:04)
[2023-11-06 11:30] VITALS: BP 121/69; PULSE 69; RESP 16; O2SAT 99
== END 2023-11-06 14:56 | disposition home or self-care (01) | DRG 621 ==
LOC: HO.SSSA 11:22 → HO.S3 17:48
PROVIDERS: Physician Assistant Surgical; Admitting Provider Surgery; PCP Internal Medicine; Visit Provider Surgery
PROC: 0DB64Z3 Excision of Stomach, Percutaneous Endoscopic Approach, Vertical (ICD-10-PCS; CPT 43845; principal; 2023-11-05 13:10)
DX: E66.01 Morbid (severe) obesity due to excess calories (principal); G47.33 Obstructive sleep apnea (adult) (pediatric); F41.1 Generalized anxiety disorder; Z91.199 Patient's noncompliance with other medical treatment and regimen due to unspecified reason; Z68.31 Body mass index [BMI] 31.0-31.9, adult; Z79.899 Other long term (current) drug therapy
CPT/HCPCS: 36415; 80048; 85014; 85018; 85025; 86850; 86900; 86901; 88307; 88342; 99024; C9145; J0131; J0665; J0690; J1100; J1170; J2250; J2405; J2550; J2704; J2765; J3010; J7120

== ENCOUNTER → 2023-11-05 11:21 | Outpatient (BNV) | payer OTHER, SELFPAY | PROVIDERS: Admitting Provider Surgery; PCP Internal Medicine; Visit Provider Surgery | DX: E66.9 Obesity, unspecified (principal); Z68.33 Body mass index [BMI] 33.0-33.9, adult; Z90.3 Acquired absence of stomach [part of]; Z98.84 Bariatric surgery status | CPT/HCPCS: 43659; 43775; 99024 ==

== ENCOUNTER 2023-11-13 10:46 | Outpatient (AMB) | payer OTHER, SELFPAY ==
--- NOTE | 2023-11-13 11:16 | A.OFFVIS_ITS ---
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 She is 8 days status post sleeve gastrectomy performed on 11/05/[address] Strange. She is tolerating 3 celebrate 4 in 1 shakes with 1 scoop each and a total of approximately 40-45 oz of fluids. She has moved her bowels. She did have some initial difficulty with the pace of drinking but this has now improved. Pain has improved and she is no longer requiring Tylenol. PFSH Surgical History Hx of laparoscopic partial gastrectomy Hx of tubal ligation Hx of rhinoplasty Hx of section Social History Household Members: Family Housing: House Do you presently have visiting nurse or other home services: No Alcohol intake: never Patient Tobacco Use Status: Never used Tobacco service: No Physical Exam Vital Signs: Last Vital Signs Temp 96.7 F L 11/13/23 11:28 Pulse 80 11/13/23 11:28 BP 121/59 L 11/13/23 11:28 Pulse Ox 95 11/13/23 11:28 Oxygen Delivery Method Room Air 11/13/23 11:28 BMI result Body Mass Index 31.0 GI Inspection: Yes incision (c/d/i) Assessment & Plan Assessment & Plan (1) S/P laparoscopic sleeve gastrectomy: Code(s): Z98.84 - Bariatric surgery status Plan: POD 8 s/p LSG on 11/05/[address] Strange Weight loss prior to surgery was 32.8 pounds or 13.2 % TBWL. Original weight on 08/16/2023 was 247.2 pounds and op weight was 214.4 pounds. Change meal plans slightly to use 1.5 scoops of protein powder with 8 oz of water each and 1 shake with 1 scoop utilizing almond milk Continue meal plan until f/u w Leonila in 2 weeks May shower, no submersion in bath for another week Continue abdominal binder with activity and exercise for the next 2 weeks. Exercise prior to surgery was elliptical, treadmill, march, walking resume treadmill and walking No abdominal exercises for 6 weeks post operatively Will be emailed link to post op video for review Reminded of the pace of drinking, 2 mL per minute, 1 oz/15 min. Coding Level of Care Code Global (29908) Diagnoses S/P laparoscopic sleeve gastrectomy Z98.84
[2023-11-13 11:28] VITALS: BP 121/59; PULSE 80; TEMP 35.9; O2SAT 95; BMI 31.0
== END 2023-11-13 12:44 | disposition home or self-care (01) ==
PROVIDERS: PCP Internal Medicine; Visit Provider Physician Assistant Surgical
DX: Z98.84 Bariatric surgery status (principal)
CPT/HCPCS: 99024

== ENCOUNTER → 2023-11-13 10:46 | Outpatient (BNVA) | payer OTHER, SELFPAY | PROVIDERS: PCP Internal Medicine; Visit Provider Physician Assistant Surgical | DX: Z98.84 Bariatric surgery status (principal) | CPT/HCPCS: 99212 ==

== ENCOUNTER 2023-12-12 12:30 | Outpatient (AMB) | payer OTHER, SELFPAY ==
--- NOTE | 2023-12-12 12:37 | MHC.OFFVISWM ---
Intake VS Expanded 12/12/23 12:42 Height 5 ft 8 in Weight 201 lb BMI 30.6 Intake Visit Reasons: (TELEPHONE) PO LSG 11/05/23 Allergies No Known Allergies Allergy (Verified 11/13/23 11:16) Medication List - Last Reconciled 12/12/23 by ASTRID Gavin loratadine 10 mg PO DAILY pantoprazole 40 mg PO QAM 30 days sucralfate 10 mL PO BID 30 days HPI HPI Comments History of Present Illness Details This?is a?33?yo female who is s/p LSG 11/05/2023. Presents for 5 week post op visit. Weight at last visit on 11/13/2023 was pounds with a BMI of 31, weight today is 201 pounds, representing a 3 pound weight loss with a BMI today of 30.6.? No complaints of nausea, emesis, abdominal pain or reflux, or constipation. Taking PPI/carafate. Present meal plan includes: 3 celebrate 4 in 1 shakes with 1.5 scoops in 2 shakes and 1 scoop in 1 shake had a few bites of food Exercise routine includes: walking, occasional home videos PFSH Surgical History Hx of laparoscopic partial gastrectomy Hx of tubal ligation Hx of rhinoplasty Hx of section Social History Household Members: Family Housing: House Do you presently have visiting nurse or other home services: No Alcohol intake: never Patient Tobacco Use Status: Never used Tobacco service: No Assessment & Plan Assessment & Plan (1) S/P laparoscopic sleeve gastrectomy: Code(s): Z98.84 - Bariatric surgery status (2) Obesity: Code(s): E66.9 - Obesity, unspecified Plan Pt wants to start solid food. New meal plan: 8-10am Celebrate shake with 2 scoops in 8oz unsweetened almond milk 12pm 2 forkfuls protein- soft solid protein like scrambled eggs or Malay yogurt 2-4 shake 6pm protein bar Discussed the importance of exercise to help with ongoing weight loss. Pt has a neighbor/friend who has offered to come over after her kids are in bed so she can go to the gym. Goal 2000 calories burned per week. Can take hair/skin/nails supplement. At next appointment pt expressed interest in changing to premade Premier shakes, discussed that she would have to restart a MVI and may have to mix premade shakes with some almond milk to ensure appropriate protein amounts. Meal plan texted to pt. RTC in 2 weeks, encouraged her to reach out between appts with any questions. Patient is obese and is not considered stable at this time. I spent a total of 30 minutes reviewing/updating records, examining the patient and counseling the patient on weight management as detailed above. Telehealth Telehealth Location of provider rendering services: practice address Location of patient: address on file Patient Identification confirmed using: Name, : Yes Telehealth method: voice only Patient verbally consented to treatment: Yes Patient verbally consented to billing insurance company: Yes Patient informed of any privacy concerns related to visit: Yes Minutes spent on Phone/Video with Pt.: 15 Coding Level of Care Code Tele Est Pt Level 4 (53151) Diagnoses S/P laparoscopic sleeve gastrectomy Z98.84 Obesity E66.9
[2023-12-12 12:42] VITALS: BMI 30.6
== END 2023-12-12 13:13 | disposition home or self-care (01) ==
LOC: HO.HBS 12:59
PROVIDERS: PCP Internal Medicine; Visit Provider Physician Assistant Surgical
DX: E66.9 Obesity, unspecified (principal); Z98.84 Bariatric surgery status; Z90.3 Acquired absence of stomach [part of]; Z68.30 Body mass index [BMI] 30.0-30.9, adult
CPT/HCPCS: 99024

== ENCOUNTER → 2023-12-12 12:30 | Outpatient (BNVA) | payer OTHER, SELFPAY | PROVIDERS: PCP Internal Medicine; Visit Provider Physician Assistant Surgical | DX: E66.9 Obesity, unspecified (principal); Z68.30 Body mass index [BMI] 30.0-30.9, adult; Z98.84 Bariatric surgery status | CPT/HCPCS: 99212 ==

== ENCOUNTER 2024-01-28 14:28 | Outpatient (AMB) | payer OTHER, SELFPAY ==
[2024-01-28 13:11] VITALS: BMI 29.6
--- NOTE | 2024-01-28 13:11 | A.OFFVIS_ITS ---
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 Strange. Presents for 2.5 month post op visit. Weight today is 194.6 pounds, w ith a BMI of 29.6. There has been a 52.6 pound weight loss,(initial weight 247.2 pounds) since starting the program on 08/16/2023 reflecting a 21.2% total body weight loss and a weight loss of 19.8 pounds since surgery (operative weight 214.4 pounds) reflecting a 9.2% TBWL since surgery. No complaints of nausea, emesis, abdominal pain or reflux. Reports infrequent but normal bowel movements every 1-2 days. She stopped the sucralfate after about 6 weeks. Present meal plan includes: Premier protein rtd 8-9 1 egg w fruit, noon 1/2 cheese stick and 2 crackers, apple, 1 pm sweet itialian roll w tam, dressing ham and cheese Drinking 60 oz water, 1/2 glass zero sugar juice ? Exercise routine includes: PF, 3 x per week, weights 30 min, treadmill, elliptical, (300 calories) PFSH Surgical History Hx of laparoscopic partial gastrectomy Hx of tubal ligation Hx of rhinoplasty Hx of section Social History Household Members: Family Housing: House Do you presently have visiting nurse or other home services: No Alcohol intake: never Patient Tobacco Use Status: Never used Tobacco service: No Assessment & Plan Assessment & Plan (1) S/P laparoscopic sleeve gastrectomy: Code(s): Z98.84 - Bariatric surgery status Plan: Patient not following a strict meal plan. Will adjust. Premier protein ready to drink 30 g shake, half with an additional 2 oz unsweetened almond milk at 8-10. 2 eggs with 2 4 coils of mixed vegetables at noon or a Urdu yogurt The other half of her shake at 2-4 Meal at 05:30, 6 forks of protein and 6 forks of cooked vegetables (she may have salad or evolve vegetables after February 03) Increase calories burned at the gym for a goal of 2000 per week. Return to clinic 1 month Recommend start bariatric multivitamin and calcium plus D. Telehealth Telehealth Location of provider rendering services: practice address Location of patient: address on file Patient Identification confirmed using: Name, : Yes Telehealth method: voice only Patient verbally consented to treatment: Yes Patient verbally consented to billing insurance company: Yes Patient informed of any privacy concerns related to visit: Yes Minutes spent on Phone/Video with Pt.: 15 Coding Level of Care Code Global (31951) Diagnoses S/P laparoscopic sleeve gastrectomy Z98.84
== END 2024-01-28 15:02 | disposition home or self-care (01) ==
LOC: HO.HBS 14:29
PROVIDERS: PCP Internal Medicine; Visit Provider Physician Assistant Surgical
DX: Z98.84 Bariatric surgery status (principal)
CPT/HCPCS: 99024

== ENCOUNTER → 2024-01-28 14:28 | Outpatient (BNVA) | payer OTHER, SELFPAY | PROVIDERS: PCP Internal Medicine; Visit Provider Physician Assistant Surgical | DX: Z48.815 Encounter for surgical aftercare following surgery on the digestive system (principal); Z98.84 Bariatric surgery status | CPT/HCPCS: 99212 ==

== ENCOUNTER 2024-05-06 09:59 | Outpatient (AMB) | payer OTHER, SELFPAY ==
--- NOTE | 2024-05-06 10:01 | A.OFFVIS_ITS ---
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 Denies any recent or past trauma, injury or falls. Patient has 2 years old twins and older child and reports low back pain throughout her pregnancies. She went to [facility] multiple times withing the past 2-3 months for flare up in her back pain with radiation into her right lateral hip, right anterior thigh and adair without numbness or tingling. Bending and flexing forward reproduces moderate-severe symptoms as well as most movements, lifting, twisting, or walking. Patient avoids NSAIDs due to previous bariatric surgery, and has tried Tylenol, Flexeril, morphine and Medrol yves with continued symptoms. She reports significant pain relief from 8-10/10 down to 3/10 with Medrol Yves for one week, completed 1 week ago. Pain is constant and rated at 8/10. She underwent PT evaluation last week and starts her first session today but concerned with participation in PT due to significant pain with any movement. Pain affects her daily activities, functioning, mobility, caring for her children, house chores, sleep, mood and social interactions. Denies any fever, abdominal or groin pain, weakness, foot drop, bladder or bowel dysfunction or saddle anesthesia. Oswestry Low Back Disability Score=27 (severe disability) Location: Lower back pain radiates down right lateral hip, anterior thigh and adair Duration: Chronic pain, on and off for many years, worsening for past 2-3 months Characteristics of symptom or complaint: Sharp, shooting throbbing, stabbing, aching, spasming, tiring Aggravating or associated factors: Any movement, sitting, bending, lifting, walking, twisting, pulling Relieving factors: Sitting, laying, morphine 1/2 tab at night, Tylenol ER, Flexeril, Medrol Treatment: PT started 1 week ago, sleeve gastrectomy (BMI>37 prior to surgery) [facility] Medical History (Updated 05/06/24 @ 11:07 by DIANA Mendoza) Polyarthralgia Plantar fasciitis, left Pelvic pain Ovarian cyst BHANU (obstructive sleep apnea) Morbid obesity Left lumbar radiculopathy Left knee pain Hemangioma Congenital vascular abnormality Low back pain Generalized anxiety disorder Surgical History (Updated 05/06/24 @ 11:08 by DIANA Mendoza) History of bunionectomy Hx of laparoscopic partial gastrectomy Hx of tubal ligation Hx of rhinoplasty Hx of section Social History Household Members: Family Housing: House Do you presently have visiting nurse or other home services: No Alcohol intake: never Patient Tobacco Use Status: Never used Tobacco service: No Review of Systems Const All systems reviewed & are unremarkable except as noted in HPI and below Reports as per HPI, Denies body aches, Denies chills, Reports difficulty sleeping, Reports fatigue, Denies fever(s), Denies frequent falls, Denies headache(s), Denies malaise, Denies night sweats, Denies weakness and Reports weight loss (s/p sleeve gastrectomy 10/2023) ENT Denies headache(s) Neuro Denies frequent falls, Denies headache(s) and Denies weakness Endo Reports fatigue Physical Exam Vital Signs: Last Vital Signs Pulse 91 05/06/24 10:05 BP 127/68 05/06/24 10:05 Pulse Ox 99 05/06/24 10:05 Oxygen Delivery Method Room Air 05/06/24 10:05 BMI result Body Mass Index 28.3 General: Appears afebrile. Alert and oriented. Mood and affect appropriate. Follows and participates in conversation appropriately. Respiratory effort is unlabored. No cough. Able to transition from sit to stand unassisted. Ambulates with bilaterally normal heel strike and toe off, reports increased RLE pain with walking or bending. General: Yes no CVA tenderness Back/Spine/Pelvis Other: Limited lumbar ROM due to pain. Good motor tone. Antalgic gait. No limping. Can flex forward to 60-65 degrees and extend to 5-10 degrees before experiencing lumbar pain, worse pain with bending and flexing forward. Demonstrates 5/5 strength of quadriceps bilaterally as well as flexion/dorsiflexion of bilateral feet against resistance. 2+ pedal pulses bilaterally. Seated straight leg rise with dorsiflexion positive on the right. +2 patellar and achilles reflexes bilaterally. No clonus. Facet loading test positive bilaterally. Betty sign, Rogelio?s, [place], Pelvic compression and Stinchfield tests are positive on the right, equivocal on the left. No groin pain with I/E hip rotations. Significant paraspinals tenderness mid and lower back. Valsalva maneuver negative. Back: no CVA tenderness Cervical Spine: cervical ROM normal, cervical muscular tenderness, No Cervical spine scars present and No Cervical spine tenderness Thoracic/Lumbar Spine: thoracic and lumbar spine normal to inspection, No Thoracic/lumbar spine scar(s), Lasegue's sign positive on the right and localized, pain with thoraco-lumbar ROM, paraspinal muscle tenderness, thoraco- lumbar ROM limited, No thoracic spinal tenderness and lumbar spinal tenderness at L4 and at L5 Pelvis: buttock tenderness on the right and no sciatic notch tenderness Sacroiliac joints: bilaterally tender to palpation Extrem General: Yes capillary refill normal, Yes no clubbing, cyanosis or edema and Yes no calf tenderness Results Reviewed Results Reviewed: Assessment & Plan Assessment & Plan (1) Lumbar disc herniation with radiculopathy: Code(s): M51.16 - Intervertebral disc disorders with radiculopathy, lumbar region Category: Medical (2) Lumbosacral spondylosis: Code(s): M47.817 - Spondylosis without myelopathy or radiculopathy, lumbosacral region Category: Medical (3) Sacroiliac joint pain: Code(s): M53.3 - Sacrococcygeal disorders, not elsewhere classified Category: Medical (4) Lumbosacral spondylosis: Code(s): M47.817 - Spondylosis without myelopathy or radiculopathy, lumbosacral region Category: Medical (5) Lumbar disc herniation with radiculopathy: Code(s): M51.16 - Intervertebral disc disorders with radiculopathy, lumbar region Category: Medical (6) Muscle spasm of back: Code(s): M62.830 - Muscle spasm of back Category: Medical (7) Low back pain: Code(s): M54.50 - Low back pain, unspecified Category: Medical Plan Patient's low back pain presents with discogenic, SIJ and lumbar herniation pain components. We will proceed with lumbar spine xray and MRI to assess degree of degenerative changes, any subluxation, listhesis, compression fractures or pars defects, neural integrity and compression. Patient is starting first physical therapy session today after initial PT evaluation last week. She is aware to avoid pain producing activities, heavy lifting or strenuous exercise activities. Patient has stopped cyclobenzaprine (Flexeril) due to excessive sedative effect and will trial baclofen. Script provided for baclofen and Salonpas patches. Side effects and precautions were discussed with patient. Patient is aware to call if pain worsens or if she develops any red flag symptoms to seek emergency care. Patient denies any cauda equina syndrome symptoms at this time. All questions and concerns have been answered. Patient will return to the clinic to discuss results of the MRI/xray findings when it is done and consider interventional therapy as indicated.? Orders: Orders 2 XR lumbar spine 4V min Today M47.817 - Spondylosis without myelopathy or radiculopathy, lumbosacral region, M51.16 - Intervertebral disc disorders with radiculopathy, lumbar region XR sacroiliac joint min 3V Today M47.817 - Spondylosis without myelopathy or radiculopathy, lumbosacral region, M53.3 - Sacrococcygeal disorders, not elsewhere classified MR lumbar spine wo con Today M47.817 - Spondylosis without myelopathy or radiculopathy, lumbosacral region, M51.16 - Intervertebral disc disorders with radiculopathy, lumbar region Medications: New 2 baclofen 10 mg PO BID 30 days 60 tabs 0RF muscle spasms M47.817 - Spondylosis without myelopathy or radiculopathy, lumbosacral region, M51.16 - Intervertebral disc disorders with radiculopathy, lumbar region, M62.830 - Muscle spasm of back camphor-methyl salicyl-menthol 3.1-10-6 % (Salonpas) may leave on area for up to 8 hrs 1 patch topical BID-TID 7 days PRN 20 ea 0RF pain M47.817 - Spondylosis without myelopathy or radiculopathy, lumbosacral region, M51.16 - Intervertebral disc disorders with radiculopathy, lumbar region, M54.50 - Low back pain, unspecified Coding Level of Care Code New Pt Level 4 (91239) Diagnoses Lumbar disc herniation with radiculopathy M51.16 Lumbosacral spondylosis M47.817 Sacroiliac joint pain M53.3 Muscle spasm of back M62.830 Low back pain M54.50
[2024-05-06 10:05] VITALS: BP 127/68; PULSE 91; O2SAT 99; BMI 28.3
== END 2024-05-06 10:38 | disposition home or self-care (01) ==
PROVIDERS: PCP Internal Medicine; Visit Provider Nurse Practitioner Family
DX: M51.16 Intervertebral disc disorders with radiculopathy, lumbar region (principal); M47.817 Spondylosis without myelopathy or radiculopathy, lumbosacral region; M53.3 Sacrococcygeal disorders, not elsewhere classified; M62.830 Muscle spasm of back; M54.50 Low back pain, unspecified
CPT/HCPCS: 99204

== ENCOUNTER → 2024-05-06 09:59 | Outpatient (BNVA) | payer OTHER, SELFPAY | PROVIDERS: PCP Internal Medicine; Visit Provider Nurse Practitioner Family | DX: M51.16 Intervertebral disc disorders with radiculopathy, lumbar region (principal); M47.817 Spondylosis without myelopathy or radiculopathy, lumbosacral region; M53.3 Sacrococcygeal disorders, not elsewhere classified; M62.830 Muscle spasm of back; M54.50 Low back pain, unspecified | CPT/HCPCS: 99202 ==

== ENCOUNTER 2024-06-24 12:34 | Outpatient (REF) | payer OTHER, SELFPAY ==
--- NOTE | ~2024-06-24 | MR_ITS ---
EXAMINATION: MR LUMBAR SPINE WITHOUT CONTRAST CLINICAL INFORMATION: Spondylosis without myelopathy or radiculopathy COMPARISON: None available. TECHNIQUE: MRI of the lumbar spine was obtained using routine sequences without contrast. FINDINGS: There are 5 nonrib-bearing lumbar-type vertebrae. Slight straightening of the normal lumbar lordosis. No listhesis. No acute bone marrow abnormality. The vertebral body heights are preserved. The disc spaces are also preserved. The visualized spinal cord is normal in caliber. No abnormal cord signal. The conus medullaris terminates at L1. T12-L1: No significant spinal canal or neural foraminal narrowing. L1-2: No significant spinal canal or neural foraminal narrowing. L2-3: No significant spinal canal or neural foraminal narrowing. L3-4: Bilateral facet arthrosis. No significant spinal canal or neural foraminal narrowing. L4-5: Bilateral facet arthrosis. No significant spinal canal stenosis. Mild bilateral neural foraminal narrowing. L5-S1: 4 mm extracanalicular synovial cyst abutting the right facet joint. Bilateral facet arthrosis. No significant spinal canal stenosis. Mild left neural foraminal narrowing. The paravertebral soft tissues are unremarkable. MR/MR lumbar spine wo con IMPRESSION: Bilateral facet arthrosis from L3 to S1. Mild neural foraminal narrowing is seen bilaterally at L4-L5 and on the left at L5-S1. A 4 mm extracanalicular synovial cyst is seen on the right at L5-S1.
== END 2024-06-24 12:35 | disposition home or self-care (01) ==
LOC: HO.MRI 12:34
PROVIDERS: PCP Internal Medicine; Visit Provider Nurse Practitioner Family
DX: M47.817 Spondylosis without myelopathy or radiculopathy, lumbosacral region (principal); M51.16 Intervertebral disc disorders with radiculopathy, lumbar region
CPT/HCPCS: 72148

== ENCOUNTER 2024-07-03 09:34 | Outpatient (AMB) | payer OTHER, SELFPAY ==
--- NOTE | 2024-07-03 09:34 | MHC.OFFVIS ---
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 Patient denies any recent cough, cold, infection, fever or other significant changes in medical history since last office visit except recent review of her cervical spine MRI at [facility] [place] and plans to undergo injections for C3-C4 disc bulges. She reports cervical spine MRI was completed at [facility]. Patient has tried liquid turmeric from [employer] with partial pain relief. Reports axial low back pain without significant radicular symptoms today. She is concerned if she has rheumatoid arthritis as she has strong family history of RA on her maternal side and would like to undergo baseline lab work to rule out inflammatory arthritis. Denies any weakness, foot drop, bladder or bowel dysfunction, or saddle anesthesia. 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 Denies any recent or past trauma, injury or falls. Patient has 2 years old twins and older child and reports low back pain throughout her pregnancies. She went to [place] [facility] multiple times withing the past 2-3 months for flare up in her back pain with radiation into her right lateral hip, right anterior thigh and adair without numbness or tingling. Bending and flexing forward reproduces moderate-severe symptoms as well as most movements, lifting, twisting, or walking. Patient avoids NSAIDs due to previous bariatric surgery, and has tried Tylenol, Flexeril, morphine and Medrol yves with continued symptoms. She reports significant pain relief from 8-10/10 down to 3/10 with Medrol Yves for one week, completed 1 week ago. Pain is constant and rated at 8/10. She underwent PT evaluation last week and starts her first session today but concerned with participation in PT due to significant pain with any movement. Pain affects her daily activities, functioning, mobility, caring for her children, house chores, sleep, mood and social interactions. Denies any fever, abdominal or groin pain, weakness, foot drop, bladder or bowel dysfunction or saddle anesthesia. Oswestry Low Back Disability Score=27 (severe disability) Location: Lower back pain radiates down right lateral hip, anterior thigh and adair Duration: Chronic pain, on and off for many years, worsening for past 2-3 months Characteristics of symptom or complaint: Sharp, shooting throbbing, stabbing, aching, spasming, tiring Aggravating or associated factors: Any movement, sitting, bending, lifting, walking, twisting, pulling Relieving factors: Sitting, laying, morphine 1/2 tab at night, Tylenol ER, Flexeril, Medrol Treatment: PT started 1 week ago, sleeve gastrectomy (BMI>37 prior to surgery) [facility] Medical History (Updated 07/03/24 @ 12:59 by DIANA Mendoza) Polyarthralgia Plantar fasciitis, left Pelvic pain Ovarian cyst BHANU (obstructive sleep apnea) Morbid obesity Left lumbar radiculopathy Left knee pain Hemangioma Congenital vascular abnormality Low back pain Generalized anxiety disorder Surgical History (Updated 05/06/24 @ 11:08 by DIANA Mendoza) History of bunionectomy Hx of laparoscopic partial gastrectomy Hx of tubal ligation Hx of rhinoplasty Hx of section Social History Household Members: Family Housing: House Do you presently have visiting nurse or other home services: No Alcohol intake: never Patient Tobacco Use Status: Never used Tobacco service: No Review of Systems Const All systems reviewed & are unremarkable except as noted in HPI and below ENT Reports Normal hearing present Neuro Reports Normal hearing present and Denies confusion Psych Denies confusion Physical Exam Vital Signs: BMI result Body Mass Index 28.3 Const General: cooperative, alert and awake; No confusion Orientation/consciousness: patient oriented x3 and No confusion Resp Effort & Inspection: able to speak in complete sentences, no audible wheezes and no cough Neuro General: patient oriented x3 and No confusion Cranial nerves: Yes Normal hearing present Cognition (Neuro): normal cognition Psych Mental Status: mental status grossly normal Speech and movement: Clear speech present Affect: normal affect Attitude: cooperative Thought process: Normal thought process present Thought content: Normal thought content present and No Depressive thoughts present Insight: Good insight present (Psych) Judgement: Good judgement present (Psych) Telehealth Telehealth Telehealth Platform: Telephone Location of provider rendering services: practice address Location of patient: address on file Patient Identification confirmed using: Name, : Yes Telehealth method: voice only Patient verbally consented to treatment: Yes Patient verbally consented to billing insurance company: Yes Patient informed of any privacy concerns related to visit: Yes Minutes spent on Phone/Video with Pt.: 21 Results Reviewed Results Reviewed: MR LUMBAR SPINE WITHOUT CONTRAST 06/24/24 CLINICAL INFORMATION: Spondylosis without myelopathy or radiculopathy FINDINGS: There are 5 nonrib-bearing lumbar-type vertebrae. Slight straightening of the normal lumbar lordosis. No listhesis. No acute bone marrow abnormality. The vertebral body heights are preserved. The disc spaces are also preserved. The visualized spinal cord is normal in caliber. No abnormal cord signal. The conus medullaris terminates at L1. T12-L1: No significant spinal canal or neural foraminal narrowing. L1-2: No significant spinal canal or neural foraminal narrowing. L2-3: No significant spinal canal or neural foraminal narrowing. L3-4: Bilateral facet arthrosis. No significant spinal canal or neural foraminal narrowing. L4-5: Bilateral facet arthrosis. No significant spinal canal stenosis. Mild bilateral neural foraminal narrowing. L5-S1: 4 mm extracanalicular synovial cyst abutting the right facet joint. Bilateral facet arthrosis. No significant spinal canal stenosis. Mild left neural foraminal narrowing. The paravertebral soft tissues are unremarkable. IMPRESSION: Bilateral facet arthrosis from L3 to S1. Mild neural foraminal narrowing is seen bilaterally at L4-L5 and on the left at L5-S1. A 4 mm extracanalicular synovial cyst is seen on the right at L5-S1. Assessment & Plan Assessment & Plan (1) Lumbosacral spondylosis: Code(s): M47.817 - Spondylosis without myelopathy or radiculopathy, lumbosacral region Category: Medical (2) Sacroiliac joint pain: Code(s): M53.3 - Sacrococcygeal disorders, not elsewhere classified Category: Medical (3) Low back pain: Code(s): M54.50 - Low back pain, unspecified Category: Medical (4) Family history of rheumatoid arthritis: Code(s): Z82.61 - Family history of arthritis Category: Medical (5) Muscle spasm of back: Code(s): M62.830 - Muscle spasm of back Category: Medical Plan Lumbar spine MRI results were discussed with patient today in greater detail. Discuss interventional treatments for axial low back pain and SI joint pain, including diagnostic lumbar medial branch blocks for potential Sprint PNS trial, RFA procedure, or therapeutic injections. I will provide website links here for patient to review about procedures discussed today. Patient is aware to reach out to our office if she has any further questions about interventional treatments via phone or patient portal. [email or web address] Tentatively plan for Bilateral Diagnostic L3-L4-DR L5 MBB and potential right L5-S1 synovial cyst aspiration with local and fluoroscopy for axial low back pain. Expectations, risks and benefits were reviewed. Patient is aware that she can continue management of cervical spine pain symptoms through our office as well. RA baseline lab work provided to patient today with family history of RA. Continue physical therapy and home exercise program. All questions and concerns have been answered. Follow up as needed. I hereby testify that I spent 21 minutes in conversation with this patient as well as with planning and coordinating care for this patient and organizing this note. Orders: Orders Erythrocyte Sedimentation Rate Today M47.817 - Spondylosis without myelopathy or radiculopathy, lumbosacral region, M53.3 - Sacrococcygeal disorders, not elsewhere classified, Z82.61 - Family history of arthritis DNA Double Stranded-Crithidia Today M47.817 - Spondylosis without myelopathy or radiculopathy, lumbosacral region, M53.3 - Sacrococcygeal disorders, not elsewhere classified, Z82.61 - Family history of arthritis Rheumatoid Factor Today M47.817 - Spondylosis without myelopathy or radiculopathy, lumbosacral region, M53.3 - Sacrococcygeal disorders, not elsewhere classified, Z82.61 - Family history of arthritis NICHOLE Reflex Titer and Pattern Today M47.817 - Spondylosis without myelopathy or radiculopathy, lumbosacral region, M53.3 - Sacrococcygeal disorders, not elsewhere classified, M54.50 - Low back pain, unspecified, Z82.61 - Family history of arthritis Cyclic Citrullinated Peptide Today M47.817 - Spondylosis without myelopathy or radiculopathy, lumbosacral region, M53.3 - Sacrococcygeal disorders, not elsewhere classified, Z82.61 - Family history of arthritis Complete Blood Count Auto Diff Today M53.3 - Sacrococcygeal disorders, not elsewhere classified, Z82.61 - Family history of arthritis Comprehensive Met. Panel Today M47.817 - Spondylosis without myelopathy or radiculopathy, lumbosacral region, M53.3 - Sacrococcygeal disorders, not elsewhere classified, Z82.61 - Family history of arthritis Coding Level of Care Code Tele Est Pt Level 4 (32336) Diagnoses Lumbosacral spondylosis M47.817 Sacroiliac joint pain M53.3 Low back pain M54.50 Family history of rheumatoid arthritis Z82.61 Muscle spasm of back M62.830
[2024-07-03 09:35] VITALS: BMI 28.3
--- OUTSIDE RECORDS SUMMARY | 2024-07-03 09:35 | XMS_ITS | Continuity of Care Document ---
Author Organization [facility] ter Address [address] [place] [id number]- Care Team Providers Care Information Architect Name Role Phone Noemy CHO, Carmel Castro Primary Care Physician Encounter 06/15/24 - 06/16/[address] [address] Attending Physician: Not on Staff, Attending MD Referring Physician: Not on Staff, Referring MD Allergies, Adverse Reactions, Alerts No Known Allergies Immunizations Given and Recorded Vaccine Date Status Refusal Reason influenza virus vaccine, inactivated 09/14/23 Ck rded influenza virus vaccine, inactivated 09/16/22 Ck rded influenza virus vaccine, inactivated 08/07/18 Ck rded influenza virus vaccine, inactivated 09/18/17 Ck rded influenza virus vaccine, inactivated 09/04/11 Ck rded [id number] 12y+ bivalent booster vax 09/16/22 Recorded SARS-CoV-2 mRNA ([id number]) vax 06/16/22 Recorded SARS-CoV-2 (COVID-19) mRNA BNT-162b2 vac 06/10/21 Recorded SARS-CoV-2 (COVID-19) mRNA BNT-162b2 vac 05/20/21 Recorded Influenza Virus Vaccine (oldterm) 09/07/19 Recorde d tetanus/diphtheria/pertussis, acel(Tdap) 1 05/16/13 Given 1Admin Note: 12/22/2011 Medications baclofen 10 mg oral tablet 10 mg, 1, tablet, By Mouth, 2 times a day, Refills 0, Maintenance, 05/14/24 8:35:00 EDT, Partial fill upon patient request if the prescription is for a schedule II opioid drug. Start Date: 05/14/24 Status: Ordered loratadine 10 mg oral tablet 1, tablet, By Mouth, Daily, # 90 tablet, Refills 1, Maintenance, 12/23/23 20:32:00 EST, Route to Pharmacy Electronically, [id number], 173, cm, 11/02/23 11:23:00 EST, Height, 100, kg, 11/01/23 11:01:00 EST, Dry Weight Start Date: 12/23/23 Status: Ordered magnesium oxide 400 mg oral capsule 1 capsule = 400 mg, By Mouth, Daily, # 30 capsule, 3 Refills, Acute 04/30/25 13:54:00 EDT, 04/30/2413:53:00 EDT, [facility]/pharmacy #[id number], Partial fill upon patient request if the prescription is for a schedule II opioid drug., 175, cm, 04/30/24 13:01:00 E... Start Date: 04/30/24 Stop Date: 04/30/25 Status: Ordered SUMAtriptan 100 mg oral tablet See Instructions, TAKE 1 TABLET BY MOUTH ONCE, # 9 tablet, 4 Refills, Maintenance, 05/09/24 6:24:00EDT, [id number], 175, cm, 04/30/24 13:01:00 EDT, Height, 82, kg, 04/25/24 2:56:00 EDT, Dry Weight Start Date: 05/09/24 Status: Ordered Problem List Condition Confirmation Course Effective Dates Status Health Status Informant Abdominal pain Confirmed Active Encounter for completion of form with patient Confirmed Active Elevated alkaline phosphatase level Confirmed Active Allergies Confirmed Active Amenorrhea Confirmed Active Congenital vascular abnormality Confirmed Active Ovarian cyst Confirmed Active Dizziness Confirmed Active Dyspnea Confirmed Active Family history of glaucoma in mother Confirmed Active Body aches Confirmed Active Head ache Confirmed Active Hemangioma Confirmed Active History of COVID-19 Confirmed Active S/P gastric sleeve procedure Confirmed Active Hydroureteronephrosis Confirmed Active Intractable low back pain Confirmed Active Liver mass Confirmed Active Low back pain Confirmed Active Left lumbar radiculopathy Confirmed Active Morbid obesity Confirmed Active Polyarthralgia Confirmed Active Nausea Confirmed Active Obstructive sleep apnea Confirmed Active Pelvic pain Confirmed Active Left knee pain Confirmed Active Left hand paresthesia Confirmed Active Healthcare maintenance Confirmed Active Plantar fasciitis, left Confirmed Active Results Radiology Reports * Exam Date Time Procedure Performing Provider Status 06/15/24 3:51 PM MRI Cervical Spine W/O Contrast Auth (Verified) Notes: (MRI Cervical Spine W/O Contrast) Reason For Exam: Reason For Exam: M54.2 - Cervicalgia, , c 5-6 herniation with right upper extremity radiculopathy;Reason For Exam: M54.2 - Cervicalgia, , c 5-6 herniation with right upper extremity radiculopathy RESULT: MRI Cervical Spine W/O Contrast [facility] VISIT NUMBER :[id number] Patient Name: Leonila Hilario Date of : 1990 Date of Exam: 06-15-2024 Referring Physician: Timothy Patel [address] [place] [address] Exam: MR Cervical Spine (C-) CPT 21045 Room Description: [facility] 3T MR Cervical Spine (C-) CPT 01634 INDICATION: Reason For Exam: M54.2 - Cervicalgia, , c 5-6 herniation with right upper extremity radiculopathy TECHNIQUE: Multiplanar, multisequence MRI of the cervical spine was performed without intravenous contrast. COMPARISON: None. FINDINGS: ALIGNMENT, VERTEBRAE, MARROW, AND DISCS: Alignment is normal. Vertebral body heights are preserved. There is no significant marrow signal abnormality. Intervertebral discs are maintained. POSTERIOR FOSSA AND CORD: Visualized posterior fossa is normal. The cervical cord is normal in signal and caliber. PARASPINAL TISSUES: Soft tissues of the neck are unremarkable. Major cervical flow voids are present. DETAILED FINDINGS BY LEVEL: C2-C3: No significant disc herniation, central stenosis, or neural foraminal narrowing. C3-C4: Left greater than right uncovertebral spurring and mild facet spurring. No significant central stenosis. Mild to moderate left and minimal right neural foraminal narrowing. C4-C5: Mild facet hypertrophy. No significant central stenosis. Mild left and no right neural foraminal narrowing. C5-C6: Minimal posterior disc bulge. No significant central stenosis neural foraminal narrowing. C6-C7: Minimal posterior disc bulge. No significant central stenosis or neural foraminal narrowing. C7-T1: Mild facet spurring. Minimal posterior disc bulge. No significant central stenosis or neural foraminal narrowing. IMPRESSION: Mild degenerative changes of the cervical spine as detailed above. * No high-grade central stenosis or cord compression. * Neural foraminal narrowing is greatest on the left at C3-4 (mild to moderate). Electronically Signed By: Mary Monroe MD Dictated By: Not on Staff , ROSSANA CHO Dictated Date/Time: 06/16/24 4:56 pm Reviewed By: Not on Staff , ROSASNA CHO Signed By: Not on Staff , ROSSANA CHO Signed Date/Time: 06/16/24 4:56 pm Transcribed By: IWONA Transcribed Date/Time: 06/16/24 4:56 pm Social History Social History Type Response Smoking Status Former smoker; Other : quit 2012; entered on: 03/01/17 Sex Patient Care team information Care Team Personnel Name: Noemy CHO, Carmel Castro Position: [facility] Physician - Primary Care Member Role: PCP Address: Address: [address] [place] [address], [facility] [address] Name: Ivory Aldana RN Position: [facility] RN Member Role: Primary Care Nurse Care Team Related Persons Name: ARIESLOREBLAS BOWENE Address: [address] [address] Name: LATA REESE Address: [employer] Address: home [address] [address] [place] Name: GINA REESE Address: [employer] Address: home [address] [address] [place]
--- OUTSIDE RECORDS SUMMARY | 2024-07-03 09:35 | XMS_ITS | Continuity of Care Document ---
Author Organization [facility] ter Address [address] [place] [id number]- Care Team Providers Care Territory Sales Executive Name Role Phone Carmel Salguero MD Primary Care Physician [phone] Encounter [facility] Date(s): 04/24/24 - 04/25/[address] [address]- Discharge Disposition: A-D/C Home Attending Physician: Cecilio Zavala MD Admitting Physician: Cecilio Zavala MD Referring Physician: Not on Staff, Referring MD Allergies, Adverse Reactions, Alerts No Known Allergies Immunizations Given and Recorded Vaccine Date Status Refusal Reason influenza virus vaccine, inactivated 09/14/23 Ck rded influenza virus vaccine, inactivated 09/16/22 Ck rded influenza virus vaccine, inactivated 08/07/18 Ck rded influenza virus vaccine, inactivated 09/18/17 Ck rded influenza virus vaccine, inactivated 09/04/11 Ck rded [id number] 12y+ bivalent booster vax 09/16/22 Recorded SARS-CoV-2 mRNA (xvftivw-huxu-gvgmj) vax 06/16/22 Recorded SARS-CoV-2 (COVID-19) mRNA BNT-162b2 vac 06/10/21 Recorded SARS-CoV-2 (COVID-19) mRNA BNT-162b2 vac 05/20/21 Recorded Influenza Virus Vaccine (oldterm) 09/07/19 Recorde d tetanus/diphtheria/pertussis, acel(Tdap) 1 05/16/13 Given 1Admin Note: 12/22/2011 Medications Albuterol (Eqv-Proventil HFA) 90 mcg/inh inhalation aerosol 2 puffs, Inhalation, Every 6 hours, # 18 Gm, 0 Refills, Maintenance, 10/16/23 16:27:00 EST, [id number], Partial fill upon patient request if the prescription is for a schedule II opioid drug., 175, cm, 10/16/23 16:16:00 EST, Height, 101.5, kg,... Start Date: 10/16/23 Status: Ordered Aleve 220 mg oral capsule 2 capsule = 440 mg, By Mouth, Every 12 hours, PRN Pain , Severe, 0 Refills, Maintenance, 10/16/23 14:57:00 EST, Capsule, Partial fill upon patient request if the prescription is for a schedule II opioid drug. Start Date: 10/16/23 Status: Ordered cyclobenzaprine 10 mg oral tablet 10 mg, 1, tablet, By Mouth, 2 times a day, # 60 tablet, Refills 0, Tot. Refills 0, Maintenance, 04/11/24 20:50:00 EDT, Route to Pharmacy Electronically, [facility] #[id number], Partial fill upon patient request if the prescription is for a schedule II opi... Start Date: 04/11/24 Status: Ordered famotidine 20 mg oral tablet 20 mg, By Mouth, Daily, # 4 tablet, Refills 0, Tot. Refills 0, Maintenance, 10/16/23 16:27:00 EST, Route to Pharmacy Electronically, [facility] #[id number], Partial fill upon patient request if the prescription is for a schedule II opioid drug., 175, cm,... Start Date: 10/16/23 Status: Ordered ibuprofen 400 mg oral tablet 400 mg, Tablet, By Mouth, Once, STAT, 04/24/24 21:42:00 EDT, Stop date 04/24/24 21:42:00 EDT Start Date: 04/24/24 Stop Date: 04/24/24 Status: Completed Knee Support See Instructions, # 1 each, Maintenance, Left knee splint Dx M25.562 M23.50 dx, 01/19/23 10:25:00 EST, Supply, 175, cm, 12/25/22 13:55:00 EST, Height, 116, kg, 08/12/22 18:32:00 EDT, Dry Weight Start Date: 01/19/23 Status: Ordered lidocaine 4% topical film 1 patch, Topically, Daily, # 30 each, 1 Refills, Maintenance, 04/26/24 3:10:00 EDT, Film, [id number], Partial fill upon patient request if the prescription is for a schedule II opioid drug., 1 patch Topically Daily, 175, cm, 04/12/24 19:57:00... Start Date: 04/26/24 Status: Ordered lidocaine 5% topical film 1 patch, Topically, Daily, for 7 days, remove patches after 12 hours, # 7 patch, 0 Refills, Hard Stop 05/02/24 2:39:00 EDT, 04/25/24 2:39:00 EDT, [id number], Partial fill upon patient requestif the prescription is for a schedule II opioid mohamud... Start Date: 04/25/24 Stop Date: 05/02/24 Status: Ordered loratadine 10 mg oral tablet 1, tablet, By Mouth, Daily, # 90 tablet, Refills 1, Maintenance, 12/23/23 20:32:00 EST, Route to Pharmacy Electronically, [id number], 173, cm, 11/02/23 11:23:00 EST, Height, 100, kg, 11/01/23 11:01:00 EST, Dry Weight Start Date: 12/23/23 Status: Ordered Medrol Dosepak 4 mg oral tablet 1 pack/packet, By Mouth, Daily, for 6 days, as directed on package labeling, # 21 tablet, 5 Refills, Acute 05/31/24 2:38:00 EDT, 04/25/24 2:38:00 EDT, Tablet, [facility] #[id number], Partial fill upon patient request if the prescription is for a schedule... Start Date: 04/25/24 Stop Date: 05/31/24 Status: Ordered morphine 15 mg oral tablet, immediate release 1 tablet = 15 mg, By Mouth, Every 4 hours, PRN Pain , Severe, for 3 days, # 18 tablet, 0 Refills, Acute 04/28/24 2:38:00 EDT, 04/25/24 2:38:00 EDT, Tablet, [id number], Partial fill upon patient request if the prescription is for a schedule II... Start Date: 04/25/24 Stop Date: 04/28/24 Status: Ordered oxyCODONE 5 mg oral tablet 2.5 mg, Tablet, By Mouth, Once, STAT, 04/24/24 21:42:00 EDT, Stop date 04/24/24 21:42:00 EDT Start Date: 04/24/24 Stop Date: 04/24/24 Status: Completed oxyCODONE 5 mg oral tablet 2.5 mg, Tablet, By Mouth, Once, STAT, 04/24/24 23:53:00 EDT, Stop date 04/24/24 23:53:00 EDT Start Date: 04/24/24 Stop Date: 04/25/24 Status: Completed pantoprazole 40 mg oral delayed release tablet 1 tablet = 40 mg, By Mouth, Daily, # 30 tablet, 0 Refills, Maintenance, 01/30/24 10:03:00 EST, EC Tablet Start Date: 01/30/24 Status: Ordered Splint See Instructions, # 1 each, Maintenance, Left carpal tunnel splint Dx R20.2 DX g56.00, 01/19/23 10:26:00 EST, Supply, 175, cm, 12/25/22 13:55:00 EST, Height, 116, kg, 08/12/22 18:32:00 EDT, Dry Weight Start Date: 01/19/23 Status: Ordered SUMAtriptan 100 mg oral tablet See Instructions, TAKE 1 TABLET BY MOUTH ONCE, # 9 tablet, 4 Refills, Maintenance, 05/24/23 18:58:00 EDT, [id number], 175, cm, 12/25/22 13:55:00 EST, Height, 116, kg, 08/12/22 18:32:00 EDT, Dry Weight Start Date: 05/24/23 Status: Ordered Problem List Condition Confirmation Course [...] COVID-19 Confirmed Active Liver mass Confirmed Active Low back pain Confirmed Active Left lumbar radiculopathy Confirmed Active Morbid obesity Confirmed Active Polyarthralgia Confirmed Active Nausea Confirmed Active Obstructive sleep apnea Confirmed Active Pelvic pain Confirmed Active Left knee pain Confirmed Active Left hand paresthesia Confirmed Active Healthcare maintenance Confirmed Active Plantar fasciitis, left Confirmed Active Vital Signs Most recent to oldest [Reference Range]: 1 2 3 4 Oxygen Saturation [94-100 %] 100 % (04/25/24 2:56 AM) 100 % (04/24/24 7:44 PM) Pulse Rate [55-90 bpm] 84 bpm (04/25/24 2:56 AM) 99 bpm *H* (04/24/24 7:44 PM) Blood Pressure [90-138/55-84 mm Hg] 97/54mm Hg (04/25/24 2:56 AM) 122/108mm Hg (04/24/24 7:44 PM) Respiratory Rate [16-30 br/min] 17 br/min (04/25/24 2:56 AM) 17 br/min (04/25/24 12:12 AM) 16 br/min (04/24/24 11:02 PM) 16 br/min (04/24/24 11:02 PM) Temperature [96.8-100.4 DegF] 97.8 DegF (04/25/24 2:56 AM) 97.7 DegF (04/24/24 7:44 PM) Mode of Delivery (Oxygen) Room air (04/24/24 7:44 PM) Blood pressure sites Leg, right (04/24/24 7:44 PM) Temperature Route Oral (04/25/24 2:56 AM) Oral (04/24/24 7:44 PM) Dry Weight 82 kg (04/25/24 2:56 AM) 82 kg (04/24/24 7:49 PM) 82 kg (04/24/24 7:45 PM) Dry Weight Obtained Via Patient/family stated (04/24/24 7:49 PM) Social History Social History Type Response Smoking Status Former smoker; Other : quit 2012; entered on: 03/01/17 Sex Note * Sally CHO, Cecilio Castro: PERFORM Event Display: Patient Education Leaflets Authored Date: [id number] Lidocaine Medicated Patch ?? [address] Lidocaine Medicated Patch Brands: Lidoderm, ZTlido Uses This medicine is used for the following purposes: ??? itching ??? pain ??? skin irritation ??? skinwound ?? Instructions DO NOT take this medicine by mouth. Apply the patch to the most painful area. The patch should be removed after 8 or 12 hours depending on the brand of your product. Read the package instructions or ask your pharmacist how long the patch can be applied to the skin. Keep the medicine at room temperature. Avoid heat and direct light. You may cut the patch with scissors if needed. Be sure to cut the patch before peeling away the liner protecting the adhesive. Wash your hands before and after handling this medicine. Do not use if the pouch containing the medicine is torn or damaged. Remove the plastic liner that protects the sticky side of the patch before applying to the skin. Be sure the area of skin is clean and dry before putting on a new patch. Apply the patch only to normal looking skin. Avoid skin that is red, scraped, or damaged. Press the patch firmly for a few seconds to make sure it stays in place. If the patch does not stick, speak with your doctor or pharmacist. Do not cover the patch with bandage or tape unless instructed by your doctor or pharmacist. After removing the patch, fold it together and discard it out of reach of children and pets. Do not dispose of a used patch by flushing it into the toilet. Avoid getting the medicine in the eyes, nose, or mouth. Wash your hands after touching patch. If the patch causes a feeling of burning or pain at the location of the patch, remove the patch until the feeling goes away. If the patch falls off or you forgot to use the patch on time, apply a new patch immediately to a different location. Replace this new patch at your next usual dosing time. Do not apply heat on the area with the patch. Avoid heating blankets, suntan beds, or hot tubs. Ask the doctor or pharmacist if you can bathe, swim or shower while wearing the patch. Clothing may be worn over the patch. Avoid touching or scratching the area of the skin after the patch is removed. Drug interactions can change how medicines work or increase risk for side effects. Tell your healthcare providers about all medicines taken. Include prescription and sxgq-nrk-tmmgxlg medicines, vitamins, and herbal medicines. Speak with your doctor or pharmacist before starting or stopping any medicine. Tell your doctor if symptoms do not get better or if they get worse. ?? Cautions Some patients taking this medicine have experienced serious side effects. Please speak with your doctor to understand the risks and benefits associated with this medicine. Tell your doctor and pharmacist if you ever had an allergic reaction to a medicine. Do not use the medication any more than instructed. Tell the doctor or pharmacist if you are , planning to be , or . Ask your doctor if patch should be removed before having an MRI scan to avoid serious chawla. Do not share this medicine with anyone who has not been prescribed this medicine. ?? Side Effects The following is a list of some common side effects from this medicine. Please speak with your doctor about what you should do if you experience these or other side effects. ??? burning or stinging ??? numbness where the medicine is applied ??? skin irritation where medicine is applied Call your doctor or get medical help right away if you notice any of these more serious side effects: ??? blurry vision ??? shallow, irregular breathing ??? dizziness or drowsiness ??? lack of energy and tiredness ??? fast, irregular, or slow heartbeat ??? mood changes ??? pale or blue skin, lips or fingernails ??? ringing in the ears ??? seizures ??? shortness of breath A few people may have an allergic reaction to this medicine. Symptoms can include difficulty breathing, skin rash, itching, swelling, or severe dizziness. If you notice any of these symptoms, seek medical help quickly. ?? Extra Please speak with your doctor, nurse, or pharmacist if you have any questions about this medicine. ?? [email or web address] IMPORTANT NOTE: This document tells you briefly how to take your medicine, but it does not tell youall there is to know about it. Your doctor or pharmacist may give you other documents about your medicine. Please talk to them if you have any questions. Always follow their advice. There is a more complete description of this medicine available in [place]. Scan this code on your smartphone or tablet or use the web address below. You can also ask your pharmacist for a printout. If you have any questions, please ask your pharmacist. The display and use of this drug information is subject to Terms of Use. Copyright(c) 2023 [employer]. ?? The [employer]. All rights reserved. This information is not intended as a substitute for professional medical care. Always follow your healthcare professional's instructions. ?? * Cecilio Zavala MD: PERFORM Event Display: Patient Education Leaflets Authored Date: [id number] Methylprednisolone Oral Tablet ?? 47706-376 Methylprednisolone Oral Tablet Brands: Medrol Uses This medicine is used for the following purposes: ??? allergic reaction ??? autoimmune disorder ???blood disorder ??? diagnostic test ??? endocrine disorder ??? inflammatory disease ??? immune suppression ??? cancer ??? COVID-19 (coronavirus) ?? Instructions Take the medicine with food. Keep the medicine at room temperature. Avoid heat and direct light. If you forget to take a dose on time, take it as soon as you remember. If it is almost time for thenext dose, do not take the missed dose. Return to your normal schedule. Do not take 2 doses at one time. Drug interactions can change how medicines work or increase risk for side effects. Tell your healthcare providers about all medicines taken. Include prescription and smbu-fth-atfxwea medicines, vitamins, and herbal medicines. Speak with your doctor or pharmacist before starting or stopping any medicine. Tell your doctor if symptoms do not get better or if they get worse. If you need to stop this medicine, your doctor may wish to gradually reduce the dosage before stopping. This medicine may affect your blood sugar levels. If you have diabetes, talk to your doctor before changing the dose of your diabetes medicine. This medicine may affect the strength of your bones. If you have or are at increased risk for osteoporosis (weakening of the bones), your doctor may recommend foods with calcium and vitamin D. Keep all appointments for medical exams and tests while on this medicine. ?? Cautions Tell your doctor and pharmacist if you ever had an allergic reaction to a medicine. Do not use the medication any more than instructed. Your ability to stay alert or to react quickly may be impaired by this medicine. Do not drive or operate machinery until you know how this medicine will affect you. Please check with your doctor before drinking alcohol while on this medicine. This medicine may reduce your body's ability to fight infections. Avoid contact with people with colds, flu or other infections. Contact your doctor if you develop fever, cough, sore throat, or chills. Speak with your health care provider before receiving any vaccinations. This medicine passes into breast milk. Ask your doctor before . During , this medicine should be used only when clearly needed. Talk to your doctor about the risks and benefits. Do not share this medicine with anyone who has not been prescribed this medicine. ?? Side Effects The following is a list of some common side effects from this medicine. Please speak with your doctor about what you should do if you experience these or other side effects. ??? acne ??? agitated feeling or trouble sleeping ??? increased appetite ??? dizziness ??? headaches ??? high blood sugar ??? high blood pressure ??? nausea and vomiting ??? stomach upset or abdominal pain ??? sweating Call your doctor or get medical help right away if you notice any of these more serious side effects: ??? bleeding or bruising ??? severe or persistent bone, joint or jaw pain ??? coughing up blood or vomit that looks like coffee grounds ??? depression or feeling sad ??? swelling of the legs, feet, and hands ??? fever or chills ??? hair growth ??? fast or irregular heart beats ??? signs of liver damage (such as yellowing of eye or skin, dark urine, or unusual tiredness) ??? menstruation changes (missed or fewer periods) ??? mood changes ??? muscle weakness ??? seizures ??? thinning of the skin ??? dark, tarry stool ??? excessive thirst ??? yeast infection of mouth ??? increased urinary frequency ??? vaginal itching or yeast infection ??? blurring or changes of vision ??? sudden or unexplained weight gain ??? slow wound healing A few people may have an allergic reaction to this medicine. Symptoms can include difficulty breathing, skin rash, itching, swelling, or severe dizziness. If you notice any of these symptoms, seek medical help quickly. ?? Extra Please speak with your doctor, nurse, or pharmacist if you have any questions about this medicine. ?? [email or web address] IMPORTANT NOTE: This document tells you briefly how to take your medicine, but it does not tell youall there is to know about it. Your doctor or pharmacist may give you other documents about your medicine. Please talk to them if you have any questions. Always follow their advice. There is a more complete description of this medicine available in [place]. Scan this code on your smartphone or tablet or use the web address below. You can also ask your pharmacist for a printout. If you have any questions, please ask your pharmacist. The display and use of this drug information is subject to Terms of Use. Copyright(c) 2023 [employer]. ?? The [employer]. All rights reserved. This information is not intended as a substitute for professional medical care. Always follow your healthcare professional's instructions. ?? * Sally CHO, Cecilio Castro: PERFORM Event Display: Patient Education Leaflets Authored Date: [id number] Morphine Oral Tablet ?? 14154-105 Morphine Oral Tablet Uses For pain. ?? Instructions This medicine may be taken with or without food. Store at room temperature away from heat, light, and moisture. Do not keep in the bathroom. Please ask your doctor, nurse, or pharmacist how to discard unused medicines safely. To reduce constipation, eat high fiber foods, drink plenty of water and exercise. Drug interactions can change how medicines work or increase risk for side effects. Tell your healthcare providers about all medicines taken. Include prescription and qown-lig-zekfqlf medicines, vitamins, and herbal medicines. Speak with [...] instructed. This medicine may cause dizziness or fainting. Do not stand or sit up quickly. If possible, avoid using with [...] drowsiness ??? lightheadedness ??? nausea and vomiting Call your doctor or get medical help right away if you notice any of these more serious side effects: ??? decreased awareness or responsiveness ??? breathing interruption during sleep ??? shallow, irregular breathing ??? changes in memory, mood, or thinking ??? confusion ??? fainting ??? hallucinations (unusual thoughts, seeing or hearing things that are not real) ??? seizures ??? severe stomach orbowel pain ??? unusual or unexplained tiredness or weakness ??? difficulty or discomfort urinating ??? weight loss A few people may have an allergic reaction to this medicine. Symptoms can include difficulty breathing, skin rash, itching, swelling, or severe dizziness. If you notice any of these symptoms, seek medical help quickly. ?? Extra Please speak with your doctor, nurse, or pharmacist if you have any questions about this medicine. ?? [email or web address] IMPORTANT NOTE: This document tells you briefly how to take your medicine, but it does not tell youall there is to know about it. Your doctor or pharmacist may give you other documents about your medicine. Please talk to them if you have any questions. Always follow their advice. There is a more complete description of this medicine available in Ukrainian. Scan this code on your smartphone or tablet or use the web address below. You can also ask your pharmacist for a printout. If you have any questions, please ask your pharmacist. The display and use of this drug information is subject to Terms of Use. Copyright(c) 2023 [employer]. ?? The [employer]. All rights reserved. This information is not intended as a substitute for professional medical care. Always follow your healthcare professional's instructions. ?? Patient Care team information Care Team Personnel Name: Noemy CHO, Carmel Castro Position: [facility] Physician - Primary Care Member Role: PCP Address: Address: [address] [place] [address], [address] [place] [address]- Name: Ivory Aldana RN Position: [facility] RN Member Role: Primary Care Nurse Care Team Related Persons Name: JUAN JULIAN Address: [address] [address] Name: LATA REESE Address: [place] Address: home [address] [address] [place] Name: GINA REESE Address: [place] Address: [address] [address] [place]
--- OUTSIDE RECORDS SUMMARY | 2024-07-03 09:36 | XMS_ITS | Continuity of Care Document ---
Author Organization [facility] ter Address [address] [place] [address]- Care Team Providers Care Knife Edger Name Role Phone Noemy CHO, Carmel Castro Primary Care Physician [phone] Encounter [facility] [place](s): 03/25/24 - 03/25/[address] [address]- Discharge Disposition: A-D/C Home Attending Physician: Rivka Rincon MD Admitting Physician: Rivka Rincon MD Referring Physician: Not on Staff, Referring MD Allergies, Adverse Reactions, Alerts No Known Allergies Immunizations Given and Recorded Vaccine Date Status Refusal Reason influenza virus vaccine, inactivated 09/14/23 Ck rded influenza virus vaccine, inactivated 09/16/22 Ck rded influenza virus vaccine, inactivated 08/07/18 Ck rded influenza virus vaccine, inactivated 09/18/17 Ck rded influenza virus vaccine, inactivated 09/04/11 Ck rded [id number] 12y+ bivalent booster vax 09/16/22 Recorded SARS-CoV-2 mRNA (tkuviiw-nnex-fyvfw) vax 06/16/22 Recorded SARS-CoV-2 (COVID-19) mRNA BNT-162b2 vac 06/10/21 Recorded SARS-CoV-2 (COVID-19) mRNA BNT-162b2 vac 05/20/21 Recorded Influenza Virus Vaccine (oldterm) 09/07/19 Recorde d tetanus/diphtheria/pertussis, acel(Tdap) 1 05/16/13 Given 1Admin Note: 12/22/2011 Medications Albuterol (Eqv-Proventil HFA) 90 mcg/inh inhalation aerosol 2 puffs, Inhalation, Every 6 hours, # 18 Gm, 0 Refills, Maintenance, 10/16/23 16:27:00 EST, [facility]/pharmacy #[id number], Partial fill upon [...] opioid drug. Start Date: 10/16/23 Status: Ordered famotidine 20 mg oral tablet 20 mg, By Mouth, Daily, # 4 tablet, Refills 0, Tot. Refills 0, Maintenance, 10/16/23 16:27:00 EST, [id number] Partial fill upon patient request if the prescription is for a schedule II opioid drug., 175, cm,... Start Date: 10/16/23 Status: Ordered Knee Support See Instructions, # 1 each, Maintenance, Left knee splint Dx M25.562 M23.50 dx, 01/19/23 10:25:00 EST, Supply, 175, cm, 12/25/22 13:55:00 EST, Height, 116, kg, 08/12/22 18:32:00 EDT, Dry Weight Start Date: 01/19/23 Status: Ordered loratadine 10 mg oral tablet 1, tablet, By Mouth, Daily, # 90 tablet, Refills 1, Maintenance, 12/23/23 20:32:00 EST, Route to Pharmacy Electronically, [id number], 173, cm, 11/02/23 11:23:00 EST, Height, 100, kg, 11/01/23 11:01:00 EST, Dry Weight Start Date: 12/23/23 Status: Ordered morphine 15 mg oral tablet, immediate release 1 tablet = 15 mg, By Mouth, Every 6 hours, PRN Pain , Severe, for 2 days, # 8 tablet, 0 Refills, Acute 03/27/24 21:01:00 EDT, 03/25/24 21:01:00 EDT, Tablet, [facility]/pharmacy #[id number], Partial fill upon patient request if the prescription is for a schedule II... Start Date: 03/25/24 Stop Date: 03/27/24 Status: Ordered MorPHINE Immediate Release Tablet 15 mg, Tablet, By Mouth, Once, STAT, 03/25/24 20:17:00 EDT, Stop date 03/25/24 20:17:00 EDT Start Date: 03/25/24 Stop Date: 03/25/24 Status: Completed Nirmatrelvir- ritonavir (Paxlovid)300mg (two 150mg tabs with 100mg ritonavir Nirmatrelvir- ritonavir (Paxlovid)300mg (two 150mg tabs with 100mg ritonavir, See Instructions, # 30 tablet, Refills 0, Tot. Refills 0, Maintenance, All 3 tabs olvin taken together BID x 5 days, 12/22/23 17:02:00 EST, Supply, 173, cm, 11/02/23 11:23:00... Start Date: 12/22/23 Status: Ordered pantoprazole 40 mg oral delayed release tablet 1 tablet = 40 mg, By Mouth, Daily, # 30 tablet, 0 Refills, Maintenance, 01/30/24 10:03:00 EST, EC Tablet Start Date: 01/30/24 Status: Ordered predniSONE 50 mg oral tablet 1 tablet = 50 mg, By Mouth, Daily, for 5 days, # 5 tablet, 0 Refills, Acute 03/31/24 21:01:00 EDT, 03/26/24 21:01:00 EDT, Tablet, [facility]/pharmacy #[id number], Partial fill upon patient request if the prescription is for a schedule II opioid drug., 175, cm, ... Start Date: 03/26/24 Stop Date: 03/31/24 Status: Ordered Splint See Instructions, # 1 each, Maintenance, Left carpal tunnel splint Dx R20.2 DX g56.00, 01/19/23 10:26:00 EST, Supply, 175, cm, 12/25/22 13:55:00 EST, Height, 116, kg, 08/12/22 18:32:00 EDT, Dry Weight Start Date: 01/19/23 Status: Ordered SUMAtriptan 100 mg oral tablet See Instructions, TAKE 1 TABLET BY MOUTH ONCE, # 9 tablet, 4 Refills, Maintenance, 05/24/23 18:58:00 EDT, [id number], 175, cm, 12/25/22 13:55:00 EST, Height, 116, kg, 08/12/22 18:32:00 EDT, Dry Weight Start Date: 05/24/23 Status: Ordered Tylenol 325 mg oral tablet 975 mg, Tablet, By Mouth, Once, STAT, 03/25/24 17:32:00 EDT, Stop date 03/25/24 17:32:00 EDT Start Date: 03/25/24 Stop Date: 03/25/24 Status: Completed Tylenol Extra Strength 500 mg oral tablet 1 tablet = 500 mg, By Mouth, Every 6 hours, PRN as needed for pain, for 10 days, # 100 tablet, 0 Refills, Acute 04/04/24 21:00:00 EDT, 03/25/24 21:00:00 EDT, Tablet, [facility]/pharmacy #[id number], Partial fill upon patient request if the prescription is for a sc... Start Date: 03/25/24 Stop Date: 04/04/24 Status: Ordered Problem List Condition Confirmation Course Effective Dates Status H ealth Status Informant Abdominal pain Confirmed Active Elevated alkaline phosphatase level Confirmed Active Allergies Confirmed Active Amenorrhea Confirmed Active Congenital vascular abnormality Confirmed Active Vaccine counseling Confirmed Active COVID-19 virus infection Confirmed Active Ovarian cyst Confirmed Active Dizziness Confirmed Active Dyspnea Confirmed Active Family history of glaucoma in mother Confirmed Active Body aches Confirmed Active Hemangioma Confirmed Active Hx of streptococcal pharyngitis Confirmed Active History of COVID-19 Confirmed Active Liver mass Confirmed Active Low back pain Confirmed Active Polyarthralgia Confirmed Active Nausea Confirmed Active Obstructive sleep apnea Confirmed Active Pelvic pain Confirmed Active Left knee pain Confirmed Active Left hand paresthesia Confirmed Active Healthcare maintenance Confirmed Active Plantar fasciitis, left Confirmed Active Vital Signs Most recent to oldest [Reference Range]: 1 2 3 Height 175 cm (03/25/24 4:35 PM) Oxygen Saturation [94-100 %] 100 % (03/25/24 8:19 PM) 100 % (03/25/24 6:57 PM) 100 % (03/25/24 5:53 PM) Pulse Rate [55-90 bpm] 85 bpm (03/25/24 8:19 PM) 89 bpm (03/25/24 6:57 PM) 91 bpm *H* (03/25/24 5:53 PM) Blood Pressure [90-138/55-84 mm Hg] 110/65mm Hg (03/25/24 8:19 PM) 117/80mm Hg (03/25/24 6:57 PM) 128/74mm Hg (03/25/24 5:53 PM) Respiratory Rate [16-30 br/min] 20 br/min (03/25/24 8:22 PM) 18 br/min (03/25/24 8:19 PM) 20 br/min (03/25/24 7:26 PM) Temperature [96.8-100.4 DegF] 98.1 DegF (03/25/24 5:53 PM) 97.7 DegF (03/25/24 4:35 PM) Mode of Delivery (Oxygen) Room air (03/25/24 8:19 PM) Room air (03/25/24 6:57 PM) Room air (03/25/24 5:53 PM) Blood pressure sites Arm, right (03/25/24 8:19 PM) Arm, right (03/25/24 6:57 PM) Arm, right (03/25/24 5:53 PM) Temperature Route Oral (03/25/24 5:53 PM) Oral (03/25/24 4:35 PM) Dry Weight 85 kg (03/25/24 4:35 PM) Dry Weight Obtained Via Patient/family s tated (03/25/24 4:35 PM) Social History Social History Type Response Smoking Status Former smoker; Other : quit 2012; entered on: 03/01/17 Sex Note * Rivka Rincon MD: PERFORM Event Display: Patient Education Leaflets Authored Date: [id number] Physical Therapy Referral ?? 250 ?? This page is FOR PRESCRIBERS Only, ? DO NOT GIVE TO THE PATIENT?? Physical Therapy Referral Program for Management of Pain In an effort to reduce narcotic use, some of our ED patients will benefit from a direct referral torehab care.?? [facility] will see INSURED patients and has a system in place to avoid sending follow up paperwork to the ED prescribers.? Note: Non-[facility] services will probably NOT be able to handle ED generated PT referrals. ?? Patients should still follow up with their PCP as soon as possible regarding their ongoing care. Inform patients that [facility] will discuss insurance when they call.?? Some insurance plans limit the amount of PT a patient can receive each year. ?? Complete the FIRST PAGE of the patient???s referral sheet. [place] or write in diagnosis. M odify the timing for treatment, if needed. List any major precautions (i.e.?? Non-weight bearing limb), if needed. Sign, date and print your name at the bottom. ? Physical Therapy Referral Form Patient Instructions: You are being referred to physical therapy.?? This form is your referral and MUST be brought to your appointment. You need to call to set up your appointment. ?? This form can be used at any [facility] location.?? A list of locations is attached.?? 1)?? DIAGNOSIS/ICD-10 ([place] one) Cervicalgia: M54.2 ? Strain of muscle, fascia and tendon at neck level: S16.1XXD? Radiculopathy, cervical region: M54.12? Mid back pain: M54.9 ? Low back pain:?? M54.5 Strain of muscle, fascia and tendon of lower back: S39.012D Radiculopathy, lumbosacral region: M54.17 Other:? 2)? [? ]? Evaluate and Treat 2 Times/Week for 4 weeks as needed [? ]?Other: 3)? [? ]? No Precautions [? ]?Precautions: ?? I hereby certify these services as medically necessary for the patient???s plan of care. Physician???s Signature Date Physician Name (printed)? Locations You can call any location below.?? Tell them you were seen in a [facility] and have a referral form.?? Remember to bring your referral form with you to the appointment. CAROLIN [place] [id number]? CAROLIN Sarkar [address] [address] [facility], [address]? [address] ? [place] ? CAROLIN Crane [address] [place] [address]? [address] [place] [address] Street ? [place] [address] [address] ? [place] [address]? [facility] [address] ? * Rivka Rincon MD: PERFORM Event Display: Patient Education Leaflets Authored Date: [id number] Prednisone Oral Tablet ?? [id number] Prednisone Oral Tablet Brands: Deltasone Uses This medicine is used for the following purposes: ??? allergic reaction ??? autoimmune disorder ???blood disorder ??? endocrine disorder ??? inflammatory disease ??? immune suppression ??? cancer ??? COVID-19 (coronavirus) ?? Instructions Take the medicine with food. Store at room temperature away from heat, light, and moisture. Do not keep in the bathroom. It is important that you keep taking [...] about all medicines taken. Include prescription and oqot-mlh-bmkiisd medicines, vitamins, and herbal medicines. Speak with your doctor or pharmacist before starting or stopping any medicine. Tell your doctor if symptoms do not get better or if they get worse. This medicine may affect your blood sugar [...] had an allergic reaction to a medicine. This medicine may cause bleeding from the stomach or bowels. Stop this medicine and call your doctor right away if you have pain in the stomach, red or dark tarry stools, or vomit that looks like coffee grounds. Do not use the medication any more than instructed. Please check with your doctor before drinking alcohol while on this medicine. Avoid smoking while on this medicine. Smoking may increase your risk for stomach bleeding. This medicine may reduce your body's ability [...] your doctor about the risks and benefits. Always carry an ID card or wear a medical alert bracelet indicating your medical condition. Do not share this medicine with anyone who has not been prescribed this medicine. ?? Side Effects The following is a list of some common side effects from this medicine. Please speak with your doctor about what you should do if you experience these or other side effects. ??? acne ??? agitated feeling or trouble sleeping ??? decreased appetite ??? high blood sugar ??? high blood pressure ??? nausea and vomiting ??? stomach upset or abdominal pain Call your doctor or get medical help right away if you notice any of these more serious side effects: ??? bleeding or bruising ??? bone pain ??? coughing up blood or vomit that looks like coffee grounds ??? depression or feeling sad ??? swelling of the legs, feet, and hands ??? fever or chills ??? fast or irregular heart beats ??? menstruation changes (missed or fewer periods) ??? mood changes ??? muscle pain or cramps ??? seizures ??? thinning of the skin ??? severe stomach or bowel pain ??? dark, tarry stool ??? unusual or unexplained tiredness or weakness ??? increased urinary frequency ??? blurring or changes of vision ??? [...] have any questions about this medicine. ?? [email or web address] IMPORTANT NOTE: This document tells you briefly how to take your medicine, but it does not tell youall there is to know about it. Your doctor or pharmacist may give you other documents about your medicine. Please talk to them if you have any questions. Always follow their advice. There is a more complete description of this medicine available in [place]. Scan this code on your smartphone or tablet or use the web address below. You can also ask your pharmacist for a printout. If you have any questions, please ask your pharmacist. The display and use of this drug information is subject to Terms of Use. Copyright(c) 2023 [employer]. ?? [employer]. All rights reserved. This information is not intended as a substitute for professional medical care. Always follow your healthcare professional's instructions. ?? * Rivka Rincon MD: PERFORM Event Display: Patient Education Leaflets Authored Date: [id number] Morphine Oral Tablet ?? [id number] Morphine Oral Tablet Uses For pain. ?? [...] about all medicines taken. Include prescription and ahfj-ywt-gakcqyf medicines, vitamins, and herbal medicines. Speak with [...] have any questions about this medicine. ?? [email or web address] IMPORTANT NOTE: This document tells you briefly how to take your medicine, but it does not tell youall there is to know about it. Your doctor or pharmacist may give you other documents about your medicine. Please talk to them if you have any questions. Always follow their advice. There is a more complete description of this medicine available in [place]. Scan this code on your smartphone or tablet or use the web address below. You can also ask your pharmacist for a printout. If you have any questions, please ask your pharmacist. The display and use of this drug information is subject to Terms of Use. Copyright(c) 2023 [employer], [employer]. ?? The [employer]. All rights reserved. This information is not intended as a substitute for professional medical care. Always follow your healthcare professional's instructions. ?? Patient Care team information Care Team Personnel Name: Noemy CHO, Carmel Castro Position: S Physician - Primary Care Member Role: PCP Address: Address: [address] [place] [address] [address] [place] [address]- [place] Name: Ivory Aldana RN Position: S RN Member Role: Primary Care Nurse Care Team Related Persons Name: JUAN JULIAN Address: home [address] [place] [address] Name: LATA REESE Address: [place] Address: home [address] [address] [place] Name: GINA REESE Address: [place] Address: home [address] [address] [place]
== END 2024-07-03 09:53 | disposition home or self-care (01) ==
LOC: HO.PMC 09:34
PROVIDERS: PCP Internal Medicine; Visit Provider Nurse Practitioner Family
DX: M47.817 Spondylosis without myelopathy or radiculopathy, lumbosacral region (principal); M53.3 Sacrococcygeal disorders, not elsewhere classified; M54.50 Low back pain, unspecified; Z82.61 Family history of arthritis; M62.830 Muscle spasm of back
CPT/HCPCS: 99214

== ENCOUNTER → 2024-07-03 09:34 | Outpatient (BNVA) | payer OTHER, SELFPAY | PROVIDERS: PCP Internal Medicine; Visit Provider Nurse Practitioner Family ==

== ENCOUNTER → 2024-09-03 11:20 | Outpatient (BNV) | payer OTHER, SELFPAY | PROVIDERS: PCP Internal Medicine; Referring Provider Internal Medicine; Visit Provider Internal Medicine | DX: D75.839 Thrombocytosis, unspecified (principal) | CPT/HCPCS: 99204 ==

== ENCOUNTER 2024-09-04 06:11 | Outpatient (REF) | payer OTHER, SELFPAY | END 2024-09-04 06:12 | disposition home or self-care (01) | LOC: CF 06:11 | PROVIDERS: Visit Provider Internal Medicine | DX: M47.817 Spondylosis without myelopathy or radiculopathy, lumbosacral region (principal) | CPT/HCPCS: 64493; 64494; J2003; J2795; Q9967 ==

== ENCOUNTER 2024-09-04 10:47 | Outpatient (AMB) | payer OTHER, SELFPAY ==
--- OUTSIDE RECORDS SUMMARY | 2024-09-04 10:49 | XMS_ITS | Continuity of Care Document ---
Author Organization [facility] Address [address] [facility], [address]r d Floor, [address] [place] [address]- Care Team Providers Care Director Of Orthopedics Name Role Phone Noemy CHO, Carmel Castro Primary Care Physician [phone] [place] [facility] [place]/24 [facility] [address], [address] [place] [address]- Attending Physician: Peggy HUMPHREY, Jackie Kirk Admitting Physician: Peggy DIRECTOR HOUSEKEEPING, Jackie Kirk Referring Physician: Noemy CHO, Carmel Castro Allergies, Adverse Reactions, Alerts No Known Allergies Immunizations Given and Recorded Vaccine Date Status Refusal Reason influenza virus vaccine, inactivated 09/14/23 Ck rded influenza virus vaccine, inactivated 09/16/22 Ck rded influenza virus vaccine, inactivated 08/07/18 Ck rded influenza virus vaccine, inactivated 09/18/17 Ck rded influenza virus vaccine, inactivated 09/04/11 Ck rded [id number] 12y+ bivalent booster vax 09/16/22 Recorded SARS-CoV-2 mRNA (zhxtone-ngnv-kdmko) vax 06/16/22 Recorded SARS-CoV-2 (COVID-19) mRNA BNT-162b2 [...] 12/23/23 20:32:00 EST, Route to Pharmacy Electronically, [id number], 173, cm, 11/02/23 11:23:00 EST, Height, 100, kg, 11/01/23 11:01:00 EST, Dry Weight Start Date: 12/23/23 Status: Ordered magnesium oxide 400 mg oral capsule 1 capsule = 400 mg, By Mouth, Daily, # 30 capsule, 3 Refills, Acute 04/30/25 13:54:00 EDT, 04/30/2413:53:00 EDT, [facility]/pharmacy #[id number], Partial fill upon patient request if the prescription is for a schedule II opioid drug., 175, cm, 04/30/24 13:01:00 E... Start Date: 04/30/24 Stop Date: 04/30/25 Status: Ordered SUMAtriptan 100 mg oral tablet See Instructions, TAKE 1 TABLET BY MOUTH ONCE, # 9 tablet, 4 Refills, Maintenance, 05/09/24 6:24:00EDT, [id number], 175, cm, 04/30/24 13:01:00 EDT, Height, 82, kg, 04/25/24 2:56:00 EDT, Dry Weight Start Date: 05/09/24 Status: Ordered Problem List Condition Confirmation Course Effective Dates Status H ealth Status Informant Abdominal pain Confirmed Active Encounter for completion of form with patient Confirmed Active Elevated alkaline phosphatase level Confirmed Active Allergies Confirmed Active Amenorrhea Confirmed Active Congenital vascular abnormality Confirmed Active Ovarian cyst Confirmed Active Dizziness Confirmed Active Dyspnea Confirmed Active Family history of glaucoma in mother Confirmed Active Body aches Confirmed Active Head ache Confirmed Active Hemangioma Confirmed Active History of nephrolithiasis Confirmed Active History of COVID-19 Confirmed Active S/P gastric sleeve procedure Confirmed Active Intractable low back pain Confirmed Active Liver mass Confirmed Active Low back pain Confirmed Active Left lumbar radiculopathy Confirmed Active Migraine headache Confirmed Active Morbid obesity Confirmed Active Polyarthralgia Confirmed Active Nausea Confirmed Active Obstructive sleep apnea Confirmed Active Pelvic pain Confirmed Active Left knee pain Confirmed Active Left hand paresthesia Confirmed Active Healthcare maintenance Confirmed Active Plantar fasciitis, left Confirmed Active Thrombocytosis Confirmed Active Social History Social History Type Response Smoking Status Former smoker; Other : quit 2012; entered on: 03/01/17 Sex Patient Care team information Care Team Personnel Name: Noemy CHO, Carmel Castro Position: [facility] Physician - Primary Care Member Role: PCP Address: Address: [address] [place] [address], [address] [place] [address]- Name: Ivory Aldana RN Position: [facility] RN Member Role: Primary Care Nurse Care Team Related Persons Name: JUAN JULIAN Address: home [address] [place] [address] Name: LATA REESE Address: [facility] Address: home [address] Name: GINA REESE Address: [facility] Address: home [address]
--- OUTSIDE RECORDS SUMMARY | 2024-09-04 10:49 | XMS_ITS | Continuity of Care Document ---
Author Organization [facility] Address [address] [facility], 3r d Floor, [address] [place] [address]- Care Team Providers Care Software Architect Name Role Phone Noemy CHO, Carmel Castro Primary Care Physician [phone] [place] [facility] [place] 07/30/24 - 08/30/24 [facility] [address] [place] [address], [address] [place] [address]- Attending Physician: Travis Khan MD Admitting Physician: Travis Khan MD Allergies, Adverse Reactions, Alerts No Known Allergies Immunizations Given and Recorded Vaccine Date Status Refusal Reason influenza virus vaccine, inactivated 09/14/23 Ck rded influenza virus vaccine, inactivated 09/16/22 Ck rded influenza virus vaccine, inactivated 08/07/18 Ck rded influenza virus vaccine, inactivated 09/18/17 Ck rded influenza virus vaccine, inactivated 09/04/11 Ck rded [id number] 12y+ bivalent booster vax 09/16/22 Recorded SARS-CoV-2 mRNA (xjjzakr-dowk-oevsi) vax 06/16/22 Recorded SARS-CoV-2 (COVID-19) mRNA BNT-162b2 [...] 12/23/23 20:32:00 EST, Route to Pharmacy Electronically, [facility], 173, cm, 11/02/23 11:23:00 EST, Height, 100, kg, 11/01/23 11:01:00 EST, Dry Weight Start Date: 12/23/23 Status: Ordered magnesium oxide 400 mg oral capsule 1 capsule = 400 mg, By Mouth, Daily, # 30 capsule, 3 Refills, Acute 04/30/25 13:54:00 EDT, 04/30/2413:53:00 EDT, [facility]/pharmacy #[id number], Partial fill upon patient request if the prescription is for a schedule II opioid drug., 175, cm, 04/30/24 13:01:00 E... Start Date: 04/30/24 Stop Date: 04/30/25 Status: Ordered SUMAtriptan 100 mg oral tablet See Instructions, TAKE 1 TABLET BY MOUTH ONCE, # 9 tablet, 4 Refills, Maintenance, 05/09/24 6:24:00EDT, [facility], 175, cm, 04/30/24 13:01:00 EDT, Height, 82, [...] Personnel Name: Noemy CHO, Carmel Castro Position: [facility] Physician - Primary Care Member Role: PCP Address: Address: [address] [place] [address], [address] [place] [address]- Name: Ivory Aldnaa RN Position: [facility] RN Member Role: Primary Care Nurse Care Team Related Persons Name: JUAN JULIAN Address: home [address] [place] [address] Name: LATA REESE Address: [employer] Address: [address] Name: GINA REESE Address: [place] Address: home [address]
--- OUTSIDE RECORDS SUMMARY | 2024-09-04 10:49 | XMS_ITS | Continuity of Care Document ---
Author Organization [facility] Address [address] [facility], 3r d Floor, [address] [place] [id number] Care Team Providers Care Automatic Blocker Name Role Phone Carmel Salguero MD Primary Care Physician Encounter [facility] Date(s): 08/04/24 - 09/03/24 [facility] [address] [place] [address], [address] [place] [id number] Attending Physician: AdmMaryann aguiar Admitting Physician: AdmtrMaryann Referring Physician: Admtr, Ar8 Allergies, Adverse Reactions, Alerts No Known Allergies Immunizations Given and Recorded Vaccine Date Status Refusal Reason influenza virus vaccine, inactivated 09/14/23 Ck rded influenza virus vaccine, inactivated 09/16/22 Ck rded influenza virus vaccine, inactivated 08/07/18 Ck rded influenza virus vaccine, inactivated 09/18/17 Ck rded influenza virus vaccine, inactivated 09/04/11 Ck rded [id number] 12y+ bivalent booster vax 09/16/22 Recorded SARS-CoV-2 mRNA ([id number]) vax 06/16/22 Recorded SARS-CoV-2 (COVID-19) mRNA BNT-162b2 [...] 12/23/23 20:32:00 EST, Route to Pharmacy Electronically, [id number], 173, cm, 11/02/23 11:23:00 EST, Height, 100, kg, 11/01/23 11:01:00 EST, Dry Weight Start Date: 12/23/23 Status: Ordered magnesium oxide 400 mg oral capsule 1 capsule = 400 mg, By Mouth, Daily, # 30 capsule, 3 Refills, Acute 04/30/25 13:54:00 EDT, 04/30/2413:53:00 EDT, [facility]/pharmacy #[id number], Partial fill upon patient request if the prescription is for a schedule II opioid drug., 175, cm, 04/30/24 13:01:00 E... Start Date: 04/30/24 Stop Date: 04/30/25 Status: Ordered SUMAtriptan 100 mg oral tablet See Instructions, TAKE 1 TABLET BY MOUTH ONCE, # 9 tablet, 4 Refills, Maintenance, 05/09/24 6:24:00EDT, [id number], 175, cm, 04/30/24 13:01:00 EDT, Height, 82, [...] : quit 2012; entered on: 03/01/17 Sex Laboratory * Event Display: Non Lab Results Authored Date: Patient Care team information Care Team Personnel Name: Noemy CHO, Carmel Castro Position: [facility] Physician - Primary Care Member Role: PCP Address: Address: [address] [place] [address], [address] [place] [address]- Name: Ivory Aldana RN Position: [facility] RN Member Role: Primary Care Nurse Care Team Related Persons Name: JUAN JULIAN Address: home [address] [place] [address] Name: LATA REESE Address: [employer] Address: home [address] Name: GINA REESE Address: [employer] Address: home [address]
--- NOTE | 2024-09-04 10:51 | A.OFFVIS_ITS ---
Vital Signs 09/04/24 11:08 09/04/24 11:55 BP 113/73 119/80 Blood Pressure Location Lt brachial Lt brachial Position Sitting Sitting Pulse 74 68 Pulse Source Pulse Oximeter Pulse Oximeter Pulse Oximetry (%) 100 100 Oxygen Delivery Method Room Air Room Air Intake Visit Reasons: José Dx L3-L4-DR-L5 MBB/R L5-S1 synovial cyst aspir Allergies Seasonal Allergies Allergy (Verified 09/03/24 11:45) Runny Nose HPI HPI José Dx L3-L4-DR-L5 MBB/R L5-S1 synovial cyst aspir: Details: Patient presents for scheduled procedure. Denies any recent cough, cold, infection, fever or other significant changes in medical history since last office visit. Noncompressive, non canalicular facet cyst reviewed on MRI. Decision made not to attempt aspiration due to non consequential location of the cyst. [facility] Medical History (Updated 09/03/24 @ 12:26 by Ellen Lake MD) Polyarthralgia Plantar fasciitis, left Pelvic pain Ovarian cyst BHANU (obstructive sleep apnea) Morbid obesity Left lumbar radiculopathy Left knee pain Hemangioma Congenital vascular abnormality Low back pain Generalized anxiety disorder Surgical History (Updated 09/03/24 @ 12:26 by Ellen Lake MD) History of bunionectomy Hx of laparoscopic partial gastrectomy Hx of tubal ligation Hx of rhinoplasty Hx of section Social History Household Members: Family and Children Housing: House Do you presently have visiting nurse or other home services: No Alcohol intake: never Patient Tobacco Use Status: Never used Tobacco service: No Current occupational status: unemployed Sexual orientation: Straight/Heterosexual Gender identity: Female Physical Exam Vital Signs: Last Vital Signs Pulse 68 09/04/24 11:55 BP 119/80 09/04/24 11:55 Pulse Ox 100 09/04/24 11:55 Oxygen Delivery Method Room Air 09/04/24 11:55 Office Procedures Lumbar/Sacral Facet Inj Details: Lumbar Medial Branch Block, Bilateral L3, L4 medial branches and L5 Dorsal Ramus (2 levels, 3 nerves) After obtaining written consent, pre-procedure blood pressure and pulse were recorded and are in the nursing record for review. The patient was placed in a prone position. The respective lumbosacral area was prepped with chloraprep and draped in sterile fashion. The skin over the target medial branch nerves was anesthetized with 0.5% lidocaine. A 22 gauge 3.5 inch needle was inserted into the target medial branch nerve under fluoroscopic guidance. No paresthesias were elicited with needle placement and aspiration was negative for blood and CSF. Next, 0.2cc of omnipaque 180 was injected to verify positioning. Next 0.5 ml 0.5% ropivicaine was injected (0.5cc total per level). The identical procedure was performed at the remaining levels. The skin was cleansed and a sterile bandage was applied. Following the procedure the patient's vital signs were stable. The patient tolerated the procedure well and no complications were encountered. Following the procedure the patient's vital signs were stable. The patient was discharged home in good condition with post-procedural instructions. Time Out: Immediately prior to the procedure, the following was verbally confirmed that there is a signed consent form and that the correct patient, planned procedure, site and side are consistent with documentation and that necessary equipment and/or blood products are available prior to the start of the case. Complications: none EBL: <5 cc 05176 - with Fluoroscopy (Bilateral) 73905 - second level, with Fluoroscopy Procedure code (CPT) selection complete Assessment & Plan Assessment & Plan (1) Lumbosacral spondylosis: Code(s): M47.817 - Spondylosis without myelopathy or radiculopathy, lumbosacral region Category: Medical Plan Patient is status post bilateral diagnostic lumbar medial branch blocks. Patient tolerated procedure well and was discharged home in stable condition with discharge instructions. All questions were answered. I had a long discussion with the patient counseling her to incorporate an aggressive home exercise program for core strengthening to arrest the progression of early lumbar spondylosis. Recommended that she undertake 2 months of core strengthening followed by trial of temporary nerve stimulation for pain relief if core strengthening is not effective in improving her symptoms. Orders: Orders FL guidance in treatment room Today M47.817 - Spondylosis without myelopathy or radiculopathy, lumbosacral region Coding Level of Care Code Procedure Only Diagnoses Lumbosacral spondylosis M47.817 CPT Codes Facet Injection-Lumbar/Sacral - CPT: 84722 - with Fluoroscopy ([id number]) Facet Injection-Lumbar/Sacral - CPT: 06814 - second level, with Fluoroscopy ([id number])
[2024-09-04 11:08] VITALS: BP 113/73; PULSE 74; O2SAT 100
[2024-09-04 11:55] VITALS: BP 119/80; PULSE 68; O2SAT 100
== END 2024-09-04 11:55 | disposition home or self-care (01) ==
LOC: HO.PMCPRC 10:47
PROVIDERS: PCP Internal Medicine; Visit Provider Internal Medicine
DX: M47.817 Spondylosis without myelopathy or radiculopathy, lumbosacral region (principal)
CPT/HCPCS: 64493; 64494

== ENCOUNTER 2024-09-12 11:05 | Outpatient (REF) | payer OTHER, SELFPAY ==
--- NOTE | ~2024-09-12 | XR_ITS ---
EXAMINATION: XR THORACIC SPINE 4 VIEWS CLINICAL INFORMATION: Dorsalgia, unspecified M54.9. COMPARISON: None TECHNIQUE: 4 views of the thoracic spine were obtained. FINDINGS: Upper thoracic vertebral bodies are obscured on the lateral projection. In the visualized thoracic spine, there is no evidence of acute fracture or malalignment. Multilevel mild disc degenerative changes. Surgical clips in the upper abdomen. XR/XR thoracic spine 3V IMPRESSION: Suboptimal visualization/evaluation of the upper thoracic vertebral bodies. In the visualized thoracic spine, no evidence of acute fracture or malalignment. Multilevel mild spondylosis. Study is assigned for dictation on November 13, 2024 Electronically signed by: Gerald Zepeda MD 11/13/2024 12:51 PM [facility]
--- NOTE | ~2024-09-12 | XR_ITS ---
EXAMINATION: XR SACROILIAC JOINTS 3 VIEWS CLINICAL INFORMATION: Sacrococcygeal disorders, not elsewhere classified M53.3. COMPARISON: XR Lumbar spine 09/12/2024 TECHNIQUE: 3 views of the sacroiliac joints FINDINGS: SI joints are intact. No radiographic evidence of significant SI joint arthropathy. No acute findings in the visualized bones of the findings. No abnormal soft tissue calcification. XR/XR sacroiliac joint min 3V IMPRESSION: No evidence of significant SI joint arthropathy. Study is assigned for dictation on November 13, 2024 Electronically signed by: Gerald Zepeda MD 11/13/2024 12:11 PM [facility]
--- NOTE | ~2024-09-12 | XR_ITS ---
EXAMINATION: XR CERVICAL SPINE 5 VIEWS CLINICAL INFORMATION: Spondylosis without myelopathy or radiculopathy, cervical region M47.812. COMPARISON: None available TECHNIQUE: 5 views of the cervical spine, inclusive of flexion and extension views, were obtained. FINDINGS: The vertebral alignment appears unremarkable. No intrinsic bony abnormality identified. Suspect mild bilateral neuroforaminal narrowing at C3-C4, left worse than right. The disc heights and neural foramina otherwise appear maintained. The endplates and posterior elements are unremarkable. No fracture or subluxation identified. The surrounding prevertebral soft tissues appear unremarkable. XR/XR cervical spine 4V IMPRESSION: Suspect mild bilateral neuroforaminal narrowing at C3-C4, left worse than right. Electronically signed by: Jay Newsome MD 11/18/2024 04:49 PM [facility]
--- NOTE | ~2024-09-12 | XR_ITS ---
EXAMINATION: XR LUMBAR SPINE 6 VIEWS CLINICAL INFORMATION: Intervertebral disc disorders with radiculopathy, lumbar region M51.16. COMPARISON: MR Lumbar spine without contrast 06/24/2024 TECHNIQUE: 6 views of lumbar spine. FINDINGS: 5 nonrib-bearing lumbar type vertebral bodies. No evidence of acute fracture or subluxation. Vertebral body heights are maintained. Disc spaces are maintained. Surgical clips in the upper abdomen. Nonobstructive bowel gas pattern. Visualized pelvic bones appear intact. No suspicious soft tissue calcification.. XR/XR lumbar spine 4V min IMPRESSION: No acute osseous abnormality. Study is assigned for dictation on November 13, 2024 Electronically signed by: Gerald Zepeda MD 11/13/2024 12:52 PM [facility]
[2024-09-12 11:53] LABS: MANUAL DIFF FLAG NO
[2024-09-12 12:19] LABS: Basophils Percent Auto 0.4 % (0-2); Eosinophils Absolute Auto 0.1 X10*3/uL (0.0-0.4); Eosinophils Percent Auto 0.6 % (0-4); Hematocrit 42.5 % (37.0-47.0); Hemoglobin 13.8 g/dl (12.0-16.0); Imm Gran Abs Auto 0.13 X10*3/uL (0.00-0.03); Imm Gran Pct Auto 1.2 % (0.0-0.4); Lymphocytes Absolute Auto 2.2 X10*3/uL (1.2-4.9); Mean Corpuscular HGB Conc 32.5 g/dl (31.0-35.0); Mean Corpuscular Hemoglobin 29.4 pg (27.0-33.0); Mean Corpuscular Volume 90.4 fL (80.0-98.0); Mean Platelet Volume 8.8 fL (9.4-12.3); Monocytes Absolute Auto 0.5 X10*3/uL (0.1-1.2); Monocytes Percent Auto 4.5 % (2-11); Neutrophils Absolute Auto 7.6 x10*3/uL (2.0-8.3); Neutrophils Percent Auto 72.3 % (45-73); Platelet Count 447 X10*3/uL (160-400); White Blood Count 10.4 X10*3/uL (4.8-10.8)
[2024-09-12 13:10] LABS: Erythrocyte Sedimentation Rate 27 MM/HR (0-20)
[2024-09-12 13:31] LABS: Alanine Aminotransferase 11 U/L (0-31); Albumin Level 4.1 g/dL (3.5-5.0); Alkaline Phosphatase 145 U/L (39-117); Anion Gap 13 (12-20); Aspartate Amino Transferase 14 U/L (5-31); Bilirubin Total 0.5 mg/dL (0.0-1.0); Blood Urea Nitrogen 16 mg/dL (9-16); Calcium 9.8 mg/dL (8.4-10.2); Carbon Dioxide 29 mmol/L (22-29); Chloride 102 mmol/L (96-108); Estimated Glomerular Filt Rate > 60; Glucose Random 76 mg/dL (60-115); Potassium 3.9 mmol/L (3.3-5.1); Sodium 140 mmol/L (135-145)
[2024-09-12 13:55] LABS: Rheumatoid Factor < 13.0 IU/mL (<15.0)
[2024-09-15 19:53] LABS: Cyclic Citrullinated Peptide <16 UNITS
[2024-09-17 11:25] LABS: Anti Nuclear Antibody Pattern Nuclear, Speckled; Anti Nuclear Antibody Screen POSITIVE (NEGATIVE); Anti Nuclear Antibody Titer 1:40 titer
[2024-09-17 15:43] LABS: DNAds, Crithidia Antibody Negative (Negative)
== END 2024-09-12 11:06 | disposition home or self-care (01) ==
LOC: HO.XRAY 11:05
PROVIDERS: PCP Internal Medicine; Visit Provider Nurse Practitioner Family
DX: M51.16 Intervertebral disc disorders with radiculopathy, lumbar region (principal); M53.3 Sacrococcygeal disorders, not elsewhere classified; Z82.61 Family history of arthritis; M47.812 Spondylosis without myelopathy or radiculopathy, cervical region; M54.9 Dorsalgia, unspecified; M47.817 Spondylosis without myelopathy or radiculopathy, lumbosacral region; M54.50 Low back pain, unspecified; M62.830 Muscle spasm of back
CPT/HCPCS: 36415; 72050; 72072; 72110; 72202; 80053; 85025; 85652; 86038; 86039; 86200; 86255; 86431; 99212

== ENCOUNTER 2024-09-12 11:05 | Outpatient (AMB) | payer OTHER, SELFPAY ==
--- NOTE | 2024-09-12 11:06 | A.OFFVIS_ITS ---
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 Guerin. Noncompressive, non canalicular facet cyst reviewed on MRI by Dr. Guerin on 09/04/24 and decision was made not to attempt aspiration due to non consequential location of the cyst per Dr. Guerin's procedure notes. Patient reports 0% pain relief since procedure. Reports recent injections were not well tolerated and aggravated chronic back pain. Today she reports no significant lower back pain and reports it has been more mid back and into her upper and lower neck regions without radicular symptoms. Back pain has been resistant to conservative treatments, including PT. Denies any recent cough, cold, infection, fever, chest pain, dizziness or other significant changes in medical history since last office visit. Past Procedures: 09/04/24: Bilateral Diagnostic L3-L4 DR L5 MBB-0% pain relief PRIOR: Patient presents today via telehealth encounter to review lumbar spine MRI results. Patient denies any recent cough, cold, infection, fever or other significant changes in medical history since last office visit except recent review of her cervical spine MRI at [facility] and plans to undergo injections for C3- C4 disc bulges. She reports cervical spine MRI was completed at [facility]. Patient has tried liquid turmeric from [employer] with partial pain relief. Reports axial low back pain without significant radicular symptoms today. She is concerned if she has rheumatoid arthritis as she has strong family history of RA on her maternal side and would like to undergo baseline lab work to rule out inflammatory arthritis. Denies any weakness, foot drop, bladder or bowel dysfunction, or saddle anesthesia. 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 Denies any recent or past trauma, injury or falls. Patient has 2 years old twins and older child and reports low back pain throughout her pregnancies. She went to [facility] multiple times withing the past 2-3 months for flare up in her back pain with radiation into her right lateral hip, right anterior thigh and adair without numbness or tingling. Bending and flexing forward reproduces moderate-severe symptoms as well as most movements, lifting, twisting, or walking. Patient avoids NSAIDs due to previous bariatric surgery, and has tried Tylenol, Flexeril, morphine and Medrol yves with continued symptoms. She reports significant pain relief from 8-10/10 down to 3/10 with Medrol Yves for one week, completed 1 week ago. Pain is constant and rated at 8/10. She underwent PT evaluation last week and starts her first session today but concerned with participation in PT due to significant pain with any movement. Pain affects her daily activities, functioning, mobility, caring for her children, house chores, sleep, mood and social interactions. Denies any fever, abdominal or groin pain, weakness, foot drop, bladder or bowel dysfunction or saddle anesthesia. Oswestry Low Back Disability Score=27 (severe disability) Location: Lower back pain radiates down right lateral hip, anterior thigh and adair Duration: Chronic pain, on and off for many years, worsening for past 2-3 months Characteristics of symptom or complaint: Sharp, shooting throbbing, stabbing, aching, spasming, tiring Aggravating or associated factors: Any movement, sitting, bending, lifting, walking, twisting, pulling Relieving factors: Sitting, laying, morphine 1/2 tab at night, Tylenol ER, Flexeril, Medrol Treatment: PT started 1 week ago, sleeve gastrectomy (BMI>37 prior to surgery) [facility] Medical History (Updated 09/12/24 @ 11:22 by DIANA Mendoza) Polyarthralgia Plantar fasciitis, left Pelvic pain Ovarian cyst BHANU (obstructive sleep apnea) Morbid obesity Left lumbar radiculopathy Left knee pain Hemangioma Congenital vascular abnormality Low back pain Generalized anxiety disorder Surgical History (Updated 09/03/24 @ 12:26 by Ellen Lake MD) History of bunionectomy Hx of laparoscopic partial gastrectomy Hx of tubal ligation Hx of rhinoplasty Hx of section Social History Household Members: Family and Children Housing: House Do you presently have visiting nurse or other home services: No Alcohol intake: never Patient Tobacco Use Status: Never used Tobacco service: No Current occupational status: unemployed Sexual orientation: Straight/Heterosexual Gender identity: Female Review of Systems Const All systems reviewed & are unremarkable except as noted in HPI and below Physical Exam Vital Signs: Last Vital Signs Pulse 74 09/12/24 11:10 BP 116/67 09/12/24 11:10 Pulse Ox 99 09/12/24 11:10 Oxygen Delivery Method Room Air 09/12/24 11:10 BMI result Body Mass Index 28.1 General: Appears afebrile. Alert and oriented. Mood and affect appropriate. Follows and participates in conversation appropriately. Respiratory effort is unlabored. No cough. Able to transition from sit to stand unassisted. Ambulates with bilaterally normal heel strike and toe off. General: Yes no CVA tenderness Back/Spine/Pelvis Other: Limited lumbar ROM due to pain. Good motor tone. Antalgic gait. No limping. Lumbar extension and flexion reproduces mild symptoms. Demonstrates 5/5 strength of quadriceps bilaterally as well as flexion/dorsiflexion of bilateral feet against resistance. 2+ pedal pulses bilaterally. Seated straight leg rise with dorsiflexion negative bilaterally. +2 patellar and achilles reflexes bilaterally. No clonus. Facet loading test positive bilaterally. Betty sign positive bilaterally. No groin pain with I/E hip rotations. Back: no CVA tenderness Cervical Spine: cervical ROM normal, cervical muscular tenderness, No Cervical spine scars present, No Cervical spine tenderness and No step off deformity Thoracic/Lumbar Spine: thoracic and lumbar spine normal to inspection, No Thoracic/lumbar spine scar(s), Lasegue's sign negative, straight leg raise negative bilaterally, pain with thoraco-lumbar ROM, paraspinal muscle tenderness, thoraco-lumbar ROM limited, No thoracic spinal tenderness and lumbar spinal tenderness at L4 and at L5 Pelvis: no buttock tenderness and no sciatic notch tenderness Sacroiliac joints: bilaterally tender to palpation Extrem General: Yes capillary refill normal, Yes no clubbing, cyanosis or edema and Yes no calf tenderness Results Reviewed Results Reviewed: MR LUMBAR SPINE WITHOUT CONTRAST 06/24/24 CLINICAL INFORMATION: Spondylosis without myelopathy or radiculopathy FINDINGS: There are 5 nonrib-bearing lumbar-type vertebrae. Slight straightening of the normal lumbar lordosis. No listhesis. No acute bone marrow abnormality. The vertebral body heights are preserved. The disc spaces are also preserved. The visualized spinal cord is normal in caliber. No abnormal cord signal. The conus medullaris terminates at L1. T12-L1: No significant spinal canal or neural foraminal narrowing. L1-2: No significant spinal canal or neural foraminal narrowing. L2-3: No significant spinal canal or neural foraminal narrowing. L3-4: Bilateral facet arthrosis. No significant spinal canal or neural foraminal narrowing. L4-5: Bilateral facet arthrosis. No significant spinal canal stenosis. Mild bilateral neural foraminal narrowing. L5-S1: 4 mm extracanalicular synovial cyst abutting the right facet joint. Bilateral facet arthrosis. No significant spinal canal stenosis. Mild left neural foraminal narrowing. The paravertebral soft tissues are unremarkable. IMPRESSION: Bilateral facet arthrosis from L3 to S1. Mild neural foraminal narrowing is seen bilaterally at L4-L5 and on the left at L5-S1. A 4 mm extracanalicular synovial cyst is seen on the right at L5-S1. Assessment & Plan Assessment & Plan (1) Cervical spondylosis: Code(s): M47.812 - Spondylosis without myelopathy or radiculopathy, cervical region Category: Medical (2) Mid back pain: Code(s): M54.9 - Dorsalgia, unspecified Category: Medical (3) Lumbosacral spondylosis: Code(s): M47.817 - Spondylosis without myelopathy or radiculopathy, lumbosacral region Category: Medical (4) Low back pain: Code(s): M54.50 - Low back pain, unspecified Category: Medical (5) Muscle spasm of back: Code(s): M62.830 - Muscle spasm of back Category: Medical Plan Patient is one week status post bilateral diagnostic lumbar medial branch blocks with 0% pain relief. She reports minimal low back pain today and moderate mid back and neck pain. We will proceed with thoracic and cervical xrays to assess degree of arthritis and degenerative changes. Patient was encouraged to continue home exercise program for core strengthening, ROM and functioning improvement. She reports completing PT with minimal pain and function improvement. All questions and concerns have been answered and patient agreed with the treatment plan. Follow up for xray results and sooner as needed. Orders: Orders XR thoracic spine 3V Today M47.812 - Spondylosis without myelopathy or radiculopathy, cervical region, M54.9 - Dorsalgia, unspecified XR cervical spine 4V Today M47.812 - Spondylosis without myelopathy or radiculopathy, cervical region, M54.9 - Dorsalgia, unspecified Coding Level of Care Code Est Pt Level 3 (73219) Complex EM visit Add On G2211 Diagnoses Cervical spondylosis M47.812 Mid back pain M54.9 Lumbosacral spondylosis M47.817 Low back pain M54.50 Muscle spasm of back M62.830
[2024-09-12 11:10] VITALS: BP 116/67; PULSE 74; O2SAT 99; BMI 28.1
== END 2024-09-12 11:30 | disposition home or self-care (01) ==
PROVIDERS: PCP Internal Medicine; Visit Provider Nurse Practitioner Family
DX: M47.812 Spondylosis without myelopathy or radiculopathy, cervical region (principal); M54.9 Dorsalgia, unspecified; M47.817 Spondylosis without myelopathy or radiculopathy, lumbosacral region; M54.50 Low back pain, unspecified; M62.830 Muscle spasm of back
CPT/HCPCS: 99213; G2211

== ENCOUNTER 2024-12-02 10:19 | Outpatient (AMB) | payer OTHER, SELFPAY ==
[2024-12-02 10:20] VITALS: BMI 27.8
--- NOTE | 2024-12-02 10:20 | A.OFFVIS_ITS ---
Vital Signs 3 12/02/24 10:20 Height 5 ft 8 in Weight 183 lb BMI 27.8 Intake Visit Reasons: xray results Allergies Seasonal Allergies Allergy (Verified 12/02/24 10:20) Runny Nose HPI Comments Details: Patient presents today via telehealth encounter to discuss recent spine xray results. She reports 3/10 in her middle back and minimal in her neck and lower back regions. Patient is scheduled to see Rheumatology on 02/18/25 for positive ESR and NICHOLE markers, RA was normal. Patient reports taking Tylenol, Meloxicam and baclofen on as needed basis with partial benefit. Denies any recent cough, cold, infection, fever or other significant changes in medical history since last office visit. PRIOR: Patient presents today to assess response to Bilateral Diagnostic L3-L4 DR L5 MBB on 09/04/[address] Guerin. Noncompressive, non canalicular facet cyst reviewed on MRI by Dr. Guerin on 09/04/24 and decision was made not to attempt aspiration due to non consequential location of the cyst per Dr. Guerin's procedure notes. Patient reports 0% pain relief since procedure. Reports recent injections were not well tolerated and aggravated chronic back pain. Today she reports no significant lower back pain and reports it has been more mid back and into her upper and lower neck regions without radicular symptoms. Back pain has been resistant to conservative treatments, including PT. Denies any recent cough, cold, infection, fever, chest pain, dizziness or other significant changes in medical history since last office visit. Past Procedures: 09/04/24: Bilateral Diagnostic L3-L4 DR L5 MBB-0% pain relief PRIOR: Patient presents today via telehealth encounter to review lumbar spine MRI results. Patient denies any recent cough, cold, infection, fever or other significant changes in medical history since last office visit except recent review of her cervical spine MRI at [facility] and plans to undergo injections for C3- C4 disc bulges. She reports cervical spine MRI was completed at [facility]. Patient has tried liquid turmeric from [employer] [place] with partial pain relief. Reports axial low back pain without significant radicular symptoms today. She is concerned if she has rheumatoid arthritis as she has strong family history of RA on her maternal side and would like to undergo baseline lab work to rule out inflammatory arthritis. Denies any weakness, foot drop, bladder or bowel dysfunction, or saddle anesthesia. 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 Denies any recent or past trauma, injury or falls. Patient has 2 years old twins and older child and reports low back pain throughout her pregnancies. She went to [facility] multiple times withing the past 2-3 months for flare up in her back pain with radiation into her right lateral hip, right anterior thigh and adair without numbness or tingling. Bending and flexing forward reproduces moderate-severe symptoms as well as most movements, lifting, twisting, or walking. Patient avoids NSAIDs due to previous bariatric surgery, and has tried Tylenol, Flexeril, morphine and Medrol yves with continued symptoms. She reports significant pain relief from 8-10/10 down to 3/10 with Medrol Yves for one week, completed 1 week ago. Pain is constant and rated at 8/10. She underwent PT evaluation last week and starts her first session today but concerned with participation in PT due to significant pain with any movement. Pain affects her daily activities, functioning, mobility, caring for her children, house chores, sleep, mood and social interactions. Denies any fever, abdominal or groin pain, weakness, foot drop, bladder or bowel dysfunction or saddle anesthesia. Oswestry Low Back Disability Score=27 (severe disability) Location: Lower back pain radiates down right lateral hip, anterior thigh and adair Duration: Chronic pain, on and off for many years, worsening for past 2-3 months Characteristics of symptom or complaint: Sharp, shooting throbbing, stabbing, aching, spasming, tiring Aggravating or associated factors: Any movement, sitting, bending, lifting, walking, twisting, pulling Relieving factors: Sitting, laying, morphine 1/2 tab at night, Tylenol ER, Flexeril, Medrol Treatment: PT started 1 week ago, sleeve gastrectomy (BMI>37 prior to surgery) [facility] Medical History (Updated 09/17/24 @ 20:25 by DIANA Mendoza) Polyarthralgia Plantar fasciitis, left Pelvic pain Ovarian cyst BHANU (obstructive sleep apnea) Morbid obesity Left lumbar radiculopathy Left knee pain Hemangioma Congenital vascular abnormality Low back pain Generalized anxiety disorder Surgical History (Updated 09/03/24 @ 12:26 by Ellen Lake MD) History of bunionectomy Hx of laparoscopic partial gastrectomy Hx of tubal ligation Hx of rhinoplasty Hx of section Social History Household Members: Family and Children Housing: House Do you presently have visiting nurse or other home services: No Alcohol intake: never Patient Tobacco Use Status: Never used Tobacco service: No Current occupational status: unemployed Sexual orientation: Straight/Heterosexual Gender identity: Female Review of Systems Const All systems reviewed & are unremarkable except as noted in HPI and below ENT Reports Normal hearing present Neuro Reports Normal hearing present and Denies confusion Psych Denies confusion Physical Exam Vital Signs: BMI result Body Mass Index 27.8 Const General: cooperative, alert and awake; No confusion Orientation/consciousness: patient oriented x3 and No confusion Resp Effort & Inspection: able to speak in complete sentences, no audible wheezes and no cough Neuro General: patient oriented x3 and No confusion Cranial nerves: Yes Normal hearing present Cognition (Neuro): normal cognition Psych Mental Status: mental status grossly normal Speech and movement: Clear speech present Affect: normal affect Attitude: cooperative Thought process: Normal thought process present Thought content: Normal thought content present and No Depressive thoughts present Insight: Good insight present (Psych) Judgement: Good judgement present (Psych) Telehealth Telehealth Telehealth Platform: Telephone Location of provider rendering services: practice address Location of patient: address on file Patient Identification confirmed using: Name, : Yes Telehealth method: voice only Patient verbally consented to treatment: Yes Patient verbally consented to billing insurance company: Yes Patient informed of any privacy concerns related to visit: Yes Minutes spent on Phone/Video with Pt.: 13 Results Reviewed Results Reviewed: XR THORACIC SPINE 4 VIEWS 09/12/24 CLINICAL INFORMATION: Dorsalgia, unspecified M54.9. FINDINGS: Upper thoracic vertebral bodies are obscured on the lateral projection. In the visualized thoracic spine, there is no evidence of acute fracture or malalignment. Multilevel mild disc degenerative changes. Surgical clips in the upper abdomen. IMPRESSION: Suboptimal visualization/evaluation of the upper thoracic vertebral bodies. In the visualized thoracic spine, no evidence of acute fracture or malalignment. Multilevel mild spondylosis. XR CERVICAL SPINE 5 VIEWS 09/12/24 CLINICAL INFORMATION: Spondylosis without myelopathy or radiculopathy, cervical region M47.812. FINDINGS: The vertebral alignment appears unremarkable. No intrinsic bony abnormality identified. Suspect mild bilateral neuroforaminal narrowing at C3-C4, left worse than right. The disc heights and neural foramina otherwise appear maintained. The endplates and posterior elements are unremarkable. No fracture or subluxation identified. The surrounding prevertebral soft tissues appear unremarkable. IMPRESSION: Suspect mild bilateral neuroforaminal narrowing at C3-C4, left worse than right. XR LUMBAR SPINE 6 VIEWS 09/12/24 CLINICAL INFORMATION: Intervertebral disc disorders with radiculopathy, lumbar region M51.16. COMPARISON: MR Lumbar spine without contrast 06/24/2024 FINDINGS: 5 nonrib-bearing lumbar type vertebral bodies. No evidence of acute fracture or subluxation. Vertebral body heights are maintained. Disc spaces are maintained. Surgical clips in the upper abdomen. Nonobstructive bowel gas pattern. Visualized pelvic bones appear intact. No suspicious soft tissue calcification.. IMPRESSION: No acute osseous abnormality. XR SACROILIAC JOINTS 3 VIEWS 09/12/24 CLINICAL INFORMATION: Sacrococcygeal disorders, not elsewhere classified M53.3. COMPARISON: XR Lumbar spine 09/12/2024 FINDINGS: SI joints are intact. No radiographic evidence of significant SI joint arthropathy. No acute findings in the visualized bones of the findings. No abnormal soft tissue calcification. IMPRESSION: No evidence of significant SI joint arthropathy. Assessment & Plan Assessment & Plan (1) Cervical spondylosis: Code(s): M47.812 - Spondylosis without myelopathy or radiculopathy, cervical region Category: Medical (2) Mid back pain: Code(s): M54.9 - Dorsalgia, unspecified Category: Medical (3) Lumbosacral spondylosis: Code(s): M47.817 - Spondylosis without myelopathy or radiculopathy, lumbosacral region Category: Medical (4) Low back pain: Code(s): M54.50 - Low back pain, unspecified Category: Medical (5) Muscle spasm of back: Code(s): M62.830 - Muscle spasm of back Category: Medical Plan Spine imaging results and lab reports were discussed with patient today. Reports have been faxed to patient's PCP office. Patient has pending Rheumatology evaluation at [facility] on 02/18/25 at 10:30. Discussed interventional treatments for axial cervical and thoracic back pain. Patient will notify our office if she is interested to undergo diagnostic cervical or thoracic medial branch blocks for potential RFA, Sprint PNS trial or therapeutic injections. Continue Tylenol, meloxicam, baclofen, topical applications, heat therapy as needed for symptomatic relief. Patient was encouraged to continue home exercise program for core strengthening, ROM and functioning improvement. She reports completing PT with minimal pain and function improvement. All questions and concerns have been answered and patient agreed with the treatment plan. Follow up as needed. I hereby testify that I spent 13 minutes in conversation with this patient as well as with planning and coordinating care for this patient and organizing this note. Coding Level of Care Code Tele Est Pt Level 4 (74568) Complex EM visit Add On G2211 Diagnoses Cervical spondylosis M47.812 Mid back pain M54.9 Lumbosacral spondylosis M47.817 Low back pain M54.50 Muscle spasm of back M62.830
== END 2024-12-02 10:34 | disposition home or self-care (01) ==
LOC: HO.PMC 10:19
PROVIDERS: PCP Internal Medicine; Visit Provider Nurse Practitioner Family
DX: M47.812 Spondylosis without myelopathy or radiculopathy, cervical region (principal); M54.9 Dorsalgia, unspecified; M47.817 Spondylosis without myelopathy or radiculopathy, lumbosacral region; M54.50 Low back pain, unspecified; M62.830 Muscle spasm of back
CPT/HCPCS: 98006